=== PATIENT | female | born 1935 | race Caucasian/White ===

== ENCOUNTER → 2016-07-02 | Outpatient (CLI) | payer MEDICARE ==
--- NOTE | 2016-07-02 15:03 | BD ---
EXAMINATION TYPE: MG DEXA axial skeleton. DATE OF EXAM: 07/02/2016 12:44 PM COMPARISON: NONE CLINICAL HISTORY: Osteoporosis, M 81.0 Height: 59 Weight: 186.0 FRAX RISK QUESTIONS: Alcohol (3 or more units per day): no Family History (Parent hip fracture): no Glucocorticoids (More than 3mos): no (Ex: prednisone, prednisolone, methylprednisolone, dexamethasone, and hydrocortisone). History of Fracture in Adulthood: yes Secondary Osteoporosis: 1. Type 1 Diabetes: no 2. Hyperthyroidism: no 3. Menopause before 45: no 4. Malnutrition: no 5. Chronic liver disease: no Rheumatoid Arthritis: no Current Tobacco Use: no RISK FACTORS HISTORY OF: Hip Fracture (Right/Left): no Spine Fracture: no History of Wrist Fracture: right wrist When: 2012 Surgery to Spine/Hip(right/left)/Wrist (right/left): no Family History of Osteoporosis: yes Active: yes Diet low in dairy products/other sources of calcium: no Postmenopausal woman: age 48 Lost more than 2 inches in height since high school: yes Frequent falls: no Poor Health: no Adrenal Insufficiency: no MEDICATIONS: Additional History: EXAM MEASUREMENTS: Bone mineral densitometry was performed using the [employer] System. Bone mineral density as measured about the Lumbar spine is: ----- L1-L4(G/cm2): 1.408 T Score Values are as follows: ----- L2: 1.1 ----- L3: 2.5 ----- L4: 3.2 ----- L1-L4: 1.9 Bone mineral density has: increased 38.4 % since study of: 06.13.2008 Bone mineral density about the R hip (g/cm2): 0.620 Bone mineral density about the L hip (g/cm2): 0.660 T Score values are as follows: -----R Neck: -3.0 -----L Neck: -2.7 -----R Total: -1.5 -----L Total: -1.1 Bone mineral density has: % since study of: 06.13.2008 IMPRESSION: Osteoporosis NOTE: T-SCORE=SD OF THE YOUNG ADULT MEAN.
--- NOTE | 2016-07-03 15:52 | MM ---
Reason for exam: screening (asymptomatic). Last mammogram was performed 2 years and 7 months ago. History: Patient is postmenopausal and is nulliparous. Family history of breast cancer in cousin at age 59 and breast cancer in grandmother at age 58. Benign ultrasound-guided core biopsy of the left breast, October 06, 2001. Benign ultrasound-guided core biopsy of the right breast, September 06, 2000. Took estrogen for 4 years. Took progesterone for 4 years. Physical Findings: A clinical breast exam by your physician is recommended on an annual basis and results should be correlated with mammographic findings. MG 3D Screening Mammo W/Cad Bilateral CC and MLO view(s) were taken. Prior study comparison: December 13, 2013, bilateral MG screening mammo w CAD. December 12, 2012, bilateral digital screening mammo w/CAD. The breast tissue is heterogeneously dense. This may lower the sensitivity of mammography. Finding: There are typically benign calcifications in both breasts. Increase in number of calcifications since December 13, 2013 and December 12, 2012. ASSESSMENT: Probably benign, BI-RAD 3 RECOMMENDATION: Follow-up diagnostic mammogram of both breasts in 6 months.
== END | disposition home or self-care (01) ==
LOC: RADBDWWP 12:39
PROVIDERS: ATTEND Family Medicine
DX: Z12.31 Encounter for screening mammogram for malignant neoplasm of breast (principal); M81.0 Age-related osteoporosis without current pathological fracture
CPT/HCPCS: 77080; 77063; G0202

== ENCOUNTER → 2017-01-07 | Outpatient (CLI) | payer MEDICARE ==
--- NOTE | 2017-01-07 14:38 | MM ---
Reason for exam: follow-up at short interval from prior study. Last mammogram was performed 6 months ago. History: Patient is postmenopausal and is nulliparous. Family history of breast cancer in cousin at age 59 and breast cancer in grandmother at age 58. Benign ultrasound-guided core biopsy of the left breast, October 06, 2001. Benign ultrasound-guided core biopsy of the right breast, September 06, 2000. Took estrogen for 4 years. Took progesterone for 4 years. Physical Findings: Nurse did not find any significant physical abnormalities on exam. MG 3D Diag Mammo W/Cad PEDRO Bilateral CC and MLO view(s) were taken. Prior study comparison: July 02, 2016, bilateral MG 3d screening mammo w/cad. December 13, 2013, bilateral MG screening mammo w CAD. The breast tissue is heterogeneously dense. This may lower the sensitivity of mammography. Finding: There are typically benign calcifications in both breasts similar to priors. No suspicious abnormality. No significant changes in finding since July 02, 2016 and December 13, 2013. These results were verbally communicated with the patient and result sheet given to the patient on 01/07/17. ASSESSMENT: Benign, BI-RAD 2 RECOMMENDATION: Routine screening mammogram of both breasts in 1 year.
== END | disposition home or self-care (01) ==
LOC: RADMAMWWP 13:32
PROVIDERS: ATTEND Family Medicine
DX: R92.8 Other abnormal and inconclusive findings on diagnostic imaging of breast (principal)
CPT/HCPCS: G0204; G0279

== ENCOUNTER → 2019-01-09 | Outpatient (CLI) | payer MEDICARE ==
--- NOTE | 2019-01-10 04:24 | BD ---
EXAMINATION TYPE: Axial Bone Density DATE OF EXAM: 01/09/2019 COMPARISON: 07/02/2016 CLINICAL HISTORY: 83-year-old female postmenopausal screening Height: 57.5 IN Weight: 191 LBS FRAX RISK QUESTIONS: Secondary Osteoporosis: 3. Menopause before 45: AGE 42 RISK FACTORS HISTORY OF: History of Wrist Fracture: YES RT AGE 81 Family History of Osteoporosis: YES MOTHER/SISTER Active: YES Postmenopausal woman: AGE 42 Lost more than 2 inches in height since high school: YES 5" MEDICATIONS: : Osteoporosis Medications: NOT NOW Which medication: Fosamax How Lon YEARS Additional Medications: CALCIUM, VIT D, BLOOD PRESSURE MEDS,CHOLESTEROL MEDS EXAM MEASUREMENTS: Bone mineral densitometry was performed using the [employer] System. Bone mineral density as measured about the Lumbar spine is: ----- L1-L4(G/cm2): 1.338 T Score Values are as follows: ----- L2: 0.7 ----- L3: 0.9 ----- L4: 2.1 ----- L1-L4: 1.3 Bone mineral density has: Decreased -7.6% since study of: 07/02/2016 Bone mineral density about the R hip (g/cm2): 0.594 Bone mineral density about the L hip (g/cm2): 0.625 T Score values are as follows: -----R Neck: -3.2 -----L Neck: -3.0 -----R Total: -1.7 -----L Total: -1.2 Bone mineral density has: Decreased -2.0% since study of: 07/02/2016 IMPRESSION: Osteoporosis (T Score less than -2.5). There is increased fracture risk and therapy is usually indicated based on age. Re-Screen 1-2 years. NOTE: T-SCORE=SD OF THE YOUNG ADULT MEAN.
== END | disposition home or self-care (01) ==
LOC: RADBDWWP 15:10
PROVIDERS: ATTEND Family Medicine
DX: M81.0 Age-related osteoporosis without current pathological fracture (principal)
CPT/HCPCS: 77080

== ENCOUNTER 2021-02-07 12:32 | Inpatient (IN) | payer MEDICARE ==
--- NOTE | 2021-02-07 12:43 | ED ---
SOB HPI - General Stated Complaint: SOB - History of Present Illness Initial Comments: 85-year-old female past history of hypertension, aortic valve replacement events the emergency department with shortness of breath. States that her symptoms started last night and got worse in through today. She had pressure in her chest and was extremely short of breath. She denies previous history of breathing issues before. Denies history of congestive heart failure. Does take Lasix and has not missed any doses. Does not have any lower extremity swelling. No history of COPD denies any fevers or chills. Denies any sick contacts with similar symptoms. She is covid vaccined with moderna x2 earlier this year and is scheduled for her booster on the . She denies any nausea, vomiting or diarrhea. No abdominal. EMS were called to the house by her niece. It is on the patient had an oxygen saturation of 80%. She presents to us on 10 L are no other alleviating, precipitating or modifying factors - Related Data Home Medications Medication Instructions Recorded Confirmed Metoprolol Succinate (ER) [Toprol 25 mg PO DAILY 02/07/21 02/07/21 Xl] Omeprazole 20 mg PO DAILY 02/07/21 02/07/21 PARoxetine HCL [Paxil] 40 mg PO DAILY 02/07/21 02/07/21 Simvastatin [Zocor] 40 mg PO DAILY 02/07/21 02/07/21 amLODIPine [Norvasc] 10 mg PO DAILY 02/07/21 02/07/21 hydroCHLOROthiazide [Hydrodiuril] 12.5 mg PO DAILY 02/07/21 02/07/21 Allergies Allergy/AdvReac Type Severity Reaction Status Date / Time No Known Allergies Allergy Verified 02/07/21 13:52 Review of Systems ROS Statement: Those systems with pertinent positive or pertinent negative responses have been documented in the HPI. ROS Other: All systems not noted in ROS Statement are negative. Course Vital Signs 02/07/21 02/07/21 02/07/21 12:33 12:46 12:49 Temperature 97.4 F L Pulse Rate 73 70 Respiratory 18 18 16 Rate Blood Pressure 149/102 O2 Sat by Pulse 97 93 L Oximetry 02/07/21 02/07/21 15:29 16:24 Temperature Pulse Rate 68 70 Respiratory 18 18 Rate Blood Pressure 160/92 O2 Sat by Pulse 94 L 95 Oximetry Medical Decision Making - Medical Decision Making On arrival patient is placed into room 21. A thorough history and physical exam was performed. IV access is established and laboratory studies are conducted. Patient has a mildly elevated troponin at 0.049. BNP is 2750. Covid not detected. Chest x-ray demonstrates suspected CHF exacerbation. Patient was given 60 mg of Lasix followed by 40 mg every 8 hours. She'll be admitted to Dr. Calderon. Cardiology placed on consult. She remained in stable condition awaiting a bed on the floor - Lab Data Result diagrams: 02/07/21 12:52 02/07/21 12:52 Lab Results 02/07/21 02/07/21 02/07/21 Range/Units 12:52 12:52 12:52 WBC 13.6 H (3.8-10.6) k/uL RBC 4.16 (3.80-5.40) m/uL Hgb 12.2 (11.4-16.0) gm/dL Hct 36.4 (34.0-46.0) % MCV 87.6 (80.0-100.0) fL MCH 29.4 (25.0-35.0) pg MCHC 33.5 (31.0-37.0) g/dL RDW 14.3 (11.5-15.5) % Plt Count 230 (150-450) k/uL MPV 8.4 Neutrophils % 90 % Lymphocytes % 6 % Monocytes % 3 % Eosinophils % 0 % Basophils % 0 % Neutrophils # 12.3 H (1.3-7.7) k/uL Lymphocytes # 0.8 L (1.0-4.8) k/uL Monocytes # 0.4 (0-1.0) k/uL Eosinophils # 0.0 (0-0.7) k/uL Basophils # 0.0 (0-0.2) k/uL PT 10.4 (9.0-12.0) sec INR 1.0 (<1.2) APTT 25.5 (22.0-30.0) sec D-Dimer 0.76 H (<0.60) mg/L FEU Sodium 135 L (137-145) mmol/L Potassium 3.9 (3.5-5.1) mmol/L Chloride 98 (98-107) mmol/L Carbon Dioxide 27 (22-30) mmol/L Anion Gap 10 mmol/L BUN 20 H (7-17) mg/dL Creatinine 0.70 (0.52-1.04) mg/dL Est GFR (CKD-EPI)AfAm >90 (>60 ml/min/1.73 sqM) Est GFR (CKD-EPI)NonAf 79 (>60 ml/min/1.73 sqM) Glucose 160 H (74-99) mg/dL Plasma Lactic Acid Faizan (0.7-2.0) mmol/L Calcium 9.9 (8.4-10.2) mg/dL Total Bilirubin 1.0 (0.2-1.3) mg/dL AST 23 (14-36) U/L ALT 15 (4-34) U/L Alkaline Phosphatase 124 (38-126) U/L Troponin I (0.000-0.034) ng/mL NT-Pro-B Natriuret Pep pg/mL Total Protein 7.0 (6.3-8.2) g/dL Albumin 3.8 (3.5-5.0) g/dL Coronavirus (PCR) (Not Detectd) 02/07/21 02/07/21 02/07/21 Range/Units 12:52 12:52 12:52 WBC (3.8-10.6) k/uL RBC (3.80-5.40) m/uL Hgb (11.4-16.0) gm/dL Hct (34.0-46.0) % MCV (80.0-100.0) fL MCH (25.0-35.0) pg MCHC (31.0-37.0) g/dL RDW (11.5-15.5) % Plt Count (150-450) k/uL MPV Neutrophils % % Lymphocytes % % Monocytes % % Eosinophils % % Basophils % % Neutrophils # (1.3-7.7) k/uL Lymphocytes # (1.0-4.8) k/uL Monocytes # (0-1.0) k/uL Eosinophils # (0-0.7) k/uL Basophils # (0-0.2) k/uL PT (9.0-12.0) sec INR (<1.2) APTT (22.0-30.0) sec D-Dimer (<0.60) mg/L FEU Sodium (137-145) mmol/L Potassium (3.5-5.1) mmol/L Chloride (98-107) mmol/L Carbon Dioxide (22-30) mmol/L Anion Gap mmol/L BUN (7-17) mg/dL Creatinine (0.52-1.04) mg/dL Est GFR (CKD-EPI)AfAm (>60 ml/min/1.73 sqM) Est GFR (CKD-EPI)NonAf (>60 ml/min/1.73 sqM) Glucose (74-99) mg/dL Plasma Lactic Acid Faizan 1.4 (0.7-2.0) mmol/L Calcium (8.4-10.2) mg/dL Total Bilirubin (0.2-1.3) mg/dL AST (14-36) U/L ALT (4-34) U/L Alkaline Phosphatase (38-126) U/L Troponin I 0.049 H* (0.000-0.034) ng/mL NT-Pro-B Natriuret Pep 2750 pg/mL Total Protein (6.3-8.2) g/dL Albumin (3.5-5.0) g/dL Coronavirus (PCR) (Not Detectd) 02/07/21 Range/Units 12:52 WBC (3.8-10.6) k/uL RBC (3.80-5.40) m/uL Hgb (11.4-16.0) gm/dL Hct (34.0-46.0) % MCV (80.0-100.0) fL MCH (25.0-35.0) pg MCHC (31.0-37.0) g/dL RDW (11.5-15.5) % Plt Count (150-450) k/uL MPV Neutrophils % % Lymphocytes % % Monocytes % % Eosinophils % % Basophils % % Neutrophils # (1.3-7.7) k/uL Lymphocytes # (1.0-4.8) k/uL Monocytes # (0-1.0) k/uL Eosinophils # (0-0.7) k/uL Basophils # (0-0.2) k/uL PT (9.0-12.0) sec INR (<1.2) APTT (22.0-30.0) sec D-Dimer (<0.60) mg/L FEU Sodium (137-145) mmol/L Potassium (3.5-5.1) mmol/L Chloride (98-107) mmol/L Carbon Dioxide (22-30) mmol/L Anion Gap mmol/L BUN (7-17) mg/dL Creatinine (0.52-1.04) mg/dL Est GFR (CKD-EPI)AfAm (>60 ml/min/1.73 sqM) Est GFR (CKD-EPI)NonAf (>60 ml/min/1.73 sqM) Glucose (74-99) mg/dL Plasma Lactic Acid Faizan (0.7-2.0) mmol/L Calcium (8.4-10.2) mg/dL Total Bilirubin (0.2-1.3) mg/dL AST (14-36) U/L ALT (4-34) U/L Alkaline Phosphatase (38-126) U/L Troponin I (0.000-0.034) ng/mL NT-Pro-B Natriuret Pep pg/mL Total Protein (6.3-8.2) g/dL Albumin (3.5-5.0) g/dL Coronavirus (PCR) Not Detected (Not Detectd) - EKG Data EKG Comments: EKG demonstrates normal sinus rhythm with a ventricular rate of 73. VA interval of 158. QRS 80. QTC of 447. No acute ST segment elevations or depressions. Disposition Clinical Impression: Congestive heart failure, Hypoxia, NSTEMI (non-ST elevated myocardial infarction) Disposition: ADMITTED IP TO THIS HOSP Condition: Stable Is patient prescribed a controlled substance at d/c from ED?: No Decision to Admit Reason: Admit from EC Decision Date: 02/07/21 Decision Time: 15:59
[2021-02-07 13:20] LABS: Basophils % (A) 0 %; Eosinophils % (A) 0 %; HCT 36.4 % (34.0-46.0); HGB 12.2 gm/dL (11.4-16.0); Lymphocytes # (A) 0.8 k/uL (1.0-4.8); Lymphocytes % (A) 6 %; MCH 29.4 pg (25.0-35.0); MCHC 33.5 g/dL (31.0-37.0); MCV 87.6 fL (80.0-100.0); Mean Platelet Volume 8.4; Monocytes # (A) 0.4 k/uL (0-1.0); Monocytes % (A) 3 %; Neutrophils # (A) 12.3 k/uL (1.3-7.7); Neutrophils % (A) 90 %; Platelet Count 230 k/uL (150-450); RBC 4.16 m/uL (3.80-5.40); RDW 14.3 % (11.5-15.5); WBC 13.6 k/uL (3.8-10.6)
[2021-02-07 13:42] LABS: ALT 15 U/L (4-34); AST 23 U/L (14-36); African American GFR (CKD) >90 (>60 ml/min/1.73 sqM); Albumin 3.8 g/dL (3.5-5.0); Alkaline Phosphatase 124 U/L (38-126); Anion Gap 10 mmol/L; Blood Urea Nitrogen 20 mg/dL (7-17); Calcium 9.9 mg/dL (8.4-10.2); Carbon Dioxide 27 mmol/L (22-30); Chloride 98 mmol/L (98-107); Glucose 160 mg/dL (74-99); Non-African American GFR(CKD) 79 (>60 ml/min/1.73 sqM); Potassium 3.9 mmol/L (3.5-5.1); Sodium 135 mmol/L (137-145)
--- NOTE | 2021-02-07 13:47 | XR ---
EXAMINATION TYPE: XR chest 2V DATE OF EXAM: 02/07/2021 COMPARISON: Chest x-ray August 11, 2010. HISTORY: Difficulty in breathing. TECHNIQUE: Frontal and lateral views of the chest are obtained. FINDINGS: Overlying sternal wires redemonstrated. Persistent cardiomegaly with new small right greate r than left pleural effusions. Background chronic fragment changes with increased opacities bilateral ly. The osseous structures are demineralized. IMPRESSION: Suspect CHF exacerbation as there is cardiomegaly with small bilateral pleural effusions. Bilateral increased opacities favor edema, underlying infiltrates not excluded. Correlate clinically .
[2021-02-07 13:49] LABS: Partial Thromboplastin Time 25.5 sec (22.0-30.0); Prothrombin Time 10.4 sec (9.0-12.0)
[2021-02-07] MEDS ORDERED: FUROSEMIDE 10 MG/ML 10 ML VIAL IV STA (15:58)
[2021-02-07] MEDS ORDERED: NALOXONE 0.4 MG/ML 1 ML VIAL IV PRN (16:04)
[2021-02-07] MEDS: FUROSEMIDE 10 MG/ML 4 ML VIAL IV SCH (23:30)
[2021-02-07] MEDS: ATORVASTATIN 20 MG TAB PO SCH (23:30)
[2021-02-08] MEDS: PANTOPRAZOLE 40 MG TABLET PO SCH (06:07)
[2021-02-08 07:16] LABS: Basophils # (A) 0.1 k/uL (0-0.2); Basophils % (A) 0 %; Eosinophils # (A) 0.1 k/uL (0-0.7); Eosinophils % (A) 1 %; Lymphocytes % (A) 9 %; MCH 29.8 pg (25.0-35.0); MCHC 33.5 g/dL (31.0-37.0); Monocytes # (A) 0.7 k/uL (0-1.0); Monocytes % (A) 6 %; Neutrophils # (A) 9.2 k/uL (1.3-7.7); Neutrophils % (A) 83 %; Platelet Count 234 k/uL (150-450); RBC 4.38 m/uL (3.80-5.40); RDW 14.4 % (11.5-15.5); WBC 11.2 k/uL (3.8-10.6)
[2021-02-08 07:45] LABS: Calcium 9.7 mg/dL (8.4-10.2); Potassium 3.5 mmol/L (3.5-5.1)
[2021-02-08] MEDS ORDERED: amLODIPine 10 MG TAB PO SCH (09:00)
--- NOTE | 2021-02-08 09:17 | CONS ---
CONSULTATION Mrs Arteaga is an 85-year-old female who underwent aortic valve replacement over [address] Granados. According to her, she had no coronary artery bypass grafting at that time. She presents with symptoms of progressive dyspnea, not feeling well. She was having some pressure in the chest and came into the emergency room and was diagnosed with CHF. She has a history of peripheral edema in the past on and off. She is limited in her physical activity. She has no clear PND or orthopnea. No palpitations. No syncope. She has not been followed by Cardiology in over 3 years. Her coronary risk factors are remarkable for hypertension and hyperlipidemia. Her medications at home include HydroDIURIL, amlodipine 10 mg daily, simvastatin mg daily, paroxetine, omeprazole and metoprolol succinate 25 mg daily. REVIEW OF SYSTEMS: RESPIRATORY SYSTEM: She had dyspnea on exertion, the cough. No recent wheezing. GI SYSTEM: No nausea. No vomiting. No GI bleeding. SYSTEM: No dysuria or hematuria. NERVOUS SYSTEM: No stroke or seizure. PHYSICAL EXAMINATION: She is an 85-year-old female, alert, oriented, in no apparent distress, hard of hearing. On presentation she was hypertensive. Her blood pressure now is 120/50 with a heart rate in the 70s. HEAD: Normocephalic. EYES: Sclerae anicteric. NECK: With transmitted murmur on the right side. LUNGS: Crackles at the bases. HEART: Regular rate and rhythm. S1, S2. With systolic murmur 3/6, mid peaking. No diastolic murmur. No rub. ABDOMEN: Soft, nontender, obese. Positive bowel sounds. No organomegaly. EXTREMITIES: No edema. LAB DATA: Lab data revealed BUN and creatinine of 19 and 0.82, potassium 3.5, hemoglobin 13.8, white blood cell count of 11.2. Her troponin 0.049, 0.037, 0.040 and 0.034. Her NT proBNP is 2750. Coronavirus PCR negative. Her EKG revealed a sinus mechanism, rate of 73, normal axis and intervals and nonspecific ST-T wave changes. Her chest x-ray shows evidence of CHF. IMPRESSION: 1. Progressive dyspnea with evidence of congestive heart failure. Her systolic function is unknown. 2. Status post aortic valve replacement over 10 years ago by physical examination suggestive of sclerosis and possible aortic stenosis in the bioprosthetic valve. 3. History of hypertension. 4. Hyperlipidemia. RECOMMENDATIONS: From the cardiac standpoint, I will obtain echocardiogram with Doppler. Patient has been initiated on IV diuretics. I will stop the amlodipine and add an ANGIE inhibitor to her regimen. Depending on the results of testing, further recommendations will be made. Thank you for this consult. Will follow with you. AGUSTIN / KIANN: [id number] /
[2021-02-08] MEDS: FUROSEMIDE 10 MG/ML 4 ML VIAL IV SCH ×3 (09:23→19:52)
[2021-02-08] MEDS: PARoxetine 20 MG TAB PO SCH (09:23)
[2021-02-08] MEDS: ATORVASTATIN 20 MG TAB PO SCH (09:23)
[2021-02-08] MEDS: POTASSIUM CHLORIDE ER 20 MEQ TAB.ER PO SCH (09:23)
[2021-02-08] MEDS: METOPROLOL SUCCINATE (ER) 25 MG TAB.ER.24H PO SCH (09:23)
[2021-02-08] MEDS: lisinopriL 5 MG TAB PO SCH ×2 (09:23→19:52)
--- NOTE | 2021-02-08 13:23 | P.HPIM ---
History of Present Illness H&P Date: 02/08/21 Nitza Arteaga, is an 85-year-old female who presented to [facility] emergency room with a chief complaint of worsening shortness of breath, and chest pressure She was evaluated in the emergency room vital examination on presentation revealed a temperature of 97.4 pulse 70 respirations 16 blood pressure 149/102 pulse ox 93% on 6 L nasal cannula Laboratory data revealed a white blood count of 13.6 hemoglobin 12.2 platelet count 2:30 d-dimer was 0.76 sodium 135 potassium 3.9 chloride 98 CO2 27 BUN 20 creatinine 0.7 troponin level on presentation was 0.049 Testing in the emergency room revealed chest x-ray done in emergency room revealed evidence of congestive heart failure exacerbation with cardiomegaly and small bilateral pleural effusions. EKG revealed normal sinus rhythm with nonspecific ST and T-wave abnormality. Patient was admitted to medical floor for further evaluation and treatment, cardiology consultation was requested Past medical history is significant for history of hypertension, hyperlipidemia, gastroesophageal reflux disease, depression with anxiety disorder, she also has a known history of aortic valve replacement done more than 10 years ago, she den ies any previous history of congestive heart failure or coronary artery disease, she used to see a ink grinder but has not seen him in more than 3 years, there is no echocardiogram available in her hospital chart Past Medical History Past Medical History: Hypertension Additional Past Medical History / Comment(s): Pt states that 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 petite, AORTIC VALVE REPLACEMENT 10 YEARS AGO History of Any Multi-Drug Resistant Organisms: None Reported Past Surgical History: Cardiac Valve Replacement Past Anesthesia/Blood Transfusion Reactions: No Reported Reaction Smoking Status: Never smoker Past Alcohol Use History: None Reported Past Drug Use History: None Reported - Past Family History Mother Family Medical History: Hypertension Medications and Allergies Home Medications Medication Instructions Recorded Confirmed Type Metoprolol Succinate (ER) [Toprol 25 mg PO DAILY 02/07/21 02/07/21 History Xl] Omeprazole 20 mg PO DAILY 02/07/21 02/07/21 History PARoxetine HCL [Paxil] 40 mg PO DAILY 02/07/21 02/07/21 History Simvastatin [Zocor] 40 mg PO DAILY 02/07/21 02/07/21 History amLODIPine [Norvasc] 10 mg PO DAILY 02/07/21 02/07/21 History hydroCHLOROthiazide [Hydrodiuril] 12.5 mg PO DAILY 02/07/21 02/07/21 History Allergies Allergy/AdvReac Type Severity Reaction Status Date / Time No Known Allergies Allergy Verified 02/07/21 13:52 Physical Exam Vitals: Vital Signs Temp Pulse Pulse Resp BP BP BP 02/08/21 12:16 97.6 F 65 16 170/77 02/08/21 08:00 97.5 F L 65 16 118/66 144/70 02/08/21 04:00 99.6 F 74 17 120/49 02/08/21 01:05 67 17 02/07/21 23:58 97.8 F 67 18 141/70 02/07/21 22:45 153/71 02/07/21 22:27 99.5 F 69 18 190/80 02/07/21 16:24 70 18 02/07/21 15:29 68 18 160/92 Pulse Ox 02/08/21 12:16 02/08/21 08:00 94 L 02/08/21 04:00 93 L 02/08/21 01:05 02/07/21 23:58 98 02/07/21 22:45 02/07/21 22:27 93 L 02/07/21 16:24 95 02/07/21 15:29 94 L Intake and Output 02/07/21 02/08/21 02/08/21 22:59 06:59 14:59 Intake Total 128 Output Total 1000 1100 Balance -1000 -1100 128 Intake: IV 10 Invasive Line 1 10 Oral 118 Output: Urine 1000 1100 Other: Voiding Method External Catheter # Bowel Movements 0 Weight 83.915 kg In general patient is alert and oriented x 3 in no distress HEENT head normocephalic and atraumatic Neck is supple no JVD no goiter no lymphadenopathy no carotid bruit Chest examination reveals a scattered crackles in both bases no wheezing Cardiac exam reveals regular heart sounds S1 and S2 no gallops no murmurs Abdomen is soft nontender no organomegaly with normal bowel sounds Extremity exam reveals no edema no cyanosis or clubbing Neurological examination reveals no gross focal deficits Results CBC & Chem 7: 02/08/21 05:38 02/08/21 05:38 Labs: Abnormal Lab Results - Last 24 Hours (Table) 02/07/21 02/07/21 02/07/21 Range/Units 12:52 12:52 12:52 WBC 13.6 H (3.8-10.6) k/uL Neutrophils # 12.3 H (1.3-7.7) k/uL Lymphocytes # 0.8 L (1.0-4.8) k/uL D-Dimer 0.76 H (<0.60) mg/L FEU Sodium 135 L (137-145) mmol/L Chloride (98-107) mmol/L Carbon Dioxide (22-30) mmol/L BUN 20 H (7-17) mg/dL Glucose 160 H (74-99) mg/dL Troponin I (0.000-0.034) ng/mL 02/07/21 02/07/21 02/07/21 Range/Units 12:52 16:23 19:36 WBC (3.8-10.6) k/uL Neutrophils # (1.3-7.7) k/uL Lymphocytes # (1.0-4.8) k/uL D-Dimer (<0.60) mg/L FEU Sodium (137-145) mmol/L Chloride (98-107) mmol/L Carbon Dioxide (22-30) mmol/L BUN (7-17) mg/dL Glucose (74-99) mg/dL Troponin I 0.049 H* 0.037 H* 0.040 H* (0.000-0.034) ng/mL 02/08/21 02/08/21 Range/Units 05:38 05:38 WBC 11.2 H (3.8-10.6) k/uL Neutrophils # 9.2 H (1.3-7.7) k/uL Lymphocytes # (1.0-4.8) k/uL D-Dimer (<0.60) mg/L FEU Sodium 136 L (137-145) mmol/L Chloride 95 L (98-107) mmol/L Carbon Dioxide 34 H (22-30) mmol/L BUN 19 H (7-17) mg/dL Glucose 136 H (74-99) mg/dL Troponin I (0.000-0.034) ng/mL Thrombosis Risk Factor Assmnt - Choose All That Apply Any of the Below Risk Factors Present?: Yes Each Factor Represents 1 point: Heart failure (<1month), Obesity (BMI >25) Each Risk Factor Represents 3 Points: Age 75 years or older Thrombosis Risk Factor Assessment Total Risk Factor Score: 5 Thrombosis Risk Factor Assessment Level: High Risk Assessment and Plan Plan: 1. Worsening shortness of breath, likely related to acute exacerbation of congestive heart failure, will check echo cardiogram 2. Underlying history of hypertension 3. Underlying history of hyperlipidemia 4. Previous history of aortic valve replacement more than 10 years ago 5. Slightly elevated d-dimer at this time will repeat d-dimer again if it is more elevated we will proceed with chest CT angiogram, at this time patient is maintained on Lovenox 40 mg subcu for DVT prophylaxis At this time patient is admitted to telemetry floor She was started on IV Lasix Echocardiogram was ordered and cardiology consultation was requested
[2021-02-08] MEDS: ENOXAPARIN 40 MG/0.4 ML SYRINGE SQ SCH (14:29)
--- NOTE | 2021-02-08 14:48 | ECHOF ---
Referral Reason:avr MEASUREMENTS -------- HEIGHT: 157.5 cm WEIGHT: 74.8 kg BP: MV E Sukhdeep: 0.56 m/s MV DecT: 207 ms MV A Sukhdeep: 0.53 m/s MV E/A Ratio: 1.05 AV maxP.09 mmHg AV meanP.74 mmHg FINDINGS -------- Sinus rhythm. This was a technically difficult study with suboptimal views. This was a techncally difficult study with suboptimal views, , Lumason utilized for enhancement of images. The left ventricular size is normal. There is mild concentric left ventricular hypertrophy. Overa ll left ventricular systolic function is normal with, an EF between 55 - 60 %. The RV was not well visualized. The left atrium was not well visualized. The right atrium was not well visualized. 5.0mg OF Lumason UTLIZED: 2 OR MORE WALL SEGMENTS NOT VISUALIZED. The aortic valve was not well visualized. There is severe aortic stenosis present. Peak/mean grad ient across the Aortic Valve is 83.09mmHg / 47.74mmHg. The mitral valve was not well visualized. The tricuspid valve was not well visualized. The pulmonic valve was not well visualized. There is no pericardial effusion. CONCLUSIONS -------- 1. This was a techncally difficult study with suboptimal views, , Lumason utilized for enhancement of images. 2. There is mild concentric left ventricular hypertrophy. 3. Overall left ventricular systolic function is normal with, an EF between 55 - 60 %. 4. The RV was not well visualized. 5. The left atrium was not well visualized. 6. 5.0mg OF Lumason UTLIZED: 2 OR MORE WALL SEGMENTS NOT VISUALIZED. 7. The aortic valve was not well visualized. 8. There is severe aortic stenosis present. 9. Peak/mean gradient across the Aortic Valve is 83.09mmHg / 47.74mmHg. SURVEY RODMAN: Carissa Rojas RDCS
[2021-02-09] MEDS: PANTOPRAZOLE 40 MG TABLET PO SCH (06:26)
[2021-02-09 08:15] LABS: Basophils % (A) 1 %; Eosinophils # (A) 0.2 k/uL (0-0.7); Eosinophils % (A) 3 %; HCT 35.6 % (34.0-46.0); HGB 11.7 gm/dL (11.4-16.0); Lymphocytes # (A) 1.2 k/uL (1.0-4.8); Lymphocytes % (A) 16 %; MCH 29.2 pg (25.0-35.0); MCHC 32.8 g/dL (31.0-37.0); MCV 88.9 fL (80.0-100.0); Mean Platelet Volume 8.9; Monocytes # (A) 0.8 k/uL (0-1.0); Monocytes % (A) 11 %; Neutrophils % (A) 67 %; Platelet Count 212 k/uL (150-450); RDW 14.4 % (11.5-15.5); WBC 7.4 k/uL (3.8-10.6)
[2021-02-09] MEDS: POTASSIUM CHLORIDE ER 20 MEQ TAB.ER PO SCH (08:21)
[2021-02-09] MEDS: lisinopriL 5 MG TAB PO SCH ×2 (08:21→20:58)
[2021-02-09] MEDS: PARoxetine 20 MG TAB PO SCH (08:21)
[2021-02-09] MEDS: ATORVASTATIN 20 MG TAB PO SCH (08:21)
[2021-02-09] MEDS: METOPROLOL SUCCINATE (ER) 25 MG TAB.ER.24H PO SCH (08:21)
[2021-02-09] MEDS: FUROSEMIDE 10 MG/ML 4 ML VIAL IV SCH (08:22)
[2021-02-09] MEDS: ENOXAPARIN 40 MG/0.4 ML SYRINGE SQ SCH (08:22)
[2021-02-09 08:29] LABS: Albumin 3.1 g/dL (3.5-5.0); Calcium 9.1 mg/dL (8.4-10.2); Potassium 3.5 mmol/L (3.5-5.1); Total Bilirubin 1.2 mg/dL (0.2-1.3)
--- NOTE | 2021-02-09 10:53 | P.PN ---
Subjective Progress Note Date: 02/09/21 Nitza Arteaga, is an 85-year-old female who presented to [facility] emergency room with a chief complaint of worsening shortness of breath, and chest pressure She was evaluated in the emergency room vital examination on presentation revealed a temperature of 97.4 pulse 70 respirations 16 blood pressure 149/102 pulse ox 93% on 6 L nasal cannula Laboratory data revealed a white blood count of 13.6 hemoglobin 12.2 platelet count 2:30 d-dimer was 0.76 sodium 135 potassium 3.9 chloride 98 CO2 27 BUN 20 creatinine 0.7 troponin level on presentation was 0.049 Testing in the emergency room revealed chest x-ray done in emergency room revealed evidence of congestive heart failure exacerbation with cardiomegaly and small bilateral pleural effusions. EKG revealed normal sinus rhythm with n onspecific ST and T-wave abnormality. 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 Discussed with nursing staff. According to family patient has been having frequent episodes of intermittent confusion at home patient's baseline is reported as cognitively impaired. Will check UA to rule out infection no other signs of neurological deficits. Repeat d-dimer 0.73. Will order CTA to rule out PE. 2-D echo completed showing an EF of 55-60%. Patient remains on IV Lasix. Cardiology services following. Patient does report improvement with shortness of breath. Patient denies chest pain. Patient denies nausea vomiting or diarrhea. Patient denies any urinary burning or frequency Objective - Vital Signs Vital signs: Vital Signs Temp 97.7 F 02/09/21 08:05 Pulse 63 02/09/21 08:05 Resp 18 02/09/21 08:05 BP 132/58 02/09/21 08:05 Pulse Ox 96 02/09/21 08:05 Intake & Output 12/18/21 12/19/21 12/19/21 18:59 06:59 18:59 Intake Total 496 280 Output Total 1000 500 Balance -504 -500 280 Weight 81.919 kg Intake: IV 20 20 Invasive Line 1 20 20 Oral 476 260 Output: Urine 1000 500 Other: Voiding Method External Catheter External Catheter External Catheter # Bowel Movements 1 - Exam In general patient is alert and oriented x 3 in no distress HEENT head normocephalic and atraumatic Neck is supple no JVD no goiter no lymphadenopathy no carotid bruit Chest examination reveals a scattered crackles in both bases no wheezing Cardiac exam reveals regular heart sounds S1 and S2 no gallops no murmurs Abdomen is soft nontender no organomegaly with normal bowel sounds Extremity exam reveals no edema no cyanosis or clubbing Neurological examination reveals alert with intermittent episodes of confusion - Labs CBC & Chem 7: 02/09/21 06:56 02/09/21 06:56 Labs: Abnormal Lab Results - Last 24 Hours (Table) 02/08/21 02/09/21 Range/Units 13:52 06:56 D-Dimer 0.73 H (<0.60) mg/L FEU Sodium 136 L (137-145) mmol/L Chloride 96 L (98-107) mmol/L Carbon Dioxide 32 H (22-30) mmol/L BUN 24 H (7-17) mg/dL Glucose 115 H (74-99) mg/dL Total Protein 6.0 L (6.3-8.2) g/dL Albumin 3.1 L (3.5-5.0) g/dL Assessment and Plan Plan: 1. Worsening shortness of breath, likely related to acute exacerbation of congestive heart failure,. 2-D echocardiogram completed showing an EF of 55-60% 2. Underlying history of hypertension 3. Underlying history of hyperlipidemia 4. Previous history of aortic valve replacement more than 10 years ago 5. Slightly elevated d-dimer at this time will repeat d-dimer again if it is more elevated we will proceed with chest CT angiogram, at this time patient is maintained on Lovenox 40 mg subcu for DVT prophylaxis. Repeat d-dimer 0.73 will order CTA to rule out DVT 6. Intermittent episodes of confusion. According to family this is not new. Patient has been having this issue at home will order UA to rule out infection. DVT prophylaxis Lovenox. GI prophylaxis Protonix Patient maintained on IV Lasix CT angiogram ordered to rule out PE due to elevated d-dimer UA ordered to rule out infection Cardiology services following Social work services consulted for discharge planning patient will likely requi re rehab Repeat labs ordered for a.m.
--- NOTE | 2021-02-09 12:21 | PN ---
PROGRESS NOTE Mrs. Arteaga is an 85-year-old female status post aortic valve replacement with progressive of aortic stenosis who presented with symptoms of congestive heart failure. She is feeling much better at this time. Her breathing is better. She denies any chest pain. No dizziness. No palpitations. In the office, I discussed with her the progression of her aortic valve stenosis and at that time did not want to have anything done. She had an echocardiogram performed yesterday that revealed a preserved systolic function with severe aortic bioprosthetic stenosis. She continues to be at this time on: Atorvastatin 20 mg daily, Lasix 40 mg twice a day, lisinopril 5 mg twice a day, metoprolol succinate 25 mg daily. PHYSICAL EXAMINATION: Blood pressure 132/50 with a heart rate in the 60s. Lungs: Clear. Heart regular rate and rhythm, S1, S2. No S3, with systolic ejection murmur, mid to late peaking. No diastolic murmur. Abdomen: Soft and nontender. Extremities: No edema. IMPRESSION: 1. 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 2. History of hypertension. 3. Hyperlipidemia. RECOMMENDATIONS: I discussed with the patient again the natural history of severe aortic stenosis. She is not quite sure what she wants to do. She would like to talk further with her family. In the meantime, we will continue present therapy. I will switch her to oral diuretics, increase her level activity. If she remains stable, she may be able to be discharged home tomorrow. If she is in agreement to proceed with further workup, she may be admitted for valve in valve intervention. MMODL / IJN: [id number] /
--- NOTE | 2021-02-09 14:01 | CT ---
EXAMINATION TYPE: CT chest angio for PE CT DLP: 484.9 mGycm, Automated exposure control for dose reduction was used. DATE OF EXAM: 02/09/2021 1:40 PM COMPARISON: . Chest radiograph from same day. CLINICAL INDICATION:Female, 85 years old with history of elevated d-dimer; PHH, Elevated d-dimer TECHNIQUE/CONTRAST: CTA scan of the thorax is performed with IV Contrast, patient injected with 80 mL of Isovue 370, pulm onary embolism protocol. MIP images are created and reviewed. FINDINGS: Pulmonary Artery: There is no evidence for a central filling defect within the pulmonary vasculature to suggest acute pulmonary embolism. Limited evaluation of the segmental and subsegmental branches se condary to bolus timing. The pulmonary artery is of normal size. Lungs/Pleura: No evidence of focal consolidation or pneumothorax. Intralobular septal thickening is n oted. There is bilateral trace/spinal pleural effusions, left greater than right. Airway: Patent and grossly unremarkable. Heart: There is enlarged for size. Three-vessel coronary artery atherosclerosis is present. Vasculature: Mild atherosclerotic calcifications are present throughout the aorta and its branches. Mediastinum: No gross evidence of adenopathy. Musculoskeletal: No acute osseous abnormalities sternotomy wires are present. Multilevel degenerative disc disease changes throughout the spine. Soft Tissues: Unremarkable. Lower neck: No significant findings. Upper Abdomen: No significant findings. IMPRESSION: 1. No evidence of central pulmonary embolism. Limited evaluation of the segmental and subsegmental br anches. 2. Cardiomegaly with pulmonary vascular congestion concerning for exacerbation of congestive heart fa ilure. Correlate with serum BNP.
[2021-02-09 19:18] LABS: Appearance,Urine Clear (Clear); Bilirubin,Urine Negative (Negative); Blood,Urine Negative (Negative); Color,Urine Yellow; Glucose,Urine (UA) Negative (Negative); Ketones,Urine Negative (Negative); Leukocyte Esterase,Urine Negative (Negative); Nitrite,Urine Negative (Negative); Protein,Urine Negative (Negative); Specific Gravity,Urine >1.050 (1.001-1.035)
[2021-02-09] MEDS: FUROSEMIDE 20 MG TAB PO SCH (20:58)
[2021-02-10 06:04] LABS: Basophils # (A) 0.1 k/uL (0-0.2); Basophils % (A) 1 %; Eosinophils # (A) 0.3 k/uL (0-0.7); Eosinophils % (A) 3 %; HCT 38.4 % (34.0-46.0); HGB 12.1 gm/dL (11.4-16.0); Lymphocytes # (A) 1.2 k/uL (1.0-4.8); Lymphocytes % (A) 14 %; MCH 29.1 pg (25.0-35.0); MCHC 31.7 g/dL (31.0-37.0); Mean Platelet Volume 8.6; Monocytes # (A) 0.7 k/uL (0-1.0); Monocytes % (A) 8 %; Neutrophils # (A) 5.9 k/uL (1.3-7.7); Neutrophils % (A) 71 %; Platelet Count 249 k/uL (150-450); RBC 4.17 m/uL (3.80-5.40); RDW 14.9 % (11.5-15.5); WBC 8.3 k/uL (3.8-10.6)
[2021-02-10 06:21] LABS: Albumin 3.3 g/dL (3.5-5.0); Calcium 9.6 mg/dL (8.4-10.2); Potassium 4.4 mmol/L (3.5-5.1); Total Bilirubin 0.8 mg/dL (0.2-1.3); Total Protein 6.4 g/dL (6.3-8.2)
[2021-02-10] MEDS: PANTOPRAZOLE 40 MG TABLET PO SCH (08:40)
[2021-02-10] MEDS: PARoxetine 20 MG TAB PO SCH (08:40)
[2021-02-10] MEDS: METOPROLOL SUCCINATE (ER) 25 MG TAB.ER.24H PO SCH (08:40)
[2021-02-10] MEDS: FUROSEMIDE 20 MG TAB PO SCH ×2 (08:40→19:51)
[2021-02-10] MEDS: lisinopriL 5 MG TAB PO SCH ×2 (08:40→19:52)
[2021-02-10] MEDS: POTASSIUM CHLORIDE ER 20 MEQ TAB.ER PO SCH (08:41)
[2021-02-10] MEDS: ATORVASTATIN 20 MG TAB PO SCH (08:41)
[2021-02-10] MEDS: ENOXAPARIN 40 MG/0.4 ML SYRINGE SQ SCH (08:41)
--- NOTE | 2021-02-10 11:19 | PN ---
PROGRESS NOTE FOLLOW-UP NOTE: This is an 85-year-old lady who is admitted to hospital with congestive heart failure secondary to severe stenosis of a prosthetic aortic valve. She was unsure if she wants to have anything done about the aortic stenosis. She has been treated with intravenous diuretics with significant improvement in her symptoms. She denies any chest pain or difficulty in breathing and does not have any leg edema. On exam, patient is comfortable at rest. Afebrile. Heart rate is 69 beats per minute. Blood pressure is 140/76, respiratory rate is 18. Oxygen saturation is 94% on 2 L. There is no jugular venous distention. Chest exam reveals good air entry bilaterally. Heart exam reveals first and second heart sounds with an ejection systolic murmur in the aortic area. Abdomen is soft. Examination of extremities revealed mild edema. Peripheral pulses are felt. ASSESSMENT: 1. Congestive heart failure secondary to severe bioprosthetic aortic stenosis. 2. Hypertension. 3. Dyslipidemia. PLAN: Patient is still thinking about whether to have workup and treatment for prosthetic valve stenosis. She will need a [id number] TAVR. Will set up appointment with Cardiology on discharge. MMODL / IJN: [id number] /
--- NOTE | 2021-02-10 11:24 | CDI ---
Documentation Clarification Form Date: 02/10/2021 From: Reyna Mena RN, CCDS Admit Date: 02/07/2021 04:07:00 PM Patient Name: Nitza Arteaga Visit Number: [id number] Discharge Date: ATTENTION: The Clinical Documentation Specialists (CDI) and [facility] Coding Staff appreciate your assistance in clarifying documentation. Please respond to the clarification below the line at the bottom and electronically sign. The CDI & [facility] Coding staff will review the response and follow-up if needed. Please note: Queries are made part of the Legal Health Record. If you have any questions, please contact the author of this message via ITS. Dr. Tania Montero Your patient has the documented diagnosis of unspecified CHF 02/08/21. Additional information regarding the type, acuity of CHF is requested. History/Risk Factors: Hypertension, Hyperlipidemia, severe bioprosthetic aortic stenosis Clinical Indicators: 85-year-old female present with symptoms of progressive dyspnea. She was having some pressure in the chest. She was diagnosed with CHF, She has no clear PND or orthopnea. 02/07 VS/Pulse OX: 149/102 70 16 93 % 6/L NC 02/07BNP:2750, Troponin I 0.049, 0.040, 0.034 Echocardiogram Results: Overall left ventricular systolic function is normal with, an EF between 55-60 % There is severe aortic stenosis present. 02/07 Chest X Ray: Suspect CHF exacerbation as there is cardiomegaly with small bilateral pleural effusions. Treatment: Telemetry monitoring Lasix 60 MG IV Once 02/07, then 40 MG IV q 12 HRS, 02/08-02/09) Lasix 20 MG PO BID Toprol Xl 25 MG PO Daily 02/08-02/10 In your professional opinion, can you please clarify the type and of CHF exacerbation if known? [XXX ] Acute Diastolic Heart Failure (preserved EF) [ ] Acute on Chronic Diastolic Heart Failure (preserved EF) [ ] Other, please specify [ ] Unable to determine (Template Last Revised: March 2020) MTDD
--- NOTE | 2021-02-10 11:43 | CDI ---
Documentation Clarification Form Date: 02/10/2021 11:25:08 AM From: Reyna Mena RN, CCDS Phone: [phone] Admit Date: 02/07/2021 04:07:00 PM Patient Name: Nitza Arteaga Visit Number: [id number] Discharge Date: ATTENTION: The Clinical Documentation Specialists (CDI) and [facility] Coding Staff appreciate your assistance in clarifying documentation. Please respond to the clarification below the line at the bottom and electronically sign. The CDI & [facility] Coding staff will review the response and follow-up if needed. Please note: Queries are made part of the Legal Health Record. If you have any questions, please contact the author of this message via ITS. Dr. Negar Calderon Your patient has complaints of extremely short of breath with oxygen saturation of 80 % per EMS arrival to home. She was 93 % on 6/L NC on arrival to emergency department. Based on this information and the findings below, is there an additional diagnosis that is clinically appropriate for this patient? History/Risk Factors: Hypertension, Hyperlipidemia, severe bioprosthetic aortic stenosis Clinical Indicators: 85-year-old female present with symptoms of progressive dyspnea. She was having some pressure in the chest. She was diagnosed with CHF, She has no clear PND or orthopnea. 02/07 VS/Pulse OX: 149/102 70 16 93 % 6/L NC 02/07 (15:29) 160/92 68 18 94 % 6/L NC 02/10 (08:00) 107/53 65 14 98.3 98 % 2/L NC 02/07BNP:2750, Troponin I 0.049, 0.040, 0.034 Echocardiogram Results: Overall left ventricular systolic function is normal with, an EF between 55-60 % There is severe aortic stenosis present. 02/07 Chest X Ray: Suspect CHF exacerbation as there is cardiomegaly with small bilateral pleural effusions. Treatment: Telemetry monitoring Monitor O2 saturation (titrate) Lasix 60 MG IV Once 02/07, then 40 MG IV q 12 HRS, 02/08-02/09) Lasix 20 MG PO BID Toprol Xl 25 MG PO Daily 02/08-02/10 Is there an additional diagnosis that is clinically appropriate for this patient? [ x ] Acute Hypoxic Respiratory Failure (pO2 <60 mm Hg or SpO2 <91% on room air) [ ] Acute on Chronic Respiratory Failure [ ] Chronic Respiratory Failure [ ] Acute Respiratory Distress [ ] Other Diagnosis, please specify [ ] Unable to determine (Template Last Revised: April 2020) MTDD
--- NOTE | 2021-02-10 12:03 | CDI ---
Documentation Clarification Form Date: 02/10/2021 11:43:36 AM From: Reyna Mena RN, CCDS Admit Date: 02/07/2021 04:07:00 PM Patient Name: Nitza Atreaga Visit Number: [id number] Discharge Date: ATTENTION: The Clinical Documentation Specialists (CDI) and [facility] Coding Staff appreciate your assistance in clarifying documentation. Please respond to the clarification below the line at the bottom and electronically sign. The CDI & [facility] Coding staff will review the response and follow-up if needed. Please note: Queries are made part of the Legal Health Record. If you have any questions, please contact the author of this message via ITS. Dr. Tania Montero NSTEMI (non-ST elevated myocardial infarction) is documented in the emergency department clinical impression but is not noted in subsequent documentation or cardiology consultation and progress note. Clarification is requested to clarify if this diagnosis. History/Risk Factors: Hypertension, Hyperlipidemia, severe bioprosthetic aortic stenosis Clinical Indicators: 85-year-old female present with symptoms of progressive dyspnea. She was having some pressure in the chest. Emergency room clinical impression: Congestive heart failure, Hypoxia, NSTEMI 02/07 VS/Pulse OX: 149/102 70 16 93 % 6/L NC 02/07BNP:2750, Troponin I 0.049, 0.040, 0.034 02/07 EKG: demonstrate normal sinus rhythm with a ventricular rate of 73. [place] interval of 158. QRS 80. QTC of 447. No acute ST segment elevations or depression Echocardiogram Results: Overall left ventricular systolic function is normal with, an EF between 55-60 % there is severe aortic stenosis present. 02/07 Chest X Ray: Suspect CHF exacerbation as there is cardiomegaly with small bilateral pleural effusions. Treatment: Telemetry monitoring Monitor Oxygen Saturations (titrate) Lasix 60 MG IV Once 02/07, then 40 MG IV q 12 HRS, 02/08-02/09) Lasix 20 MG PO BID Toprol XL 25 MG PO Daily 02/08-02/10 Please clarify if the non-ST elevation myocardial infarction is: [ ] Ruled in, confirmed, remains under treatment [ ] Ruled out, [XXX ] Myocardial injury without ischemia due to congestive heart failure [ ] Other condition, please specify [ ] Unable to determine (Template Last Revised: April 2020) MTDD
--- NOTE | 2021-02-10 17:52 | P.PN ---
Subjective Progress Note Date: 02/10/21 Nitza Arteaga, is an 85-year-old female who presented to [facility] emergency room with a chief complaint of worsening shortness of breath, and chest pressure She was evaluated in the emergency room vital examination on presentation revealed a temperature of 97.4 pulse 70 respirations 16 blood pressure 149/102 pulse ox 93% on 6 L nasal cannula Laboratory data revealed a white blood count of 13.6 hemoglobin 12.2 platelet count 2:30 d-dimer was 0.76 sodium 135 potassium 3.9 chloride 98 CO2 27 BUN 20 creatinine 0.7 troponin level on presentation was 0.049 Testing in the emergency room revealed chest x-ray done in emergency room revealed evidence of congestive heart failure exacerbation with cardiomegaly and small bilateral pleural effusions. EKG revealed normal sinus rhythm with n onspecific ST and T-wave abnormality. 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 Discussed with nursing staff. According to family patient has been having frequent episodes of intermittent confusion at home patient's baseline is reported as cognitively impaired. Will check UA to rule out infection no other signs of neurological deficits. Repeat d-dimer 0.73. Will order CTA to rule out PE. 2-D echo completed showing an EF of 55-60%. Patient remains on IV Lasix. Cardiology services following. Patient does report improvement with shortness of breath. Patient denies chest pain. Patient denies nausea vomiting or diarrhea. Patient denies any urinary burning or frequency On 02/10/2021 patient was seen and examined on the telemetry floor she is alert and oriented but still having episodes of intermittent confusion. There is no fever or chills no headache or dizziness no chest pain, her shortness of breath has improved significantly she was switched to oral Lasix, patient is still not sure if she wants to proceed with any valvular procedure, at this time will consult physical therapy and occupational therapy possible discharge to home in the next 1-2 days Objective - Vital Signs Vital signs: Vital Signs Temp 98.0 F 02/10/21 04:00 Pulse 69 02/10/21 04:00 Resp 18 02/10/21 04:00 BP 145/76 02/10/21 04:00 Pulse Ox 94 L 02/10/21 07:20 Intake & Output 02/09/21 02/10/21 02/10/21 18:59 06:59 18:59 Intake Total 1420 10 Output Total 600 Balance 1420 -590 Weight 81.919 kg 81 kg Intake: IV 60 10 Invasive Line 1 40 Invasive Line 2 20 10 Oral 1360 Output: Urine 600 Other: Voiding Method External Catheter Diaper # Voids 1 - Exam In general patient is alert and oriented x 3 in no distress HEENT head normocephalic and atraumatic Neck is supple no JVD no goiter no lymphadenopathy no carotid bruit Chest examination reveals a scattered crackles in both bases no wheezing Cardiac exam reveals regular heart sounds S1 and S2 no gallops no murmurs Abdomen is soft nontender no organomegaly with normal bowel sounds Extremity exam reveals no edema no cyanosis or clubbing Neurological examination reveals alert with intermittent episodes of confusion - Labs CBC & Chem 7: 02/10/21 05:17 02/10/21 05:17 Labs: Abnormal Lab Results - Last 24 Hours (Table) 02/09/21 02/10/21 Range/Units Unknown 05:17 Sodium 134 L (137-145) mmol/L Chloride 94 L (98-107) mmol/L Carbon Dioxide 32 H (22-30) mmol/L BUN 27 H (7-17) mg/dL Creatinine 1.08 H (0.52-1.04) mg/dL Glucose 159 H (74-99) mg/dL Albumin 3.3 L (3.5-5.0) g/dL Ur Specific [place] >1.050 H (1.001-1.035) Assessment and Plan Plan: 1. Worsening shortness of breath, likely related to acute exacerbation of congestive heart failure,. 2-D echocardiogram completed showing an EF of 55-60% 2. Underlying history of hypertension 3. Underlying history of hyperlipidemia 4. Previous history of aortic valve replacement more than 10 years ago 5. Slightly elevated d-dimer at this time will repeat d-dimer again if it is more elevated we will proceed with chest CT angiogram, at this time patient is maintained on Lovenox 40 mg subcu for DVT prophylaxis. Repeat d-dimer 0.73 will order CTA to rule out DVT 6. Intermittent episodes of confusion. According to family this is not new. Patient has been having this issue at home will order UA to rule out infection. DVT prophylaxis Lovenox. GI prophylaxis Protonix Patient maintained on IV Lasix CT angiogram ordered to rule out PE due to elevated d-dimer UA ordered to rule out infection Cardiology services following Social work services consulted for discharge planning patient will likely require rehab Repeat labs ordered for a.m.
[2021-02-11] MEDS: PANTOPRAZOLE 40 MG TABLET PO SCH (06:27)
[2021-02-11 06:31] LABS: Basophils % (A) 1 %; Eosinophils # (A) 0.3 k/uL (0-0.7); Eosinophils % (A) 4 %; HCT 36.2 % (34.0-46.0); HGB 11.8 gm/dL (11.4-16.0); Lymphocytes # (A) 1.1 k/uL (1.0-4.8); Lymphocytes % (A) 15 %; MCH 29.4 pg (25.0-35.0); MCHC 32.6 g/dL (31.0-37.0); MCV 90.2 fL (80.0-100.0); Mean Platelet Volume 8.7; Monocytes # (A) 0.7 k/uL (0-1.0); Monocytes % (A) 9 %; Neutrophils # (A) 5.2 k/uL (1.3-7.7); Neutrophils % (A) 69 %; Platelet Count 244 k/uL (150-450); RBC 4.01 m/uL (3.80-5.40); RDW 14.4 % (11.5-15.5); WBC 7.5 k/uL (3.8-10.6)
[2021-02-11 06:55] LABS: Albumin 3.1 g/dL (3.5-5.0); Calcium 9.3 mg/dL (8.4-10.2); Potassium 4.6 mmol/L (3.5-5.1); Total Bilirubin 0.6 mg/dL (0.2-1.3); Total Protein 6.1 g/dL (6.3-8.2)
[2021-02-11] MEDS: lisinopriL 5 MG TAB PO SCH (08:50)
[2021-02-11] MEDS: FUROSEMIDE 20 MG TAB PO SCH (08:50)
[2021-02-11] MEDS: PARoxetine 20 MG TAB PO SCH (08:50)
[2021-02-11] MEDS: METOPROLOL SUCCINATE (ER) 25 MG TAB.ER.24H PO SCH (08:50)
[2021-02-11] MEDS: ENOXAPARIN 40 MG/0.4 ML SYRINGE SQ SCH (08:50)
[2021-02-11] MEDS: ATORVASTATIN 20 MG TAB PO SCH (08:50)
[2021-02-11] MEDS: POTASSIUM CHLORIDE ER 20 MEQ TAB.ER PO SCH (08:51)
[2021-02-11 09:30] VITALS: TEMP 98.3
--- NOTE | 2021-02-11 14:04 | P.DS ---
Providers Date of admission: 02/07/21 16:07 Expected date of discharge: 02/11/21 Attending physician: Negar Calderon Consults: 02/07/21 16:05 Consult Physician Urgent Consulting Provider: [facility] Consult Reason/Comments: acute hypoxic resp failure, aechf Do you want consulting provider notified?: Yes Primary care physician: Kiara Valerio [facility] Course: Diagnosis on discharge: 1. Worsening shortness of breath, likely related to acute exacerbation of congestive heart failure,. 2-D echocardiogram completed showing an EF of 55-60% 2. Underlying history of hypertension 3. Underlying history of hyperlipidemia 4. Previous history of aortic valve replacement more than 10 years ago. With evidence of severe aortic stenosis at this time, patient will follow-up with cardiology to decide whether she wants to proceed with further intervention on the aortic valve 5. Slightly elevated d-dimer at this time will repeat d-dimer again if it is more elevated we will proceed with chest CT angiogram, at this time patient is maintained on Lovenox 40 mg subcu for DVT prophylaxis. Repeat d-dimer 0.73 will order CTA to rule out DVT 6. Intermittent episodes of confusion. According to family this is not new. Patient has been having this issue at home will order UA to rule out infection. Hospital course: Nitza Arteaga, is an 85-year-old female who presented to [facility] emergency room with a chief complaint of worsening shortness of breath, and chest pressure She was evaluated in the emergency room vital examination on presentation revealed a temperature of 97.4 pulse 70 respirations 16 blood pressure 149/102 pulse ox 93% on 6 L nasal cannula Laboratory data revealed a white blood count of 13.6 hemoglobin 12.2 platelet count 2:30 d-dimer was 0.76 sodium 135 potassium 3.9 chloride 98 CO2 27 BUN 20 creatinine 0.7 troponin level on presentation was 0.049 Testing in the emergency room revealed chest x-ray done in emergency room revealed evidence of congestive heart failure exacerbation with cardiomegaly and small bilateral pleural effusions. EKG revealed normal sinus rhythm with nonspecific ST and T-wave abnormality. 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 Discussed with nursing staff. According to family patient has been having frequent episodes of intermittent confusion at home patient's baseline is reported as cognitively impaired. Will check UA to rule out infection no other signs of neurological deficits. Repeat d-dimer 0.73. Will order CTA to rule out PE. 2-D echo completed showing an EF of 55-60%. Patient remains on IV Lasix. Cardiology services following. Patient does report improvement with shortness of breath. Patient denies chest pain. Patient denies nausea vomiting or diarrhea. Patient denies any urinary burning or frequency On 02/10/2021 patient was seen and examined on the telemetry floor she is alert and oriented but still having episodes of intermittent confusion. There is no fever or chills no headache or dizziness no chest pain, her shortness of breath has improved significantly she was switched to oral Lasix, patient is still not sure if she wants to proceed with any valvular procedure, at this time will consult physical therapy and occupational therapy possible discharge to home in the next 1-2 days On 02/11/2021atient was seen and examined on the medical floor, he is alert and oriented x 3 in no distress, he denies any complaints there is no fever or chills no headache or dizziness no chest pain no shortness of breath no palpitation no cough no nausea or vomiting no abdominal pain no diarrhea no blood in the stools no burning with urination no frequency or urgency and no hematuria, there is no weakness or numbness in any of the extremities no change in vision speech or gait., No change in condition since yesterday plan is [facility]. During this admission amlodipine was discontinued lisinopril 5 mg twice daily was added and Lasix 20 mg twice daily and potassium 20 mEq once daily were added. Patient Condition at Discharge: Stable Plan - Discharge Summary New Discharge Prescriptions: New Potassium Chloride ER [K-Dur 20] 20 meq PO DAILY tablet Furosemide [Lasix] 20 mg PO BID tab lisinopriL [Zestril] 5 mg PO BID tab Continue Omeprazole 20 mg PO DAILY Metoprolol Succinate (ER) [Toprol XL] 25 mg PO DAILY Simvastatin [Zocor] 40 mg PO DAILY PARoxetine HCL [Paxil] 40 mg PO DAILY Discontinued hydroCHLOROthiazide [Hydrodiuril] 12.5 mg PO DAILY amLODIPine [Norvasc] 10 mg PO DAILY Discharge Medication List Metoprolol Succinate (ER) [Toprol XL] 25 mg PO DAILY 02/07/21 [History] Omeprazole 20 mg PO DAILY 02/07/21 [History] PARoxetine HCL [Paxil] 40 mg PO DAILY 02/07/21 [History] Simvastatin [Zocor] 40 mg PO DAILY 02/07/21 [History] Furosemide [Lasix] 20 mg PO BID tab 02/11/21 [Rx] Potassium Chloride ER [K-Dur 20] 20 meq PO DAILY tablet 02/11/21 [Rx] lisinopriL [Zestril] 5 mg PO BID tab 02/11/21 [Rx] Follow up Appointment(s)/Referral(s): Tania Montero MD [STAFF PHYSICIAN] - 1 Week Kiara Valerio MD [Primary Care Provider] - 1-2 days Activity/Diet/Wound Care/Special Instructions: Patient will require home oxygen at discharge secondary to CHF
[2021-02-11 16:03] VITALS: BP 126/70; PULSE 65; RESP 16
== END 2021-02-11 17:17 | DRG 291 ==
LOC: EC 12:32 → 3SCARD 16:07
PROVIDERS: ADMIT Internal Medicine; ATTEND Internal Medicine
DX: I11.0 Hypertensive heart disease with heart failure (principal); I50.31 Acute diastolic (congestive) heart failure; J96.01 Acute respiratory failure with hypoxia; Z20.822 Contact with and (suspected) exposure to COVID-19; I5A Non-ischemic myocardial injury (non-traumatic); Z95.2 Presence of prosthetic heart valve; I35.0 Nonrheumatic aortic (valve) stenosis; F32.A Depression, unspecified; F41.9 Anxiety disorder, unspecified; K21.9 Gastro-esophageal reflux disease without esophagitis; E78.5 Hyperlipidemia, unspecified; Z79.899 Other long term (current) drug therapy; Z82.49 Family history of ischemic heart disease and other diseases of the circulatory system
CPT/HCPCS: 36415; 71046; 71275; 80048; 80053; 81003; 83605; 83880; 84484; 85025; 85379; 85610; 85730; 87635; 93005; 93306; 94760; 99285

== ENCOUNTER 2021-02-25 15:16 | Inpatient (IN) | payer MEDICARE ==
--- NOTE | 2021-02-25 15:58 | ED ---
General Adult HPI - General Chief complaint: Altered Mental Status Stated complaint: Altered mental status Time Seen by Provider: 02/25/21 15:37 Source: patient, EMS, RN notes reviewed Mode of arrival: EMS Limitations: altered mental status - History of Present Illness Initial comments: Patient is a pleasant 86-year-old female presenting to the emergency department with concerns for change in mental status. Patient is at rehab and was being discharged today when change in mental status was noticed. Unclear onset. Patient makes inappropriate statements and laughs inappropriately. Patient makes nonsensical statements. This is reported is new. Patient states she feels her vision is normal as she states she inherited her mom's eye disease. - Related Data Home Medications Medication Instructions Recorded Confirmed Metoprolol Succinate (ER) [Toprol 25 mg PO DAILY@0900 02/07/21 02/25/21 XL] Omeprazole 20 mg PO DAILY@0600 02/07/21 02/25/21 PARoxetine HCL [Paxil] 40 mg PO DAILY@0900 02/07/21 02/25/21 Simvastatin [Zocor] 40 mg PO HS@2100 02/07/21 02/25/21 Ammonium Lactate Lotion 1 applic TOPICAL Q12H 02/25/21 02/25/21 [Lac-Hydrin 12% Lotion] Bismuth Subsalicylate 524 mg PO Q4H PRN 02/25/21 02/25/21 [Pepto-Bismol] Furosemide [Lasix] 20 mg PO BID@0600,1400 02/25/21 02/25/21 Potassium Chloride ER [K-Dur 20] 20 meq PO DAILY@0900 02/25/21 02/25/21 lisinopriL [Zestril] 5 mg PO BID@0900,2100 02/25/21 02/25/21 Allergies Allergy/AdvReac Type Severity Reaction Status Date / Time No Known Allergies Allergy Verified 02/25/21 16:55 Review of Systems ROS Statement: Those systems with pertinent positive or pertinent negative responses have been documented in the HPI. ROS Other: All systems not noted in ROS Statement are negative. Constitutional: Denies: fever Eyes: Reports: as per HPI. Denies: eye pain ENT: Denies: ear pain Respiratory: Denies: cough Cardiovascular: Denies: palpitations Endocrine: Denies: fatigue Gastrointestinal: Denies: abdominal pain Genitourinary: Denies: dysuria Musculoskeletal: Denies: back pain Skin: Denies: rash Neurological: Reports: as per HPI, confusion. Denies: headache, weakness Past Medical History Past Medical History: Heart Failure, GERD/Reflux, Hyperlipidemia, Hypertension Additional Past Medical History / Comment(s): , AORTIC VALVE REPLACEMENT 10 YEARS AGO History of Any Multi-Drug Resistant Organisms: None Reported Past Surgical History: Cardiac Valve Replacement Past Anesthesia/Blood Transfusion Reactions: No Reported Reaction Past Psychological History: No Psychological Hx Reported Smoking Status: Never smoker Past Alcohol Use History: None Reported Past Drug Use History: None Reported - Past Family History Mother Family Medical History: Hypertension General Exam Limitations: altered mental status General appearance: alert, in no apparent distress Eye exam: Present: other (Disconjugate gaze. Unable to move right eye left of midline.). Absent: EOMI ENT exam: Present: normal oropharynx Neck exam: Present: normal inspection Respiratory exam: Present: normal lung sounds bilaterally Cardiovascular Exam: Present: regular rate, normal rhythm GI/Abdominal exam: Present: soft. Absent: tenderness Back exam: Present: normal inspection Neurological exam: Present: alert. Absent: motor sensory deficit Expanded Neurological exam: Present: protecting the airway Patient oriented to: Present: person. Absent: place, time Sensory exam: Upper Extremity Light Touch: Normal, Lower Extremity Light Touch: Normal Motor strength exam: RUE: 5, LUE: 5, RLE: 5, LLE: 5 Eye Response: (4) open spontaneously Motor Response: (6) obeys commands Verbal Response: (4) confused conversation Psychiatric exam: Present: other (Inappropriately laughing) Skin exam: Present: normal color Course Vital Signs 02/25/21 15:28 Temperature 97.3 F L Pulse Rate 79 Respiratory 20 Rate Blood Pressure 135/90 O2 Sat by Pulse 93 L Oximetry EKG Findings - EKG Comments: EKG Findings:: Normal sinus rhythm 76. PA 150. QRS 74. QT 392. QTC 441. Nor mal axis. Normal QRS. No acute ST change. Medical Decision Making - Medical Decision Making Patient reevaluated and resting comfortably in bed. Family is now present. Family states mental status change is chronic and only minimally worse from baseline. Family is not concerned regarding change of mental status. They are concerned the patient has not been eating much for the past several days and has had persistent vomiting. Case was discussed with Dr. Calderon, who will admit covering Dr. meredith. Abdominal x-rays will be ordered. Fluids will be ordered. - Lab Data Result diagrams: 02/25/21 16:06 02/25/21 16:06 Lab Results 02/25/21 02/25/21 02/25/21 Range/Units 16:06 16:06 16:06 WBC 23.8 H (3.8-10.6) k/uL RBC 3.91 (3.80-5.40) m/uL Hgb 11.3 L (11.4-16.0) gm/dL Hct 35.2 (34.0-46.0) % MCV 90.2 (80.0-100.0) fL MCH 29.0 (25.0-35.0) pg MCHC 32.1 (31.0-37.0) g/dL RDW 14.3 (11.5-15.5) % Plt Count 339 (150-450) k/uL MPV 8.9 Neutrophils % 91 % Lymphocytes % 4 % Monocytes % 4 % Eosinophils % 0 % Basophils % 0 % Neutrophils # 21.8 H (1.3-7.7) k/uL Lymphocytes # 0.9 L (1.0-4.8) k/uL Monocytes # 0.9 (0-1.0) k/uL Eosinophils # 0.0 (0-0.7) k/uL Basophils # 0.0 (0-0.2) k/uL PT (9.0-12.0) sec INR (<1.2) APTT (22.0-30.0) sec Sodium 134 L (137-145) mmol/L Potassium 4.8 (3.5-5.1) mmol/L Chloride 97 L (98-107) mmol/L Carbon Dioxide 25 (22-30) mmol/L Anion Gap 12 mmol/L BUN 66 H (7-17) mg/dL Creatinine 1.24 H (0.52-1.04) mg/dL Est GFR (CKD-EPI)AfAm 45 (>60 ml/min/1.73 sqM) Est GFR (CKD-EPI)NonAf 39 (>60 ml/min/1.73 sqM) Glucose 138 H (74-99) mg/dL Calcium 9.2 (8.4-10.2) mg/dL Total Bilirubin 1.1 (0.2-1.3) mg/dL AST 79 H (14-36) U/L ALT 77 H (4-34) U/L Alkaline Phosphatase 223 H (38-126) U/L Troponin I <0.012 (0.000-0.034) ng/mL Total Protein 5.9 L (6.3-8.2) g/dL Albumin 2.9 L (3.5-5.0) g/dL Urine Color Urine Appearance (Clear) Urine pH (5.0-8.0) Ur Specific [place] (1.001-1.035) Urine Protein (Negative) Urine Glucose (UA) (Negative) Urine Ketones (Negative) Urine Blood (Negative) Urine Nitrite (Negative) Urine Bilirubin (Negative) Urine Urobilinogen (<2.0) mg/dL Ur Leukocyte Esterase (Negative) Urine RBC (0-5) /hpf Urine WBC (0-5) /hpf Ur Squamous Epith Cells (0-4) /hpf Amorphous Sediment (None) /hpf Hyaline Casts (0-2) /lpf Urine Mucus (None) /hpf Urine Opiates Screen (NotDetected) Ur Oxycodone Screen (NotDetected) Urine Methadone Screen (NotDetected) Ur Propoxyphene Screen (NotDetected) Ur Barbiturates Screen (NotDetected) U Tricyclic Antidepress (NotDetected) Ur Phencyclidine Scrn (NotDetected) Ur Amphetamines Screen (NotDetected) U Methamphetamines Scrn (NotDetected) U Benzodiazepines Scrn (NotDetected) Urine Cocaine Screen (NotDetected) U Marijuana (THC) Screen (NotDetected) 02/25/21 02/25/21 Range/Units 17:10 17:11 WBC (3.8-10.6) k/uL RBC (3.80-5.40) m/uL Hgb (11.4-16.0) gm/dL Hct (34.0-46.0) % MCV (80.0-100.0) fL MCH (25.0-35.0) pg MCHC (31.0-37.0) g/dL RDW (11.5-15.5) % Plt Count (150-450) k/uL MPV Neutrophils % % Lymphocytes % % Monocytes % % Eosinophils % % Basophils % % Neutrophils # (1.3-7.7) k/uL Lymphocytes # (1.0-4.8) k/uL Monocytes # (0-1.0) k/uL Eosinophils # (0-0.7) k/uL Basophils # (0-0.2) k/uL PT 10.6 (9.0-12.0) sec INR 1.0 (<1.2) APTT 18.6 L (22.0-30.0) sec Sodium (137-145) mmol/L Potassium (3.5-5.1) mmol/L Chloride (98-107) mmol/L Carbon Dioxide (22-30) mmol/L Anion Gap mmol/L BUN (7-17) mg/dL Creatinine (0.52-1.04) mg/dL Est GFR (CKD-EPI)AfAm (>60 ml/min/1.73 sqM) Est GFR (CKD-EPI)NonAf (>60 ml/min/1.73 sqM) Glucose (74-99) mg/dL Calcium (8.4-10.2) mg/dL Total Bilirubin (0.2-1.3) mg/dL AST (14-36) U/L ALT (4-34) U/L Alkaline Phosphatase (38-126) U/L Troponin I (0.000-0.034) ng/mL Total Protein (6.3-8.2) g/dL Albumin (3.5-5.0) g/dL Urine Color Yellow Urine Appearance Cloudy H (Clear) Urine pH 5.0 (5.0-8.0) Ur Specific [place] 1.016 (1.001-1.035) Urine Protein Negative (Negative) Urine Glucose (UA) Negative (Negative) Urine Ketones Negative (Negative) Urine Blood Trace H (Negative) Urine Nitrite Negative (Negative) Urine Bilirubin Negative (Negative) Urine Urobilinogen <2.0 (<2.0) mg/dL Ur Leukocyte Esterase Negative (Negative) Urine RBC 3 (0-5) /hpf Urine WBC 5 (0-5) /hpf Ur Squamous Epith Cells 1 (0-4) /hpf Amorphous Sediment Rare H (None) /hpf Hyaline Casts 54 H (0-2) /lpf Urine Mucus Occasional H (None) /hpf Urine Opiates Screen Not Detected (NotDetected) Ur Oxycodone Screen Not Detected (NotDetected) Urine Methadone Screen Not Detected (NotDetected) Ur Propoxyphene Screen Not Detected (NotDetected) Ur Barbiturates Screen Not Detected (NotDetected) U Tricyclic Antidepress Not Detected (NotDetected) Ur Phencyclidine Scrn Not Detected (NotDetected) Ur Amphetamines Screen Not Detected (NotDetected) U Methamphetamines Scrn Not Detected (NotDetected) U Benzodiazepines Scrn Not Detected (NotDetected) Urine Cocaine Screen Not Detected (NotDetected) U Marijuana (THC) Screen Not Detected (NotDetected) - Radiology Data Radiology results: report reviewed (CT of the brain shows atrophy. No acute abnormality), image reviewed (Chest x-ray shows possible edema or fibrosis. Cardiomegaly. No significant change from recent study.) Disposition Clinical Impression: ARF (acute renal failure) Disposition: ADMITTED IP TO THIS HOSP Is patient prescribed a controlled substance at d/c from ED?: No Referrals: Kiara Valerio MD [Primary Care Provider] - 1-2 days Decision Time: 18:14
[2021-02-25 16:20] LABS: Basophils % (A) 0 %; Eosinophils % (A) 0 %; HCT 35.2 % (34.0-46.0); HGB 11.3 gm/dL (11.4-16.0); Lymphocytes # (A) 0.9 k/uL (1.0-4.8); Lymphocytes % (A) 4 %; MCHC 32.1 g/dL (31.0-37.0); MCV 90.2 fL (80.0-100.0); Mean Platelet Volume 8.9; Monocytes # (A) 0.9 k/uL (0-1.0); Monocytes % (A) 4 %; Neutrophils # (A) 21.8 k/uL (1.3-7.7); Neutrophils % (A) 91 %; Platelet Count 339 k/uL (150-450); RBC 3.91 m/uL (3.80-5.40); RDW 14.3 % (11.5-15.5); WBC 23.8 k/uL (3.8-10.6)
[2021-02-25 16:29] LABS: Albumin 2.9 g/dL (3.5-5.0); Calcium 9.2 mg/dL (8.4-10.2); Potassium 4.8 mmol/L (3.5-5.1); Total Bilirubin 1.1 mg/dL (0.2-1.3); Total Protein 5.9 g/dL (6.3-8.2)
--- NOTE | 2021-02-25 16:34 | XR ---
EXAMINATION TYPE: XR chest 2V DATE OF EXAM: 02/25/2021 COMPARISON: Chest x-ray February 07, 2021. CTA chest February 09, 2021 HISTORY: Altered mental status and weakness. TECHNIQUE: Frontal and lateral views of the chest are obtained. FINDINGS: Overlying sternal wires redemonstrated. Persistent parenchymal increased markings bilateral ly. Persistent cardiomegaly. No new focal airspace opacity, pleural effusion, or pneumothorax seen. O sseous structures are intact. IMPRESSION: Cardiomegaly and parenchymal changes could reflect edema or fibrosis. Correlate clinical ly. No significant change from recent x-ray.
--- NOTE | 2021-02-25 16:52 | CT ---
EXAMINATION TYPE: CT brain wo con DATE OF EXAM: 02/25/2021 COMPARISON: None HISTORY: Altered mental status. CT DLP: 1099.4 mGycm Automated exposure control for dose reduction was used. There is cerebral cortical atrophy. There is no mass effect or midline shift. There is no sign of int racranial hemorrhage. Calvarium is intact. IMPRESSION: Cerebral atrophy. No acute intracranial abnormality.
[2021-02-25 17:24] LABS: Amorphous Sediment,Urine Rare /hpf; Appearance,Urine Cloudy (Clear); Bilirubin,Urine Negative (Negative); Blood,Urine Trace (Negative); Color,Urine Yellow; Glucose,Urine (UA) Negative (Negative); Hyaline Casts,Urine 54 /lpf (0-2); Ketones,Urine Negative (Negative); Leukocyte Esterase,Urine Negative (Negative); Mucus,Urine Occasional /hpf; Nitrite,Urine Negative (Negative); Protein,Urine Negative (Negative); RBC,Urine 3 /hpf (0-5); Specific Gravity,Urine 1.016 (1.001-1.035); Squamous Epithelial Cell,Urine 1 /hpf (0-4); Urobilinogen,Urine <2.0 mg/dL (<2.0); WBC,Urine 5 /hpf (0-5)
[2021-02-25 17:30] LABS: Amphetamine Screen,Urine Not Detected (NotDetected); Barbiturate Screen,Urine Not Detected (NotDetected); Benzodiazepines Screen,Urine Not Detected (NotDetected); Cocaine Screen,Urine Not Detected (NotDetected); Methadone Screen, Urine Not Detected (NotDetected); Opiate Screen,Urine Not Detected (NotDetected); Oxycodone Screen, Urine Not Detected (NotDetected); Phencyclidine Screen,Urine Not Detected (NotDetected); Tricyclic Antidepressant,Urine Not Detected (NotDetected); Urn Cannabinoid Scrn Not Detected (NotDetected)
[2021-02-25 17:33] LABS: Prothrombin Time 10.6 sec (9.0-12.0)
[2021-02-25 17:47] LABS: Partial Thromboplastin Time 18.6 sec (22.0-30.0)
[2021-02-25] MEDS ORDERED: NALOXONE 0.4 MG/ML 1 ML VIAL IV PRN (18:15)
[2021-02-25 18:39] LABS: Amylase 41 U/L (30-110); Lipase 56 U/L (23-300)
--- NOTE | 2021-02-25 18:50 | XR ---
EXAMINATION TYPE: XR abdomen 1V DATE OF EXAM: 02/25/2021 COMPARISON: NONE HISTORY: Vomiting TECHNIQUE: 2 views supine FINDINGS: There are multiple dilated small bowel loops with gas and fluid. There is no evidence for f ree air. There is also some gaseous distention of the transverse colon. There is mild blunting of the right costophrenic angle. There is gas in the ascending colon. IMPRESSION: Gas filled and mildly dilated small bowel could relate to ileus or partial mechanical obs truction. Small right pleural effusion.
[2021-02-25] MEDS: SODIUM CHLORIDE 0.9% 1,000 ML IV SCH (19:55)
[2021-02-25] MEDS: PANTOPRAZOLE 40 MG/10 ML VIAL IV SCH (19:55)
[2021-02-26] MEDS: SODIUM CHLORIDE 0.9% 1,000 ML IV SCH ×3 (03:24→20:50)
[2021-02-26 08:28] LABS: Basophils % (A) 0 %; Eosinophils # (A) 0.3 k/uL (0-0.7); Eosinophils % (A) 2 %; HGB 11.3 gm/dL (11.4-16.0); Lymphocytes # (A) 1.3 k/uL (1.0-4.8); Lymphocytes % (A) 8 %; MCH 29.4 pg (25.0-35.0); MCHC 32.1 g/dL (31.0-37.0); MCV 91.4 fL (80.0-100.0); Monocytes # (A) 0.8 k/uL (0-1.0); Monocytes % (A) 5 %; Neutrophils # (A) 12.7 k/uL (1.3-7.7); Neutrophils % (A) 83 %; Platelet Count 307 k/uL (150-450); RBC 3.83 m/uL (3.80-5.40); RDW 14.2 % (11.5-15.5); WBC 15.2 k/uL (3.8-10.6)
[2021-02-26] MEDS: PANTOPRAZOLE 40 MG/10 ML VIAL IV SCH (08:43)
[2021-02-26 08:48] LABS: Albumin 2.7 g/dL (3.5-5.0); Calcium 9.2 mg/dL (8.4-10.2); Potassium 4.4 mmol/L (3.5-5.1); Total Bilirubin 1.3 mg/dL (0.2-1.3); Total Protein 5.8 g/dL (6.3-8.2)
[2021-02-26] MEDS: METOPROLOL SUCCINATE (ER) 25 MG TAB.ER.24H PO SCH (10:39)
[2021-02-26] MEDS: PARoxetine 20 MG TAB PO SCH (10:39)
[2021-02-26] MEDS: lisinopriL 5 MG TAB PO SCH ×2 (10:40→20:49)
--- NOTE | 2021-02-26 12:10 | P.GSCN ---
<Ladonna Prince - Last Filed: 02/26/21 12:01> History of Present Illness Consult date: 02/26/21 History of present illness: CHIEF COMPLAINT: Altered mental status Reason for consult: Bowel obstruction and vomiting HISTORY OF PRESENT ILLNESS: This is a 86-year-old female brought into the emerge ncy department due to altered mental status changes. It was also noted that patient has had a decrease in appetite and also was reported pain in the right upper quadrant. She has been having vomiting. Patient had abdominal x-ray completed showing gas-filled and mildly dilated small bowel could be related to ileus or partial mechanical obstruction. Small right pleural effusion. Patient also was noted to have elevated LFTs and gallbladder ultrasound is currently pending. Patient is lying in bed comfortably. His pleasantly confused but able to answer some questions. Afebrile. She reports having flatus. She thinks she had a bowel movement possibly yesterday. Also noted leukocytosis on admission and she is currently on antibiotics. Patient denies any prior abdominal surgeries. PAST MEDICAL HISTORY: See list. PAST SURGICAL HISTORY: See list. MEDICATIONS: See list. ALLERGIES: See list. SOCIAL HISTORY: No illicit drug use. REVIEW OF SYSTEMS: CONSTITUTIONAL: Denies fever or chills. HEENT: Denies blurred vision, vision changes, or eye pain. Denies hemoptysis CARDIOVASCULAR: Denies chest pain or pressure. RESPIRATORY: No shortness of breath. GASTROINTESTINAL: See HPI for pertinent findings HEMATOLOGIC: Denies bleeding disorders. GENITOURINARY: Denies any blood in urine or increased urinary frequency. SKIN: Denies pruitis. Denies rash. PHYSICAL EXAM: VITAL SIGNS: Reviewed GENERAL: Well-developed in no acute distress. HEENT: No sclera icterus. Extraocular movements grossly intact. Moist buccal mucosa. Head is atraumatic, normocephalic. No nasal drainage. ABDOMEN: Soft. Distended. Tenderness with palpation of right upper quadrant NEUROLOGIC: Awake, alert and orientated to name and place. Has evidence of confusion LABORATORY DATA: WBC 23.8 down to 15.2 hemoglobin 11.3 platelets 307 INR 1.0 Sodium was 137 potassium is 4.4 creatinine 1.13 Total bilirubin 1.3 AST 79 down to 51 ALT 77 down to 62 alk phos 223 down to 201 Lipase 56 Urine drug screen negative COVID-19 not detected IMAGING: abdominal x-ray completed showing gas-filled and mildly dilated small bowel could be related to ileus or partial mechanical obstruction. Gallbladder ultrasound pending Computed tomography scan brain cerebral atrophy. No acute intracranial abnormality Chest x-ray cardiomegaly and probable changes could reflect edema or fibrosis. Correlate clinically. No significant change from recent x-ray ASSESSMENT: 1. Right upper quadrant abdominal pain with vomiting 2. Elevated LFTs 3. Abdominal distention and a questionable ileus or partial mechanical ob struction noted on abdominal x-ray PLAN: -Follow up on gallbladder ultrasound results -Check computed tomography scan of abdomen and pelvis with oral contrast for further evaluation of of patient's abdominal distention -Repeat LFTs in a.m. -Continue clear liquid diet -Continue IV fluids -Continue antibiotics Thank you for this consultation Physician Seedling Puller note has been reviewed by physician. Signing provider agrees with the documented findings, assessment, and plan of care. Past Medical History Past Medical History: Heart Failure, GERD/Reflux, Hyperlipidemia, Hypertension Additional Past Medical History / Comment(s): , AORTIC VALVE REPLACEMENT 10 YEARS AGO History of Any Multi-Drug Resistant Organisms: None Reported Past Surgical History: Cardiac Valve Replacement Past Anesthesia/Blood Transfusion Reactions: No Reported Reaction Past Psychological History: No Psychological Hx Reported Smoking Status: Never smoker Past Alcohol Use History: None Reported Past Drug Use History: None Reported - Past Family History Mother Family Medical History: Hypertension Medications and Allergies Home Medications Medication Instructions Recorded Confirmed Type Metoprolol Succinate (ER) [Toprol 25 mg PO DAILY@0900 02/07/21 02/25/21 History XL] Omeprazole 20 mg PO DAILY@0600 02/07/21 02/25/21 History PARoxetine HCL [Paxil] 40 mg PO DAILY@0900 02/07/21 02/25/21 History Simvastatin [Zocor] 40 mg PO HS@2100 02/07/21 02/25/21 History Ammonium Lactate Lotion 1 applic TOPICAL Q12H 02/25/21 02/25/21 History [Lac-Hydrin 12% Lotion] Bismuth Subsalicylate 524 mg PO Q4H PRN 02/25/21 02/25/21 History [Pepto-Bismol] Furosemide [Lasix] 20 mg PO BID@0600,1400 02/25/21 02/25/21 History Potassium Chloride ER [K-Dur 20] 20 meq PO DAILY@0900 02/25/21 02/25/21 History lisinopriL [Zestril] 5 mg PO BID@0900,2100 02/25/21 02/25/21 History Allergies Allergy/AdvReac Type Severity Reaction Status Date / Time No Known Allergies Allergy Verified 02/25/21 16:55 Surgical - Exam Vital Signs Temp Pulse Resp BP Pulse Ox 97.3 F L 79 20 135/90 93 L 02/25/21 15:28 02/25/21 15:28 02/25/21 15:28 02/25/21 15:28 02/25/21 15:28 Results - Labs 02/26/21 07:59 02/26/21 07:59 Abnormal Lab Results - Last 24 Hours (Table) 02/25/21 02/25/21 02/25/21 Range/Units 16:06 16:06 17:10 WBC 23.8 H (3.8-10.6) k/uL Hgb 11.3 L (11.4-16.0) gm/dL Neutrophils # 21.8 H (1.3-7.7) k/uL Lymphocytes # 0.9 L (1.0-4.8) k/uL APTT 18.6 L (22.0-30.0) sec Sodium 134 L (137-145) mmol/L Chloride 97 L (98-107) mmol/L BUN 66 H (7-17) mg/dL Creatinine 1.24 H (0.52-1.04) mg/dL Glucose 138 H (74-99) mg/dL AST 79 H (14-36) U/L ALT 77 H (4-34) U/L Alkaline Phosphatase 223 H (38-126) U/L Total Protein 5.9 L (6.3-8.2) g/dL Albumin 2.9 L (3.5-5.0) g/dL Urine Appearance (Clear) Urine Blood (Negative) Amorphous Sediment (None) /hpf Hyaline Casts (0-2) /lpf Urine Mucus (None) /hpf 02/25/21 02/26/21 02/26/21 Range/Units 17:11 07:59 07:59 WBC 15.2 H (3.8-10.6) k/uL Hgb 11.3 L (11.4-16.0) gm/dL Neutrophils # 12.7 H (1.3-7.7) k/uL Lymphocytes # (1.0-4.8) k/uL APTT (22.0-30.0) sec Sodium (137-145) mmol/L Chloride (98-107) mmol/L BUN 60 H (7-17) mg/dL Creatinine 1.13 H (0.52-1.04) mg/dL Glucose 114 H (74-99) mg/dL AST 51 H (14-36) U/L ALT 62 H (4-34) U/L Alkaline Phosphatase 201 H (38-126) U/L Total Protein 5.8 L (6.3-8.2) g/dL Albumin 2.7 L (3.5-5.0) g/dL Urine Appearance Cloudy H (Clear) Urine Blood Trace H (Negative) Amorphous Sediment Rare H (None) /hpf Hyaline Casts 54 H (0-2) /lpf Urine Mucus Occasional H (None) /hpf Diabetes panel 02/25/21 02/26/21 Range/Units 16:06 07:59 Sodium 134 L 137 (137-145) mmol/L Potassium 4.8 4.4 (3.5-5.1) mmol/L Chloride 97 L 104 (98-107) mmol/L Carbon Dioxide 25 23 (22-30) mmol/L BUN 66 H 60 H (7-17) mg/dL Creatinine 1.24 H 1.13 H (0.52-1.04) mg/dL Glucose 138 H 114 H (74-99) mg/dL Calcium 9.2 9.2 (8.4-10.2) mg/dL AST 79 H 51 H (14-36) U/L ALT 77 H 62 H (4-34) U/L Alkaline Phosphatase 223 H 201 H (38-126) U/L Total Protein 5.9 L 5.8 L (6.3-8.2) g/dL Albumin 2.9 L 2.7 L (3.5-5.0) g/dL Calcium panel 02/25/21 02/26/21 Range/Units 16:06 07:59 Calcium 9.2 9.2 (8.4-10.2) mg/dL Albumin 2.9 L 2.7 L (3.5-5.0) g/dL Pituitary panel 02/25/21 02/26/21 Range/Units 16:06 07:59 Sodium 134 L 137 (137-145) mmol/L Potassium 4.8 4.4 (3.5-5.1) mmol/L Chloride 97 L 104 (98-107) mmol/L Carbon Dioxide 25 23 (22-30) mmol/L BUN 66 H 60 H (7-17) mg/dL Creatinine 1.24 H 1.13 H (0.52-1.04) mg/dL Glucose 138 H 114 H (74-99) mg/dL Calcium 9.2 9.2 (8.4-10.2) mg/dL Adrenal panel 02/25/21 02/26/21 Range/Units 16:06 07:59 Sodium 134 L 137 (137-145) mmol/L Potassium 4.8 4.4 (3.5-5.1) mmol/L Chloride 97 L 104 (98-107) mmol/L Carbon Dioxide 25 23 (22-30) mmol/L BUN 66 H 60 H (7-17) mg/dL Creatinine 1.24 H 1.13 H (0.52-1.04) mg/dL Glucose 138 H 114 H (74-99) mg/dL Calcium 9.2 9.2 (8.4-10.2) mg/dL Total Bilirubin 1.1 1.3 (0.2-1.3) mg/dL AST 79 H 51 H (14-36) U/L ALT 77 H 62 H (4-34) U/L Alkaline Phosphatase 223 H 201 H (38-126) U/L Total Protein 5.9 L 5.8 L (6.3-8.2) g/dL Albumin 2.9 L 2.7 L (3.5-5.0) g/dL <Juve Phan - Last Filed: 02/26/21 17:28> History of Present Illness History of present illness: I have personally seen and examined the patient, reviewed the [employer] /PAs history, exam and MDM and agree with the assessment and plan as written. Based on total visit time, I have performed more than 50% of the visit. As above. Patient's ultrasound, x-rays, and recent CAT scan reviewed. Suspect acute calculus cholecystitis. Continue broad-spectrum antibiotics. Patient's CAT scan suggests likely ileus as well which is likely related to her calculus cholecystitis. Repeat labs tomorrow. Underlying choledocholithiasis/cholangitis not excluded. Will tentatively plan laparoscopic cholecystectomy, possible open cholecystectomy in the next 24-40 hours. Risks of bleeding, infection, bile leak, bile duct injury, retained common bile duct stone, trocar injury, conversion to an open procedure, hernia, anesthesia related complications were reviewed. The patient understands and wishes to proceed. Surgical - Exam Vital Signs Temp Pulse Resp BP Pulse Ox 97.3 F L 79 20 135/90 93 L 02/25/21 15:28 02/25/21 15:28 02/25/21 15:28 02/25/21 15:28 02/25/21 15:28 Results - Labs 02/26/21 07:59 02/26/21 07:59 Abnormal Lab Results - Last 24 Hours (Table) 02/25/21 02/26/21 02/26/21 Range/Units 17:10 07:59 07:59 WBC 15.2 H (3.8-10.6) k/uL Hgb 11.3 L (11.4-16.0) gm/dL Neutrophils # 12.7 H (1.3-7.7) k/uL APTT 18.6 L (22.0-30.0) sec BUN 60 H (7-17) mg/dL Creatinine 1.13 H (0.52-1.04) mg/dL Glucose 114 H (74-99) mg/dL AST 51 H (14-36) U/L ALT 62 H (4-34) U/L Alkaline Phosphatase 201 H (38-126) U/L Total Protein 5.8 L (6.3-8.2) g/dL Albumin 2.7 L (3.5-5.0) g/dL Diabetes panel 02/26/21 Range/Units 07:59 Sodium 137 (137-145) mmol/L Potassium 4.4 (3.5-5.1) mmol/L Chloride 104 (98-107) mmol/L Carbon Dioxide 23 (22-30) mmol/L BUN 60 H (7-17) mg/dL Creatinine 1.13 H (0.52-1.04) mg/dL Glucose 114 H (74-99) mg/dL Calcium 9.2 (8.4-10.2) mg/dL AST 51 H (14-36) U/L ALT 62 H (4-34) U/L Alkaline Phosphatase 201 H (38-126) U/L Total Protein 5.8 L (6.3-8.2) g/dL Albumin 2.7 L (3.5-5.0) g/dL Calcium panel 02/26/21 Range/Units 07:59 Calcium 9.2 (8.4-10.2) mg/dL Albumin 2.7 L (3.5-5.0) g/dL Pituitary panel 02/26/21 Range/Units 07:59 Sodium 137 (137-145) mmol/L Potassium 4.4 (3.5-5.1) mmol/L Chloride 104 (98-107) mmol/L Carbon Dioxide 23 (22-30) mmol/L BUN 60 H (7-17) mg/dL Creatinine 1.13 H (0.52-1.04) mg/dL Glucose 114 H (74-99) mg/dL Calcium 9.2 (8.4-10.2) mg/dL Adrenal panel 02/26/21 Range/Units 07:59 Sodium 137 (137-145) mmol/L Potassium 4.4 (3.5-5.1) mmol/L Chloride 104 (98-107) mmol/L Carbon Dioxide 23 (22-30) mmol/L BUN 60 H (7-17) mg/dL Creatinine 1.13 H (0.52-1.04) mg/dL Glucose 114 H (74-99) mg/dL Calcium 9.2 (8.4-10.2) mg/dL Total Bilirubin 1.3 (0.2-1.3) mg/dL AST 51 H (14-36) U/L ALT 62 H (4-34) U/L Alkaline Phosphatase 201 H (38-126) U/L Total Protein 5.8 L (6.3-8.2) g/dL Albumin 2.7 L (3.5-5.0) g/dL
--- NOTE | 2021-02-26 12:14 | P.HPIM ---
History of Present Illness H&P Date: 02/26/21 Chief Complaint: Nausea vomiting This is an 86-year-old female patient of Dr. Valerio who presents to the ER with concerns of dehydration and vomiting. Patient has been residing at [facility] since recent hospitalization. Patient does have intermittent confusion and appears to be a poor historian. According to the ER record patient was initially transferred with concerns of altered mental status changes. According to ER record when family presented mental status changes were stated as chronic but really does express concern that patient had poor oral intake and persistent vomiting. Patient was recently admitted for CHF exacerbation. Additional medical history includes essential hypertension, hyperlipidemia and aortic valve replacement. Head CT was completed showing cerebral atrophy. No acute intracranial abnormality. Chest x-ray also completed showing cardiomegaly and parenchymal changes could reflect edema fibrosis correlate clinically significant change from recent x-ray. Abdominal x-ray completed showing gas- filled and mildly dilated small bowel could relate to ileus or partial mechanical obstruction small right pleural effusion. Patient also noted to have significant liver enzymes. He still appeared to be trending down amylase and lipase within normal limits. Creatinine slightly elevated at 1.24 and bun 66. Patient also having elevated at 23.8. This time will order ultrasound of gallbladder. Patient maintained on clear liquid diet. Surgical services also consulted for possible obstruction. Patient's abdomen distended but soft. Pat ient denies any nausea or vomiting at this time. Patient denies chest pain or shortness breath. Patient denies any urinary burning or frequency Review of Systems please refer to HPI otherwise unremarkable Past Medical History Past Medical History: Heart Failure, GERD/Reflux, Hyperlipidemia, Hypertension Additional Past Medical History / Comment(s): , AORTIC VALVE REPLACEMENT 10 YEARS AGO History of Any Multi-Drug Resistant Organisms: None Reported Past Surgical History: Cardiac Valve Replacement Past Anesthesia/Blood Transfusion Reactions: No Reported Reaction Past Psychological History: No Psychological Hx Reported Smoking Status: Never smoker Past Alcohol Use History: None Reported Past Drug Use History: None Reported - Past Family History Mother Family Medical History: Hypertension Medications and Allergies Home Medications Medication Instructions Recorded Confirmed Type RX: Metoprolol Succinate (ER) 25 mg PO DAILY@0900 02/07/21 02/25/21 History [Toprol XL] RX: Omeprazole 20 mg PO DAILY@0600 02/07/21 02/25/21 History RX: PARoxetine HCL [Paxil] 40 mg PO DAILY@0900 02/07/21 02/25/21 History RX: Simvastatin [Zocor] 40 mg PO HS@2100 02/07/21 02/25/21 History Ammonium Lactate Lotion 1 applic TOPICAL Q12H 02/25/21 02/25/21 History [Lac-Hydrin 12% Lotion] Bismuth Subsalicylate 524 mg PO Q4H PRN 02/25/21 02/25/21 History [Pepto-Bismol] RX: Furosemide [Lasix] 20 mg PO BID@0600,1400 02/25/21 02/25/21 History RX: Potassium Chloride ER [K-Dur 20 meq PO DAILY@0900 02/25/21 02/25/21 History 20] RX: lisinopriL [Zestril] 5 mg PO BID@0900,2100 02/25/21 02/25/21 History Allergies Allergy/AdvReac Type Severity Reaction Status Date / Time No Known Allergies Allergy Verified 02/25/21 16:55 Physical Exam Vitals: Vital Signs Temp Pulse Pulse Resp BP BP Pulse Ox 02/26/21 05:32 97.6 F 88 18 121/73 93 L 02/25/21 22:00 97.6 F 62 18 136/54 99 02/25/21 20:00 18 02/25/21 15:28 97.3 F L 79 20 135/90 93 L Intake and Output 02/25/21 02/26/21 02/26/21 22:59 06:59 14:59 Intake Total 250 Balance 250 Intake: Intake, IV Titration 250 Amount Sodium Chloride 0.9% 1, 250 000 ml @ 130 mls/hr IV . Q7H42M [facility] Rx#:[id number] Other: Voiding Method Diaper Weight 68.039 kg Head normocephalic Neck supple Lungs clear to auscultation bilaterally no wheezing or crackles Heart regular rate and rhythm S1-S2, no rub or gallop Abdomen is distended but soft. Hypoactive bowel sounds Extremities no edema Neuro alert and orientated to 3 Results CBC & Chem 7: 02/26/21 07:59 02/26/21 07:59 Labs: Abnormal Lab Results - Last 24 Hours (Table) 02/25/21 02/25/21 02/25/21 Range/Units 16:06 16:06 17:10 WBC 23.8 H (3.8-10.6) k/uL Hgb 11.3 L (11.4-16.0) gm/dL Neutrophils # 21.8 H (1.3-7.7) k/uL Lymphocytes # 0.9 L (1.0-4.8) k/uL APTT 18.6 L (22.0-30.0) sec Sodium 134 L (137-145) mmol/L Chloride 97 L (98-107) mmol/L BUN 66 H (7-17) mg/dL Creatinine 1.24 H (0.52-1.04) mg/dL Glucose 138 H (74-99) mg/dL AST 79 H (14-36) U/L ALT 77 H (4-34) U/L Alkaline Phosphatase 223 H (38-126) U/L Total Protein 5.9 L (6.3-8.2) g/dL Albumin 2.9 L (3.5-5.0) g/dL Urine Appearance (Clear) Urine Blood (Negative) Amorphous Sediment (None) /hpf Hyaline Casts (0-2) /lpf Urine Mucus (None) /hpf 02/25/21 02/26/21 02/26/21 Range/Units 17:11 07:59 07:59 WBC 15.2 H (3.8-10.6) k/uL Hgb 11.3 L (11.4-16.0) gm/dL Neutrophils # 12.7 H (1.3-7.7) k/uL Lymphocytes # (1.0-4.8) k/uL APTT (22.0-30.0) sec Sodium (137-145) mmol/L Chloride (98-107) mmol/L BUN 60 H (7-17) mg/dL Creatinine 1.13 H (0.52-1.04) mg/dL Glucose 114 H (74-99) mg/dL AST 51 H (14-36) U/L ALT 62 H (4-34) U/L Alkaline Phosphatase 201 H (38-126) U/L Total Protein 5.8 L (6.3-8.2) g/dL Albumin 2.7 L (3.5-5.0) g/dL Urine Appearance Cloudy H (Clear) Urine Blood Trace H (Negative) Amorphous Sediment Rare H (None) /hpf Hyaline Casts 54 H (0-2) /lpf Urine Mucus Occasional H (None) /hpf Thrombosis Risk Factor Assmnt - Choose All That Apply Each Factor Represents 1 point: Obesity (BMI >25) Each Risk Factor Represents 3 Points: Age 75 years or older Thrombosis Risk Factor Assessment Total Risk Factor Score: 4 Thrombosis Risk Factor Assessment Level: Moderate Risk Assessment and Plan Assessment: 1. Nausea and vomiting. 2. Possible bowel obstruction. Surgical services have been consulted 3. Elevated liver enzymes. Gallbladder ultrasound ordered. Patient maintained clear liquid diet 4. History of diastolic CHF. No exacerbation at this time 5. Essential hypertension 6. History of hyperlipidemia 7. History of aortic valve replacement with a 10 years ago. There is evidence of severe aortic stenosis at this time the patient will follow up with cardiology to decide whether she wants to proceed with further intervention DVT prophylaxis Lovenox. GI prophylaxis Protonix Patient maintained on IV Rocephin Ultrasound of gallbladder ordered Blood culture and repeat labs ordered Surgical service is consulted Time with Patient: Greater than 30 (Greater than 60% of the total time spent in counseling and coordination of care)
[2021-02-26] MEDS: IOPAMIDOL CONTRAST (ORAL USE) VIAL PO PRN ×2 (12:35→13:46)
--- NOTE | 2021-02-26 13:47 | US ---
EXAMINATION TYPE: US gallbladder DATE OF EXAM: 02/26/2021 COMPARISON: NONE CLINICAL HISTORY: 86-year-old female elevated liver enzymes. N/v. TECHNIQUE: Multiple sonographic images of the right upper quadrant are obtained. FINDINGS: EXAM MEASUREMENTS: Liver Length: 12.1 cm Gallbladder Wall: 0.6 cm CBD: 0.5 cm Right Kidney: 9.2 x 5.5 x 4.0 cm Presser Hand note: Patient altered mental status, immobile, limited exam Pancreas: Obscured by bowel gas Liver: Left lobe obscured by overlying bowel gas, limited views of right lobe show no gross abnormal ity Gallbladder: Distended, thickened, irregular wall, probable sludge and gallstones near the neck. Aristides e septation noted within the lumen Evidence for sonographic Alarcon's sign: No CBD: wnl Right Kidney: wnl IMPRESSION: 1. Distended and thickened gallbladder with sludge and small calculi. Given the negative sonographic Alarcon sign, consider chronic cholecystitis. Acute cholecystitis is possible if the patient received pain medication. If no surgical intervention and further imaging evaluation is desired, HIDA scan can be considered. 2. No no biliary ductal dilatation. 3. Overall limited exam due to altered mental status and patient immobility.
--- NOTE | 2021-02-26 14:39 | CT ---
EXAMINATION TYPE: CT abdomen pelvis wo con DATE OF EXAM: 02/26/2021 COMPARISON: None INDICATION: abdominal pain DLP: 996 mGycm, Automated exposure control for dose reduction was used. CONTRAST: 0 mL of Isovue 300. Study performed with Oral Contrast TECHNIQUE: Axial images were obtained from above the diaphragm to the pubic rami in the axial plane a t 5 mm thick sections. Reconstructed images are reviewed on the computer in the coronal plane. FINDINGS: Limited CT sections are obtained the lung bases. There is some dependent linear opacity likely on th e basis of atelectasis. Vascular calcification within the coronary vessels is evident. CT ABDOMEN:. CT ABDOMEN: Liver: Hepatic cyst may be within the medial right lobe liver Spleen: Normal Pancreas: Normal Adrenal glands: The adrenal glands are normal. Gallbladder: Distended. A couple of small gallstones may be at the gallbladder neck. Kidneys: No masses are evident. No hydronephrosis is present. No cysts are present. Vascular calci fications within the left kidney. No renal stones are identified. Aorta: Vascular calcification is within the aorta. Inferior vena cava: Normal. CT PELVIS: There are prominent small bowel loops within the abdomen. These are both air-filled and fluid-filled. No suspicious changes suggest obstruction are identified. Fluid is within the proximal ascending col on. Distal colon is decompressed. Correlate for ileus. No suspicious zone of transition is evident. F indings appear more suggestive for ileus or gastroenteritis. Appendix: Not identified. No dilated tubular structure inflammatory changes evident. Urinary bladder: Normal. Genitourinary structures: Uterus and adnexa appear normal. 3.1 cm Right ovarian cyst is not excluded. Osseous structures: No suspicious lytic or sclerotic lesions. Degenerative disc changes and spondylos is through the lumbar spine. A few vacuum disc phenomenon levels in the upper lumbar spine are noted. IMPRESSIONS: 1. Mild dependent lung base atelectasis. 2. Prominent air fluid filled small bowel loops without a zone of transition. Findings are suggestive for mild ileus or gastroenteritis. Follow-up can be performed. 3. Cholelithiasis with a distended gallbladder. Correlate with patient's symptoms.
[2021-02-27] MEDS: SODIUM CHLORIDE 0.9% 1,000 ML IV SCH ×3 (05:52→17:23)
[2021-02-27 07:15] LABS: Basophils % (A) 0 %; Eosinophils # (A) 0.3 k/uL (0-0.7); Eosinophils % (A) 3 %; HCT 34.6 % (34.0-46.0); HGB 10.5 gm/dL (11.4-16.0); Hypochromasia Slight; Lymphocytes % (A) 9 %; MCH 28.3 pg (25.0-35.0); MCHC 30.2 g/dL (31.0-37.0); MCV 93.8 fL (80.0-100.0); Mean Platelet Volume 8.9; Monocytes # (A) 0.6 k/uL (0-1.0); Monocytes % (A) 6 %; Neutrophils # (A) 8.6 k/uL (1.3-7.7); Neutrophils % (A) 81 %; Platelet Count 294 k/uL (150-450); RBC 3.69 m/uL (3.80-5.40); RDW 14.2 % (11.5-15.5); WBC 10.6 k/uL (3.8-10.6)
[2021-02-27 07:36] LABS: Albumin 2.4 g/dL (3.5-5.0); Calcium 8.9 mg/dL (8.4-10.2); Potassium 4.7 mmol/L (3.5-5.1); Total Bilirubin 0.6 mg/dL (0.2-1.3); Total Protein 5.1 g/dL (6.3-8.2)
[2021-02-27] MEDS: lisinopriL 5 MG TAB PO SCH ×2 (08:02→20:49)
[2021-02-27] MEDS: ENOXAPARIN 40 MG/0.4 ML SYRINGE SQ SCH (08:02)
[2021-02-27] MEDS: PARoxetine 20 MG TAB PO SCH (08:03)
[2021-02-27] MEDS: PANTOPRAZOLE 40 MG/10 ML VIAL IV SCH (08:07)
[2021-02-27] MEDS: METOPROLOL SUCCINATE (ER) 25 MG TAB.ER.24H PO SCH (08:08)
--- NOTE | 2021-02-27 12:59 | P.PN ---
Subjective Progress Note Date: 02/27/21 Nitza Arteaga, is an 86-year-old female patient of Dr. Valerio who presents to the ER with concerns of dehydration and vomiting. Patient has been residing at [facility] since recent hospitalization. Patient does have intermittent confusion and appears to be a poor historian. According to the ER record patient was initially transferred with concerns of altered mental status changes. According to ER record when family presented mental status changes were stated as chronic but really does express concern that patient had poor oral intake and persistent vomiting. Patient was recently admitted for CHF exacerbation. Additional medical history includes essential hypertension, hyperlipidemia and aortic valve replacement. Head CT was completed showing cerebral atrophy. No acute intracranial abnormality. Chest x-ray also completed showing cardiomegaly and parenchymal changes could reflect edema fibrosis correlate clinically significant change from recent x-ray. Abdominal x-ray completed showing gas- filled and mildly dilated small bowel could relate to ileus or partial mechanical obstruction small right pleural effusion. Patient also noted to have significant liver enzymes. He still appeared to be trending down amylase and lipase within normal limits. Creatinine slightly elevated at 1.24 and bun 66. Patient also having elevated at 23.8. This time will order ultrasound of gallbladder. Patient maintained on clear liquid diet. Surgical services also consulted for possible obstruction. Patient's abdomen distended but soft. Patient denies any nausea or vomiting at this time. Patient denies chest pain or shortness breath. Patient denies any urinary burning or frequency On 02/27/2021 patient was seen and examined on the medical floor she is alert, confused in no apparent distress, she denies any chest pain or shortness of breath, she has a known history of aortic stenosis, for which she had aortic valve replacement several years ago, she developed stenosis again in the aortic valve, which was severe on echocardiogram done last month, patient declined repeat surgery in the past . ejection fraction was normal at 55-60%, echocardiogram yesterday was normal , patient denies ever having any coronary artery disease or myocardial infarction. There is no medical contraindication for gallbladder surgery, however patient is at increased risk due to severe aortic stenosis. On review of systems there is no fever or chills no headache or dizziness no chest pain no shortness of breath no cough no nausea or vomiting no abdominal pain at this time and no urinary symptoms Objective - Vital Signs Vital signs: Vital Signs Temp 98.1 F 02/27/21 07:49 Pulse 71 02/27/21 07:49 Resp 18 02/27/21 07:49 BP 129/78 02/27/21 07:49 Pulse Ox 94 L 02/27/21 07:49 Intake & Output 02/26/21 02/27/21 02/27/21 18:59 06:59 18:59 Intake Total 1610 Balance 1610 Intake: Intake, IV Titration 1610 Amount Sodium Chloride 0.9% 1, 1560 000 ml @ 130 mls/hr IV . Q7H42M [facility] Rx#:[id number] cefTRIAXone 1 gm In 50 Sodium Chloride 0.9% 50 ml @ 100 mls/hr IVPB Q12HR [facility] Rx#:[id number] Other: Voiding Method Diaper Diaper Diaper Incontinent Incontinent Incontinent # Voids 2 # Bowel Movements 1 - Exam In general patient is alert and oriented ?-3 in no distress HEENT head normocephalic and atraumatic Neck is supple no JVD no goiter no lymphadenopathy no carotid bruit Chest examination is clear to auscultation no crackles no wheezing Cardiac exam reveals regular heart sounds S1 and S2 no gallops no murmurs Abdomen is soft slightly distended no organomegaly no palpable masses there is minimal tenderness in the right upper quadrant area normal bowel sounds Extremity exam reveals no edema no cyanosis or clubbing Neurological examination reveals no gross focal deficits - Labs CBC & Chem 7: 02/27/21 06:38 02/27/21 06:38 Labs: Abnormal Lab Results - Last 24 Hours (Table) 02/27/21 02/27/21 Range/Units 06:38 06:38 RBC 3.69 L (3.80-5.40) m/uL Hgb 10.5 L (11.4-16.0) gm/dL MCHC 30.2 L (31.0-37.0) g/dL Neutrophils # 8.6 H (1.3-7.7) k/uL Chloride 110 H (98-107) mmol/L BUN 37 H (7-17) mg/dL Glucose 112 H (74-99) mg/dL ALT 43 H (4-34) U/L Alkaline Phosphatase 167 H (38-126) U/L Total Protein 5.1 L (6.3-8.2) g/dL Albumin 2.4 L (3.5-5.0) g/dL Assessment and Plan Assessment: 1. Nausea and vomiting. Patient was evaluated by surgery 2. Possible bowel obstruction. Surgical services have been consulted 3. Elevated liver enzymes. Gallbladder ultrasound ordered. Plan is for cholecystectomy today 4. History of diastolic CHF. No exacerbation at this time 5. Essential hypertension 6. History of hyperlipidemia 7. History of aortic valve replacement with a 10 years ago. There is evidence of severe aortic stenosis at this time the patient will follow up with adrian espinosa to decide whether she wants to proceed with further intervention DVT prophylaxis Lovenox. GI prophylaxis Protonix Patient maintained on IV Rocephin Ultrasound of gallbladder ordered Blood culture and repeat labs ordered Surgical service is consulted
[2021-02-27] MEDS ORDERED: IV FLUID CONTINUATION 800 ML IV ONE (13:23)
[2021-02-27] MEDS: ONDANSETRON 4 MG/2 ML VIAL IVP PRN (13:47)
[2021-02-27] MEDS ORDERED: HEPARIN SODIUM,PORCINE/PF 5,000 UNIT/0.5 ML SYRINGE SQ ONE (13:55)
[2021-02-27] MEDS ORDERED: HEPARIN SODIUM,PORCINE 5,000 UNIT/ML 1 ML VIAL SQ ONE (13:58)
[2021-02-27] MEDS ORDERED: LIDOCAINE 1% INJ 10MG/ML (20 ML MDV) ONE (14:07)
[2021-02-27] MEDS ORDERED: HYDROmorphone (PF) 1 MG/ML ONE (14:07)
[2021-02-27] MEDS ORDERED: PROPOFOL 10 MG/ML 20 ML VIAL IV ONE (14:07)
[2021-02-27] MEDS ORDERED: ROCURONIUM 10 MG/ML (5 ML VIAL) IV ONE (14:07)
[2021-02-27] MEDS ORDERED: fentaNYL (PF) 50 MCG/ML 2 ML AMP ONE (14:07)
[2021-02-27] MEDS ORDERED: SUCCINYLCHOLINE CHLORIDE 100 MG/5 ML SYR IV ONE (14:07)
[2021-02-27] MEDS ORDERED: GLYCOPYRROLATE 0.2 MG/ML 2 ML VIAL ONE (14:07)
[2021-02-27] MEDS ORDERED: BUPIVACAIN-EPI 0.25%-1:200,000 30 ML VIAL IJ ONE (14:17)
[2021-02-27] MEDS ORDERED: LACTATED RINGERS 1,000 ML IV ONE (16:02)
[2021-02-27] MEDS ORDERED: traMADol 50 MG TAB PO PRN (16:18)
[2021-02-27] MEDS ORDERED: IBUPROFEN 600 MG TAB PO PRN (16:18)
[2021-02-27] MEDS ORDERED: HYDROmorphone 1 MG/ML 1 ML SYRINGE IVP PRN (16:18)
[2021-02-27] MEDS: HYDROmorphone 0.5 MG/0.5 ML SYRINGE IVP ONE ×3 (16:24→16:48)
--- NOTE | 2021-02-27 16:24 | P.OP ---
Date of Procedure: 02/27/21 Procedure(s) Performed: PREOPERATIVE DIAGNOSIS: Acute cholecystitis POSTOPERATIVE DIAGNOSIS: Acute gangrenous cholecystitis with perforation PROCEDURE: Diagnostic laparoscopy with conversion to open cholecystectomy SURGEON: Sylvestre EBL: Minimal see anesthesia record ANESTHESIA: Gen. COMPLICATIONS: None OPERATIVE PROCEDURE: The patient was brought and placed on the operating room table in the supine position. The patient was placed under general anesthesia at that time. The abdomen was prepped and draped in the usual sterile fashion. A small incision was made in the right upper quadrant. Optical trocar was used to enter the peritoneal cavity. Insufflation took place to 15 mmHg. Additional 5 mm trocar placed in the umbilicus. Camera was inserted through that location. A 12 mm trocar was advanced into the epigastric incision site. Additional 5 mm trocar placed laterally in the right upper quadrant. There were adhesions between the abdominal wall at the costal margin in the liver. Blunt dissection took place revealing a contained perforation of the gallbladder beneath the omentum. I was able to visualize the dome of the gallbladder which was completely necrotic. The area was evacuated of bilious purulent fluid. A few small stones were seen. Attempts at dissecting the gallbladder away from the adherent transverse colon mesentery were unsuccessful given the degree of inflammation and friability of the gallbladder. At that point I converted to an open approach. The pneumoperitoneum was evacuated. An incision was made between our lateral 5 mm trocar site and the 12 mm trocar site. The Bookwalter retractor was utilized. The gallbladder was bluntly dissected away from the adhesions circumferentially. The gallbladder was removed from the top down by removing the posterior wall the gallbladder from the liver using both electrocautery and blunt dissection. Once we reached the infundibulum careful dissection took place using blunt dissection and the right angle. Small vessels were ligated using clips. Once we reached the cystic duct region we could see what appeared to represent the junction with the common bile duct and common hepatic duct. It was somewhat thickened from the inflammatory changes present. I did not feel comfortable dissecting further along the cystic duct as I felt that we were likely very close to the junction. This cystic duct was then ligated using 2 separate 0 silk sutures. The specimen was passed off at this point. The area was thoroughly irrigated. No bleeding was seen. A drain was placed in the gallbladder fossa exiting from the lateral right upper quadrant region. The abdominal wall fascia was closed in 2 layers using running double- stranded #1 PDS sutures. A drain was placed anterior to the fascial closure exiting through our medial 5 mm trocar site. Both drains were sutured to the skin using a 3-0 silk stitch. The skin was then reapproximated using cristian. Sterile dressings applied. At the end of this procedure the sponge and needle counts were correct. DISPOSITION: Stable to the recovery room
[2021-02-27] MEDS: HYDROcodone/APAP 5-325MG 1 EACH TAB PO PRN (20:49)
[2021-02-28] MEDS: SODIUM CHLORIDE 0.9% 1,000 ML IV SCH ×4 (05:52→19:23)
[2021-02-28] MEDS: PANTOPRAZOLE 40 MG/10 ML VIAL IV SCH (09:06)
[2021-02-28] MEDS: PARoxetine 20 MG TAB PO SCH (09:07)
[2021-02-28] MEDS: lisinopriL 5 MG TAB PO SCH ×2 (09:07→20:36)
[2021-02-28] MEDS: METOPROLOL SUCCINATE (ER) 25 MG TAB.ER.24H PO SCH (09:07)
[2021-02-28] MEDS: ENOXAPARIN 40 MG/0.4 ML SYRINGE SQ SCH (09:07)
[2021-02-28 09:09] LABS: Basophils % (A) 0 %; Eosinophils % (A) 0 %; HCT 35.8 % (34.0-46.0); HGB 11.1 gm/dL (11.4-16.0); Hypochromasia Moderate; Lymphocytes # (A) 0.8 k/uL (1.0-4.8); Lymphocytes % (A) 6 %; MCH 29.2 pg (25.0-35.0); MCHC 30.9 g/dL (31.0-37.0); MCV 94.4 fL (80.0-100.0); Mean Platelet Volume 8.6; Monocytes # (A) 0.6 k/uL (0-1.0); Monocytes % (A) 4 %; Neutrophils # (A) 11.6 k/uL (1.3-7.7); Neutrophils % (A) 89 %; Platelet Count 274 k/uL (150-450); RDW 14.7 % (11.5-15.5); WBC 13.1 k/uL (3.8-10.6)
[2021-02-28 09:23] LABS: ALT 39 U/L (4-34); AST 47 U/L (14-36); African American GFR (CKD) 84 (>60 ml/min/1.73 sqM); Albumin 2.4 g/dL (3.5-5.0); Albumin/Globulin Ratio 0.9; Alkaline Phosphatase 138 U/L (38-126); Anion Gap 4 mmol/L; Blood Urea Nitrogen 22 mg/dL (7-17); Calcium 8.7 mg/dL (8.4-10.2); Carbon Dioxide 23 mmol/L (22-30); Chloride 113 mmol/L (98-107); Globulin 2.7 g/dL; Glucose 143 mg/dL (74-99); Non-African American GFR(CKD) 73 (>60 ml/min/1.73 sqM); Potassium 4.3 mmol/L (3.5-5.1); Sodium 140 mmol/L (137-145); Total Bilirubin 0.6 mg/dL (0.2-1.3); Total Protein 5.1 g/dL (6.3-8.2)
--- NOTE | 2021-02-28 09:56 | P.PN ---
Subjective Progress Note Date: 02/28/21 Nitza Arteaga, is an 86-year-old female patient of Dr. Valerio who presents to the ER with concerns of dehydration and vomiting. Patient has been residing at [facility] since recent hospitalization. Patient does have intermittent confusion and appears to be a poor historian. According to the ER record patient was initially transferred with concerns of altered mental status changes. According to ER record when family presented mental status changes were stated as chronic but really does express concern that patient had poor oral intake and persistent vomiting. Patient was recently admitted for CHF exacerbation. Additional medical history includes essential hypertension, hyperlipidemia and aortic valve replacement. Head CT was completed showing cerebral atrophy. No acute intracranial abnormality. Chest x-ray also completed showing cardiomegaly and parenchymal changes could reflect edema fibrosis correlate clinically significant change from recent x-ray. Abdominal x-ray completed showing gas- filled and mildly dilated small bowel could relate to ileus or partial mechanical obstruction small right pleural effusion. Patient also noted to have significant liver enzymes. He still appeared to be trending down amylase and lipase within normal limits. Creatinine slightly elevated at 1.24 and bun 66. Patient also having elevated at 23.8. This time will order ultrasound of gallbladder. Patient maintained on clear liquid diet. Surgical services also consulted for possible obstruction. Patient's abdomen distended but soft. Patient denies any nausea or vomiting at this time. Patient denies chest pain or shortness breath. Patient denies any urinary burning or frequency On 02/27/2021 patient was seen and examined on the medical floor she is alert, confused in no apparent distress, she denies any chest pain or shortness of breath, she has a known history of aortic stenosis, for which she had aortic valve replacement several years ago, she developed stenosis again in the aortic valve, which was severe on echocardiogram done last month, patient declined repeat surgery in the past . ejection fraction was normal at 55-60%, echocardiogram yesterday was normal , patient denies ever having any coronary artery disease or myocardial infarction. There is no medical contraindication for gallbladder surgery, however patient is at increased risk due to severe aortic stenosis. On review of systems there is no fever or chills no headache or dizziness no chest pain no shortness of breath no cough no nausea or vomiting no abdominal pain at this time and no urinary symptoms On 02/28/2021 patient is alert and oriented with intermittent episodes of confusion. Patient underwent open cholecystectomy yesterday with Dr. mckinnon. Patient currently has 2 KATERIN drains surgical site dressing is clean dry and intact. Patient remains on clear liquid diet. Patient remains on IV Rocephin. Patient denies chest pain or shortness of breath. Patient denies nausea vomiting or diarrhea. Patient denies any urinary burning or frequency Objective - Vital Signs Vital signs: Vital Signs Temp 98.5 F 02/28/21 04:47 Pulse 73 02/28/21 09:20 Resp 16 02/28/21 04:47 BP 156/69 02/28/21 09:20 Pulse Ox 100 02/28/21 09:20 Intake & Output 02/27/21 02/28/21 02/28/21 18:59 06:59 18:59 Intake Total 1000 1040 Output Total 50 70 Balance 950 970 Intake: IV 1000 Intake, IV Titration 1040 Amount Sodium Chloride 0.9% 1, 1040 000 ml @ 130 mls/hr IV . Q7H42M [facility] Rx#:[id number] Output: Drainage 70 Medial Abdomen 60 Right Abdomen 10 Estimated Blood Loss 50 Other: Voiding Method Incontinent Incontinent Toilet Diaper Incontinent # Voids 0 0 # Bowel Movements 1 - Exam In general patient is alert and oriented ?-3 in no distress HEENT head normocephalic and atraumatic Neck is supple no JVD no goiter no lymphadenopathy no carotid bruit Chest examination is clear to auscultation no crackles no wheezing Cardiac exam reveals regular heart sounds S1 and S2 no gallops no murmurs Abdomen is soft slightly distended no organomegaly no palpable masses there is minimal tenderness in the right upper quadrant area normal bowel sounds Extremity exam reveals no edema no cyanosis or clubbing Neurological examination reveals no gross focal deficits - Labs CBC & Chem 7: 02/28/21 08:55 02/28/21 08:55 Labs: Abnormal Lab Results - Last 24 Hours (Table) 02/28/21 02/28/21 Range/Units 08:55 08:55 WBC 13.1 H (3.8-10.6) k/uL Hgb 11.1 L (11.4-16.0) gm/dL MCHC 30.9 L (31.0-37.0) g/dL Neutrophils # 11.6 H (1.3-7.7) k/uL Lymphocytes # 0.8 L (1.0-4.8) k/uL Chloride 113 H (98-107) mmol/L BUN 22 H (7-17) mg/dL Glucose 143 H (74-99) mg/dL AST 47 H (14-36) U/L ALT 39 H (4-34) U/L Alkaline Phosphatase 138 H (38-126) U/L Total Protein 5.1 L (6.3-8.2) g/dL Albumin 2.4 L (3.5-5.0) g/dL Microbiology - Last 24 Hours (Table) 02/26/21 12:20 Blood Culture - Preliminary Blood No Growth after 24 hours Assessment and Plan Assessment: 1. Nausea and vomiting secondary to acute cholecystitis. Patient was evaluated by surgery 2. Possible bowel obstruction. Surgical services have been consulted 3. Acute cholecystitis. Status post diagnostic left hip with conversion to open cholecystectomy with Dr. mckinnon of 02/28/2020 4. History of diastolic CHF. No exacerbation at this time 5. Essential hypertension 6. History of hyperlipidemia 7. History of aortic valve replacement with a 10 years ago. There is evidence of severe aortic stenosis at this time the patient will follow up with cardiology to decide whether she wants to proceed with further intervention DVT prophylaxis Lovenox. GI prophylaxis Protonix Patient maintained on IV Rocephin Blood culture and repeat labs ordered Surgical service is consulted
--- NOTE | 2021-02-28 11:30 | P.PN ---
<RadhabeccaLadonna - Last Filed: 02/28/21 11:23> Subjective Progress Note Date: 02/28/21 CHIEF COMPLAINT: Abdominal pain HISTORY OF PRESENT ILLNESS: Patient status post diagnostic laparoscopy with conversion to open cholecystectomy for acute gangrenous cholecystitis with perforation. Patient does complain of some abdominal pain. She is scheduled for pain medication. She denies any nausea or vomiting. Denies any flatus. She does complain of feeling thirsty. Afebrile. WBC is up at 13.1 hemoglobin 11.1 platelet 274 sodium 140 potassium 4.3 BUN 22 creatinine 0.75 AST 47 ALT 39 alk phos 138 PHYSICAL EXAM: VITAL SIGNS: Reviewed. GENERAL: Well-developed in no acute distress. HEENT: No sclera icterus. Extraocular movements grossly intact. Moist buccal mucosa. Head is atraumatic, normocephalic. ABDOMEN: Softer. Distended. Incisional's dressing clean dry and intact. KATERIN drain with serosanguineous 70 mL output NEUROLOGIC: Pleasantly confused ASSESSMENT: 1. Acute gangrenous cholecystitis with perforation status post diagnostic laparoscopy with conversion to open cholecystectomy PLAN: -Continue antibiotics -Continue IV fluids -Continue pain medication as needed -Continue clear liquids -Encouraged patient to increase activity. PT OT following -Encourage incentive spirometer use -GI prophylaxis Protonix and DVT prophylaxis Lovenox Physician Administrative Representative note has been reviewed by physician. Signing provider agrees with the documented findings, assessment, and plan of care. Objective - Vital Signs Vital signs: Vital Signs Temp 98.5 F 02/28/21 04:47 Pulse 73 02/28/21 09:20 Resp 16 02/28/21 04:47 BP 156/69 02/28/21 09:20 Pulse Ox 100 02/28/21 09:20 Intake & Output 02/27/21 02/28/21 02/28/21 18:59 06:59 18:59 Intake Total 1000 1040 Output Total 50 70 Balance 950 970 Intake: IV 1000 Intake, IV Titration 1040 Amount Sodium Chloride 0.9% 1, 1040 000 ml @ 130 mls/hr IV . Q7H42M [facility] Rx#:[id number] Output: Drainage 70 Medial Abdomen 60 Right Abdomen 10 Estimated Blood Loss 50 Other: Voiding Method Incontinent Incontinent Toilet Diaper Incontinent # Voids 0 0 # Bowel Movements 1 - Labs CBC & Chem 7: 01/07/22 08:55 02/28/21 08:55 Labs: Abnormal Lab Results - Last 24 Hours (Table) 02/28/21 02/28/21 Range/Units 08:55 08:55 WBC 13.1 H (3.8-10.6) k/uL Hgb 11.1 L (11.4-16.0) gm/dL MCHC 30.9 L (31.0-37.0) g/dL Neutrophils # 11.6 H (1.3-7.7) k/uL Lymphocytes # 0.8 L (1.0-4.8) k/uL Chloride 113 H (98-107) mmol/L BUN 22 H (7-17) mg/dL Glucose 143 H (74-99) mg/dL AST 47 H (14-36) U/L ALT 39 H (4-34) U/L Alkaline Phosphatase 138 H (38-126) U/L Total Protein 5.1 L (6.3-8.2) g/dL Albumin 2.4 L (3.5-5.0) g/dL Microbiology - Last 24 Hours (Table) 02/26/21 12:20 Blood Culture - Preliminary Blood No Growth after 24 hours <Juve Phan - Last Filed: 02/28/21 12:39> Subjective I have personally seen and examined the patient, reviewed the PATCHING MACHINE OPERATOR /PAs history, exam and MDM and agree with the assessment and plan as written. Based on total visit time, I have performed more than 50% of the visit. As above. A brut doing well today. Minimal pain. Labs noted. KATERIN drain both serosanguineous. Continue advancing diet as tolerated. Increase activity level as well. Objective - Vital Signs Vital signs: Vital Signs Temp 98.5 F 02/28/21 04:47 Pulse 73 02/28/21 09:20 Resp 16 02/28/21 04:47 BP 156/69 02/28/21 09:20 Pulse Ox 100 02/28/21 09:20 Intake & Output 02/27/21 02/28/21 02/28/21 18:59 06:59 18:59 Intake Total 1000 1040 Output Total 50 70 Balance 950 970 Weight 68.039 kg Intake: IV 1000 Intake, IV Titration 1040 Amount Sodium Chloride 0.9% 1, 1040 000 ml @ 130 mls/hr IV . Q7H42M [facility] Rx#:[id number] Output: Drainage 70 Medial Abdomen 60 Right Abdomen 10 Estimated Blood Loss 50 Other: Voiding Method Incontinent Incontinent Toilet Diaper Incontinent # Voids 0 0 # Bowel Movements 1 - Labs CBC & Chem 7: 02/28/21 08:55 02/28/21 08:55 Labs: Abnormal Lab Results - Last 24 Hours (Table) 02/28/21 02/28/21 Range/Units 08:55 08:55 WBC 13.1 H (3.8-10.6) k/uL Hgb 11.1 L (11.4-16.0) gm/dL MCHC 30.9 L (31.0-37.0) g/dL Neutrophils # 11.6 H (1.3-7.7) k/uL Lymphocytes # 0.8 L (1.0-4.8) k/uL Chloride 113 H (98-107) mmol/L BUN 22 H (7-17) mg/dL Glucose 143 H (74-99) mg/dL AST 47 H (14-36) U/L ALT 39 H (4-34) U/L Alkaline Phosphatase 138 H (38-126) U/L Total Protein 5.1 L (6.3-8.2) g/dL Albumin 2.4 L (3.5-5.0) g/dL Microbiology - Last 24 Hours (Table) 02/26/21 12:20 Blood Culture - Preliminary Blood No Growth after 24 hours
[2021-02-28 11:49] VITALS: BMI 28.3
[2021-02-28] MEDS: HYDROcodone/APAP 5-325MG 1 EACH TAB PO PRN (20:36)
[2021-03-01] MEDS: SODIUM CHLORIDE 0.9% 1,000 ML IV SCH ×2 (03:30→16:39)
[2021-03-01 07:00] LABS: Basophils % (A) 0 %; Eosinophils # (A) 0.2 k/uL (0-0.7); Eosinophils % (A) 1 %; HGB 10.4 gm/dL (11.4-16.0); Hypochromasia Moderate; Lymphocytes # (A) 0.9 k/uL (1.0-4.8); Lymphocytes % (A) 8 %; MCH 28.7 pg (25.0-35.0); MCHC 30.5 g/dL (31.0-37.0); MCV 94.1 fL (80.0-100.0); Mean Platelet Volume 8.5; Monocytes # (A) 0.3 k/uL (0-1.0); Monocytes % (A) 3 %; Neutrophils # (A) 9.7 k/uL (1.3-7.7); Neutrophils % (A) 87 %; Platelet Count 254 k/uL (150-450); RBC 3.61 m/uL (3.80-5.40); RDW 14.9 % (11.5-15.5); WBC 11.2 k/uL (3.8-10.6)
[2021-03-01 07:34] LABS: ALT 31 U/L (4-34); AST 37 U/L (14-36); African American GFR (CKD) >90 (>60 ml/min/1.73 sqM); Albumin 2.3 g/dL (3.5-5.0); Albumin/Globulin Ratio 0.8; Alkaline Phosphatase 124 U/L (38-126); Anion Gap 4 mmol/L; Blood Urea Nitrogen 11 mg/dL (7-17); Calcium 8.6 mg/dL (8.4-10.2); Carbon Dioxide 21 mmol/L (22-30); Chloride 113 mmol/L (98-107); Globulin 2.8 g/dL; Glucose 110 mg/dL (74-99); Non-African American GFR(CKD) 79 (>60 ml/min/1.73 sqM); Potassium 3.9 mmol/L (3.5-5.1); Sodium 138 mmol/L (137-145); Total Bilirubin 0.6 mg/dL (0.2-1.3); Total Protein 5.1 g/dL (6.3-8.2)
[2021-03-01] MEDS: ENOXAPARIN 40 MG/0.4 ML SYRINGE SQ SCH (08:24)
[2021-03-01] MEDS: PANTOPRAZOLE 40 MG TABLET PO SCH (08:25)
[2021-03-01] MEDS: lisinopriL 5 MG TAB PO SCH ×2 (08:25→21:15)
[2021-03-01] MEDS: METOPROLOL SUCCINATE (ER) 25 MG TAB.ER.24H PO SCH (08:25)
[2021-03-01] MEDS: PARoxetine 20 MG TAB PO SCH (08:26)
--- NOTE | 2021-03-01 10:54 | P.PN ---
Subjective Progress Note Date: 03/01/21 Principal diagnosis: Cholecystitis Patient doing well today. He can having very little discomfort. White blood cell count 11.2. Her KATERIN drains are both serosanguineous in appearance. Tolerating clear liquids. Denies nausea or vomiting. Objective - Vital Signs Vital signs: Vital Signs Temp 98.4 F 03/01/21 04:30 Pulse 77 03/01/21 04:30 Resp 16 03/01/21 04:30 BP 172/60 03/01/21 05:16 Pulse Ox 96 03/01/21 04:30 Intake & Output 02/28/21 03/01/21 03/01/21 18:59 06:59 18:59 Intake Total 1560 1560 Output Total 63 Balance 1560 1560 -63 Weight 68.039 kg Intake: Intake, IV Titration 1560 1560 Amount Sodium Chloride 0.9% 1, 1560 1560 000 ml @ 130 mls/hr IV . Q7H42M [facility] Rx#:[id number] Output: Drainage 63 Medial Abdomen 45 Right Abdomen 18 Other: Voiding Method Toilet Toilet Toilet Diaper Diaper Diaper Incontinent Incontinent Incontinent # Voids 1 - Exam Abdomen: Soft, mild distention, dressing clean and dry, KATERIN drains in place, minimal tenderness - Labs CBC & Chem 7: 03/01/21 06:34 03/01/21 06:34 Labs: Abnormal Lab Results - Last 24 Hours (Table) 03/01/21 03/01/21 Range/Units 06:34 06:34 WBC 11.2 H (3.8-10.6) k/uL RBC 3.61 L (3.80-5.40) m/uL Hgb 10.4 L (11.4-16.0) gm/dL MCHC 30.5 L (31.0-37.0) g/dL Neutrophils # 9.7 H (1.3-7.7) k/uL Lymphocytes # 0.9 L (1.0-4.8) k/uL Chloride 113 H (98-107) mmol/L Carbon Dioxide 21 L (22-30) mmol/L Glucose 110 H (74-99) mg/dL AST 37 H (14-36) U/L Total Protein 5.1 L (6.3-8.2) g/dL Albumin 2.3 L (3.5-5.0) g/dL Microbiology - Last 24 Hours (Table) 02/26/21 12:20 Blood Culture - Preliminary Blood No Growth after 48 hours Assessment and Plan (1) Acute gangrenous cholecystitis Narrative/Plan: Patient doing well today. Begin advancing diet. Continue increasing activity. Keep drains in place for now. Current Visit: Yes Status: Acute Code(s): K81.0 - ACUTE CHOLECYSTITIS SNOMED Code(s): 19387992
--- NOTE | 2021-03-01 15:18 | P.PN ---
Subjective Progress Note Date: 03/01/21 Nitza Arteaga, is an 86-year-old female patient of Dr. Valerio who presents to the ER with concerns of dehydration and vomiting. Patient has been residing at [facility] since recent hospitalization. Patient does have intermittent confusion and appears to be a poor historian. According to the ER record patient was initially transferred with concerns of altered mental status changes. According to ER record when family presented mental status changes were stated as chronic but really does express concern that patient had poor oral intake and persistent vomiting. Patient was recently admitted for CHF exacerbation. Additional medical history includes essential hypertension, hyperlipidemia and aortic valve replacement. Head CT was completed showing cerebral atrophy. No acute intracranial abnormality. Chest x-ray also completed showing cardiomegaly and parenchymal changes could reflect edema fibrosis correlate clinically significant change from recent x-ray. Abdominal x-ray completed showing gas- filled and mildly dilated small bowel could relate to ileus or partial mechanical obstruction small right pleural effusion. Patient also noted to have significant liver enzymes. He still appeared to be trending down amylase and lipase within normal limits. Creatinine slightly elevated at 1.24 and bun 66. Patient also having elevated at 23.8. This time will order ultrasound of gallbladder. Patient maintained on clear liquid diet. Surgical services also consulted for possible obstruction. Patient's abdomen distended but soft. Patient denies any nausea or vomiting at this time. Patient denies chest pain or shortness breath. Patient denies any urinary burning or frequency On 02/27/2021 patient was seen and examined on the medical floor she is alert, confused in no apparent distress, she denies any chest pain or shortness of breath, she has a known history of aortic stenosis, for which she had aortic valve replacement several years ago, she developed stenosis again in the aortic valve, which was severe on echocardiogram done last month, patient declined repeat surgery in the past . ejection fraction was normal at 55-60%, echocardiogram yesterday was normal , patient denies ever having any coronary artery disease or myocardial infarction. There is no medical contraindication for gallbladder surgery, however patient is at increased risk due to severe aortic stenosis. On review of systems there is no fever or chills no headache or dizziness no chest pain no shortness of breath no cough no nausea or vomiting no abdominal pain at this time and no urinary symptoms On 02/28/2021 patient is alert and oriented with intermittent episodes of confusion. Patient underwent open cholecystectomy yesterday with Dr. Mckinnon. Patient currently has 2 KATERIN drains surgical site dressing is clean dry and intact. Patient remains on clear liquid diet. Patient remains on IV Rocephin. Patient denies chest pain or shortness of breath. Patient denies nausea vomiting or diarrhea. Patient denies any urinary burning or frequency On 03/01/2021 patient was seen and examined on the telemetry floor she is alert and oriented 3 in no apparent distress there is no fever or chills no headache or dizziness no chest pain no shortness of breath no cough no nausea or vomiting no abdominal pain no diarrhea and no urinary symptoms. She underwent open cholecystectomy yesterday by Dr. Phan surgery are following medication and labs were reviewed continue with current management will follow in a.m. Objective - Vital Signs Vital signs: Vital Signs Temp 98.4 F 03/01/21 04:30 Pulse 77 03/01/21 04:30 Resp 16 03/01/21 04:30 BP 172/60 03/01/21 05:16 Pulse Ox 96 03/01/21 04:30 Intake & Output 02/28/21 03/01/21 03/01/21 18:59 06:59 18:59 Intake Total 1560 1560 Balance 1560 1560 Weight 68.039 kg Intake: Intake, IV Titration 1560 1560 Amount Sodium Chloride 0.9% 1, 1560 1560 000 ml @ 130 mls/hr IV . Q7H42M [facility] Rx#:[id number] Other: Voiding Method Toilet Toilet Diaper Diaper Incontinent Incontinent # Voids 1 - Exam In general patient is alert and oriented ?-3 in no distress HEENT head normocephalic and atraumatic Neck is supple no JVD no goiter no lymphadenopathy no carotid bruit Chest examination is clear to auscultation no crackles no wheezing Cardiac exam reveals regular heart sounds S1 and S2 no gallops no murmurs Abdomen is soft slightly distended no organomegaly no palpable masses there is minimal tenderness in the right upper quadrant area normal bowel sounds Extremity exam reveals no edema no cyanosis or clubbing Neurological examination reveals no gross focal deficits - Labs CBC & Chem 7: 03/01/21 06:34 03/01/21 06:34 Labs: Abnormal Lab Results - Last 24 Hours (Table) 02/28/21 02/28/21 03/01/21 Range/Units 08:55 08:55 06:34 WBC 13.1 H 11.2 H (3.8-10.6) k/uL RBC 3.61 L (3.80-5.40) m/uL Hgb 11.1 L 10.4 L (11.4-16.0) gm/dL MCHC 30.9 L 30.5 L (31.0-37.0) g/dL Neutrophils # 11.6 H 9.7 H (1.3-7.7) k/uL Lymphocytes # 0.8 L 0.9 L (1.0-4.8) k/uL Chloride 113 H (98-107) mmol/L Carbon Dioxide (22-30) mmol/L BUN 22 H (7-17) mg/dL Glucose 143 H (74-99) mg/dL AST 47 H (14-36) U/L ALT 39 H (4-34) U/L Alkaline Phosphatase 138 H (38-126) U/L Total Protein 5.1 L (6.3-8.2) g/dL Albumin 2.4 L (3.5-5.0) g/dL 03/01/21 Range/Units 06:34 WBC (3.8-10.6) k/uL RBC (3.80-5.40) m/uL Hgb (11.4-16.0) gm/dL MCHC (31.0-37.0) g/dL Neutrophils # (1.3-7.7) k/uL Lymphocytes # (1.0-4.8) k/uL Chloride 113 H (98-107) mmol/L Carbon Dioxide 21 L (22-30) mmol/L BUN (7-17) mg/dL Glucose 110 H (74-99) mg/dL AST 37 H (14-36) U/L ALT (4-34) U/L Alkaline Phosphatase (38-126) U/L Total Protein 5.1 L (6.3-8.2) g/dL Albumin 2.3 L (3.5-5.0) g/dL Microbiology - Last 24 Hours (Table) 02/26/21 12:20 Blood Culture - Preliminary Blood No Growth after 48 hours Assessment and Plan Assessment: 1. Nausea and vomiting secondary to acute cholecystitis. Patient was evaluated by surgery 2. Possible bowel obstruction. Surgical services have been consulted 3. Acute cholecystitis. Status post diagnostic left hip with conversion to open cholecystectomy with Dr. mckinnon of 02/28/2020 4. History of diastolic CHF. No exacerbation at this time 5. Essential hypertension 6. History of hyperlipidemia 7. History of aortic valve replacement with a 10 years ago. There is evidence of severe aortic stenosis at this time the patient will follow up with cardiology to decide whether she wants to proceed with further intervention DVT prophylaxis Lovenox. GI prophylaxis Protonix Patient maintained on IV Rocephin Blood culture and repeat labs ordered Surgical service is consulted
[2021-03-01] MEDS: HYDROcodone/APAP 5-325MG 1 EACH TAB PO PRN (17:42)
[2021-03-02] MEDS: SODIUM CHLORIDE 0.9% 1,000 ML IV SCH ×4 (02:15→21:20)
[2021-03-02] MEDS: HYDROcodone/APAP 5-325MG 1 EACH TAB PO PRN ×3 (04:45→19:28)
[2021-03-02 07:49] LABS: Basophils % (A) 0 %; Eosinophils # (A) 0.2 k/uL (0-0.7); Eosinophils % (A) 2 %; HCT 32.8 % (34.0-46.0); HGB 10.3 gm/dL (11.4-16.0); Hypochromasia Slight; Lymphocytes # (A) 0.8 k/uL (1.0-4.8); Lymphocytes % (A) 8 %; MCH 29.3 pg (25.0-35.0); MCHC 31.5 g/dL (31.0-37.0); MCV 93.2 fL (80.0-100.0); Mean Platelet Volume 8.4; Monocytes # (A) 0.3 k/uL (0-1.0); Monocytes % (A) 3 %; Neutrophils # (A) 8.6 k/uL (1.3-7.7); Neutrophils % (A) 85 %; Platelet Count 238 k/uL (150-450); RBC 3.52 m/uL (3.80-5.40); RDW 14.5 % (11.5-15.5); WBC 10.1 k/uL (3.8-10.6)
[2021-03-02] MEDS: ENOXAPARIN 40 MG/0.4 ML SYRINGE SQ SCH (08:01)
[2021-03-02] MEDS: PANTOPRAZOLE 40 MG TABLET PO SCH (08:02)
[2021-03-02] MEDS: METOPROLOL SUCCINATE (ER) 25 MG TAB.ER.24H PO SCH (08:02)
[2021-03-02] MEDS: lisinopriL 5 MG TAB PO SCH ×2 (08:02→20:23)
[2021-03-02] MEDS: PARoxetine 20 MG TAB PO SCH (08:03)
--- NOTE | 2021-03-02 10:12 | P.PN ---
Subjective Progress Note Date: 03/02/21 Nitza Arteaga, is an 86-year-old female patient of Dr. Valerio who presents to the ER with concerns of dehydration and vomiting. Patient has been residing at [facility] since recent hospitalization. Patient does have intermittent confusion and appears to be a poor historian. According to the ER record patient was initially transferred with concerns of altered mental status changes. According to ER record when family presented mental status changes were stated as chronic but really does express concern that patient had poor oral intake and persistent vomiting. Patient was recently admitted for CHF exacerbation. Additional medical history includes essential hypertension, hyperlipidemia and aortic valve replacement. Head CT was completed showing cerebral atrophy. No acute intracranial abnormality. Chest x-ray also completed showing cardiomegaly and parenchymal changes could reflect edema fibrosis correlate clinically significant change from recent x-ray. Abdominal x-ray completed showing gas- filled and mildly dilated small bowel could relate to ileus or partial mechanical obstruction small right pleural effusion. Patient also noted to have significant liver enzymes. He still appeared to be trending down amylase and lipase within normal limits. Creatinine slightly elevated at 1.24 and bun 66. Patient also having elevated at 23.8. This time will order ultrasound of gallbladder. Patient maintained on clear liquid diet. Surgical services also consulted for possible obstruction. Patient's abdomen distended but soft. Patient denies any nausea or vomiting at this time. Patient denies chest pain or shortness breath. Patient denies any urinary burning or frequency On 02/27/2021 patient was seen and examined on the medical floor she is alert, confused in no apparent distress, she denies any chest pain or shortness of breath, she has a known history of aortic stenosis, for which she had aortic valve replacement several years ago, she developed stenosis again in the aortic valve, which was severe on echocardiogram done last month, patient declined repeat surgery in the past . ejection fraction was normal at 55-60%, echocardiogram yesterday was normal , patient denies ever having any coronary artery disease or myocardial infarction. There is no medical contraindication for gallbladder surgery, however patient is at increased risk due to severe aortic stenosis. On review of systems there is no fever or chills no headache or dizziness no chest pain no shortness of breath no cough no nausea or vomiting no abdominal pain at this time and no urinary symptoms On 02/28/2021 patient is alert and oriented with intermittent episodes of confusion. Patient underwent open cholecystectomy yesterday with Dr. Mckinnon. Patient currently has 2 KATERIN drains surgical site dressing is clean dry and intact. Patient remains on clear liquid diet. Patient remains on IV Rocephin. Patient denies chest pain or shortness of breath. Patient denies nausea vomiting or diarrhea. Patient denies any urinary burning or frequency On 03/01/2021 patient was seen and examined on the telemetry floor she is alert and oriented 3 in no apparent distress there is no fever or chills no headache or dizziness no chest pain no shortness of breath no cough no nausea or vomiting no abdominal pain no diarrhea and no urinary symptoms. She underwent open cholecystectomy yesterday by Dr. Phan surgery are following medication and labs were reviewed continue with current management will follow in a.m. On 03/02/2021 patient is alert and oriented 3. Diet to be advanced per surgical services. Patient's tolerating diet. At this time patient denies chest pain or shortness breath. Patient denies nausea vomiting or diarrhea. Patient denies any urinary burning or frequency Objective - Vital Signs Vital signs: Vital Signs Temp 98 F 03/02/21 05:00 Pulse 73 03/02/21 05:00 Resp 20 03/02/21 05:00 BP 168/90 03/02/21 05:00 Pulse Ox 92 L 03/02/21 05:00 Intake & Output 03/01/21 03/02/21 03/02/21 18:59 06:59 18:59 Intake Total 1660 Output Total 93 46 25 Balance -93 1614 -25 Intake: Intake, IV Titration 1560 Amount Sodium Chloride 0.9% 1, 1560 000 ml @ 130 mls/hr IV . Q7H42M [facility] Rx#:[id number] Oral 100 Output: Drainage 93 45 25 Medial Abdomen 65 25 20 Right Abdomen 28 20 5 Stool 1 Other: Voiding Method Toilet Toilet Diaper Diaper Incontinent # Voids 1 3 1 # Bowel Movements 1 - Exam In general patient is alert and oriented ?-3 in no distress HEENT head normocephalic and atraumatic Neck is supple no JVD no goiter no lymphadenopathy no carotid bruit Chest examination is clear to auscultation no crackles no wheezing Cardiac exam reveals regular heart sounds S1 and S2 no gallops no murmurs Abdomen is soft slightly distended no organomegaly no palpable masses there is minimal tenderness in the right upper quadrant area normal bowel sounds Extremity exam reveals no edema no cyanosis or clubbing Neurological examination reveals no gross focal deficits - Labs CBC & Chem 7: 03/02/21 07:13 03/01/21 06:34 Labs: Abnormal Lab Results - Last 24 Hours (Table) 03/02/21 Range/Units 07:13 RBC 3.52 L (3.80-5.40) m/uL Hgb 10.3 L (11.4-16.0) gm/dL Hct 32.8 L (34.0-46.0) % Neutrophils # 8.6 H (1.3-7.7) k/uL Lymphocytes # 0.8 L (1.0-4.8) k/uL Microbiology - Last 24 Hours (Table) 02/26/21 12:20 Blood Culture - Preliminary Blood No Growth after 72 hours Assessment and Plan Assessment: 1. Nausea and vomiting secondary to acute cholecystitis. Patient was evaluated by surgery 2. Possible bowel obstruction. Surgical services have been consulted 3. Acute cholecystitis. Status post open cholecystectomy with Dr. mckinnon of 02/28/2020 4. History of diastolic CHF. No exacerbation at this time 5. Essential hypertension 6. History of hyperlipidemia 7. History of aortic valve replacement with a 10 years ago. There is evidence of severe aortic stenosis at this time the patient will follow up with cardiology to decide whether she wants to proceed with further intervention DVT prophylaxis Lovenox. GI prophylaxis Protonix Patient maintained on IV Rocephin Surgical service is consulted
--- NOTE | 2021-03-02 10:34 | P.PN ---
Subjective Progress Note Date: 03/02/21 Principal diagnosis: Cholecystitis Patient doing well today. Denies pain. Drain output decreasing. Drains remained serosanguineous. White blood cell count now normal. Objective - Vital Signs Vital signs: Vital Signs Temp 98 F 03/02/21 05:00 Pulse 73 03/02/21 05:00 Resp 20 03/02/21 05:00 BP 168/90 03/02/21 05:00 Pulse Ox 92 L 03/02/21 05:00 Intake & Output 03/01/21 03/02/21 03/02/21 18:59 06:59 18:59 Intake Total 1660 Output Total 93 46 25 Balance -93 1614 -25 Intake: Intake, IV Titration 1560 Amount Sodium Chloride 0.9% 1, 1560 000 ml @ 130 mls/hr IV . Q7H42M [facility] Rx#:[id number] Oral 100 Output: Drainage 93 45 25 Medial Abdomen 65 25 20 Right Abdomen 28 20 5 Stool 1 Other: Voiding Method Toilet Toilet Diaper Diaper Incontinent # Voids 1 3 1 # Bowel Movements 1 - Exam Abdomen: Soft, nondistended, mild tenderness, dressing clean and dry - Labs CBC & Chem 7: 03/02/21 07:13 03/01/21 06:34 Labs: Abnormal Lab Results - Last 24 Hours (Table) 03/02/21 Range/Units 07:13 RBC 3.52 L (3.80-5.40) m/uL Hgb 10.3 L (11.4-16.0) gm/dL Hct 32.8 L (34.0-46.0) % Neutrophils # 8.6 H (1.3-7.7) k/uL Lymphocytes # 0.8 L (1.0-4.8) k/uL Microbiology - Last 24 Hours (Table) 02/26/21 12:20 Blood Culture - Preliminary Blood No Growth after 72 hours Assessment and Plan (1) Acute gangrenous cholecystitis Narrative/Plan: Patient doing well at this time. Advance diet to low-fat regular foods tomorrow. Likely remove drain tubes tomorrow. Probable discharge tomorrow the following day. Current Visit: Yes Status: Acute Code(s): K81.0 - ACUTE CHOLECYSTITIS SNOMED Code(s): 58254676
[2021-03-02 11:26] LABS: African American GFR (CKD) 90.6 (60.0-200.0); Albumin 2.5 g/dL (3.8-4.9); Albumin/Globulin Ratio 1.18 (1.60-3.17); BUN/Creat Ratio 8.77 Ratio (12.00-20.00); Blood Urea Nitrogen 6.2 mg/dL (9.0-27.0); Calcium 8.4 mg/dL (8.7-10.3); Carbon Dioxide 20.4 mmol/L (20.0-27.5); Globulin 2.2 g/dL (1.6-3.3); Non-African American GFR(CKD) 78.2 (60.0-200.0); Potassium 3.8 mmol/L (3.5-5.5); Total Bilirubin 0.3 mg/dL (0.30-1.20); Total Protein 4.7 g/dL (6.2-8.2)
[2021-03-03] MEDS: SODIUM CHLORIDE 0.9% 1,000 ML IV SCH ×3 (05:05→19:50)
[2021-03-03 07:24] LABS: Basophils % (A) 0 %; Eosinophils # (A) 0.2 k/uL (0-0.7); Eosinophils % (A) 1 %; HCT 37.2 % (34.0-46.0); HGB 11.5 gm/dL (11.4-16.0); Hypochromasia Slight; Lymphocytes % (A) 10 %; MCH 28.5 pg (25.0-35.0); MCHC 30.8 g/dL (31.0-37.0); MCV 92.4 fL (80.0-100.0); Mean Platelet Volume 8.1; Monocytes # (A) 0.3 k/uL (0-1.0); Monocytes % (A) 3 %; Neutrophils # (A) 8.9 k/uL (1.3-7.7); Neutrophils % (A) 85 %; Platelet Count 275 k/uL (150-450); RBC 4.02 m/uL (3.80-5.40); WBC 10.5 k/uL (3.8-10.6)
[2021-03-03] MEDS: ENOXAPARIN 40 MG/0.4 ML SYRINGE SQ SCH (08:45)
[2021-03-03] MEDS: PARoxetine 20 MG TAB PO SCH (08:45)
[2021-03-03] MEDS: PANTOPRAZOLE 40 MG TABLET PO SCH (08:45)
[2021-03-03] MEDS: lisinopriL 5 MG TAB PO SCH ×2 (08:45→19:49)
[2021-03-03] MEDS: METOPROLOL SUCCINATE (ER) 25 MG TAB.ER.24H PO SCH (08:45)
[2021-03-03 11:13] LABS: African American GFR (CKD) 95.7 (60.0-200.0); Albumin 2.6 g/dL (3.8-4.9); Albumin/Globulin Ratio 1.24 (1.60-3.17); Calcium 8.6 mg/dL (8.7-10.3); Globulin 2.1 g/dL (1.6-3.3); Non-African American GFR(CKD) 82.5 (60.0-200.0); Potassium 3.2 mmol/L (3.5-5.5); Total Bilirubin 0.2 mg/dL (0.30-1.20); Total Protein 4.7 g/dL (6.2-8.2)
[2021-03-03] MEDS: ACETAMINOPHEN TAB 325 MG TAB PO PRN (12:25)
--- NOTE | 2021-03-03 12:55 | P.PN ---
<Ladonna Prince - Last Filed: 03/03/21 12:50> Subjective Progress Note Date: 03/03/21 CHIEF COMPLAINT: Abdominal pain HISTORY OF PRESENT ILLNESS: Patient status post diagnostic laparoscopy with conversion to open cholecystectomy for acute gangrenous cholecystitis with perforation. Patient is sitting up at bedside chair. She did have an episode of vomiting yesterday. She is complaining of some bloating this afternoon. She has had a bowel movement and flatus. Denies any significant pain. Afebrile. WBC is 10.5 hemoglobin 11.5 platelets 275 sodium 139 potassium is 3.2 creatinine 0.6 PHYSICAL EXAM: VITAL SIGNS: Reviewed. GENERAL: Well-developed in no acute distress. HEENT: No sclera icterus. Extraocular movements grossly intact. Moist buccal mucosa. Head is atraumatic, normocephalic. ABDOMEN: Soft. Mildly distended. Incisional dressings clean dry and intact. KATERIN drain with serosanguineous output NEUROLOGIC: Pleasantly confused ASSESSMENT: 1. Acute gangrenous cholecystitis with perforation status post diagnostic laparoscopy with conversion to open cholecystectomy 2. Hypokalemia PLAN: -KATERIN drain inferior to the incision will be removed -Abdominal dressing changed -Continue antibiotics -Continue pain medication as needed -Continue low-fat diet -Potassium being replaced -Encouraged patient to increase activity -Encourage incentive spirometer use -Possible discharge tomorrow -GI prophylaxis Protonix and DVT prophylaxis Lovenox Physician Scale Installer note has been reviewed by physician. Signing provider agrees with the documented findings, assessment, and plan of care. Objective - Vital Signs Vital signs: Vital Signs Temp 98.1 F 03/03/21 04:27 Pulse 84 03/03/21 08:57 Resp 16 03/03/21 08:00 BP 184/73 03/03/21 08:57 Pulse Ox 94 L 03/03/21 08:57 Intake & Output 03/02/21 03/03/21 03/03/21 18:59 06:59 18:59 Intake Total 740 Output Total 25 106 1 Balance -25 634 -1 Intake: Intake, IV Titration 240 Amount Sodium Chloride 0.9% 1, 240 000 ml @ 130 mls/hr IV . Q7H42M [facility] Rx#:[id number] Oral 500 Output: Drainage 25 105 Medial Abdomen 20 100 Right Abdomen 5 5 Stool 1 1 Other: Voiding Method Toilet Toilet Toilet Diaper # Voids 1 2 # Bowel Movements 1 - Labs CBC & Chem 7: 03/03/21 06:59 03/03/21 06:59 Labs: Abnormal Lab Results - Last 24 Hours (Table) 03/03/21 03/03/21 Range/Units 06:59 06:59 MCHC 30.8 L (31.0-37.0) g/dL Neutrophils # 8.9 H (1.3-7.7) k/uL Potassium 3.2 L (3.5-5.5) mmol/L Carbon Dioxide 18.0 L (20.0-27.5) mmol/L BUN 6.0 L (9.0-27.0) mg/dL BUN/Creatinine Ratio 10.00 L (12.00-20.00) Ratio Glucose 129 H (70-110) mg/dL Calcium 8.6 L (8.7-10.3) mg/dL Total Bilirubin 0.20 L (0.30-1.20) mg/dL Total Protein 4.7 L (6.2-8.2) g/dL Albumin 2.6 L (3.8-4.9) g/dL Albumin/Globulin Ratio 1.24 L (1.60-3.17) g/dL Microbiology - Last 24 Hours (Table) 02/26/21 12:20 Blood Culture - Preliminary Blood No Growth after 96 hours <Juve Phan - Last Filed: 03/03/21 18:47> Subjective I have personally seen and examined the patient, reviewed the GEOPHYSICS SCIENTIST /PAs history, exam and MDM and agree with the assessment and plan as written. Based on total visit time, I have performed more than 50% of the visit. As above. Complains of abdominal bloatin. Continue diet. Remove subcutan drain. Objective - Vital Signs Vital signs: Vital Signs Temp 97.9 F 03/03/21 12:50 Pulse 64 03/03/21 12:50 Resp 17 03/03/21 12:50 BP 171/69 03/03/21 12:50 Pulse Ox 95 03/03/21 12:50 Intake & Output 03/02/21 03/03/21 03/03/21 18:59 06:59 18:59 Intake Total 740 Output Total 25 106 36 Balance -25 634 -36 Weight 68.039 kg Intake: Intake, IV Titration 240 Amount Sodium Chloride 0.9% 1, 240 000 ml @ 130 mls/hr IV . Q7H42M [facility] Rx#:[id number] Oral 500 Output: Drainage 25 105 20 Medial Abdomen 20 100 20 Right Abdomen 5 5 Stool 1 1 Emesis 15 Other: Voiding Method Toilet Toilet Toilet Diaper # Voids 1 2 # Bowel Movements 1 - Labs CBC & Chem 7: 03/03/21 06:59 03/03/21 06:59 Labs: Abnormal Lab Results - Last 24 Hours (Table) 03/03/21 03/03/21 03/03/21 Range/Units 06:59 06:59 06:59 MCHC 30.8 L (31.0-37.0) g/dL Neutrophils # 8.9 H (1.3-7.7) k/uL Potassium 3.2 L (3.5-5.5) mmol/L Carbon Dioxide 18.0 L (20.0-27.5) mmol/L BUN 6.0 L (9.0-27.0) mg/dL BUN/Creatinine Ratio 10.00 L (12.00-20.00) Ratio Glucose 129 H (70-110) mg/dL Calcium 8.6 L (8.7-10.3) mg/dL Magnesium 1.3 L (1.6-2.3) mg/dL Total Bilirubin 0.20 L (0.30-1.20) mg/dL Total Protein 4.7 L (6.2-8.2) g/dL Albumin 2.6 L (3.8-4.9) g/dL Albumin/Globulin Ratio 1.24 L (1.60-3.17) g/dL Microbiology - Last 24 Hours (Table) 02/26/21 12:20 Blood Culture - Preliminary Blood No Growth after 120 hours Assessment and Plan (1) Acute gangrenous cholecystitis Current Visit: Yes Status: Acute Code(s): K81.0 - ACUTE CHOLECYSTITIS SNOMED Code(s): 22047375
[2021-03-03] MEDS ORDERED: Potassium Replacement Protocol 1 EACH MISC MISCELLANE PRN (13:41)
[2021-03-03] MEDS: POTASSIUM CHLORIDE ER 20 MEQ TAB.ER PO SCH ×2 (13:53→15:50)
[2021-03-03] MEDS: POTASSIUM BICARBONATE/CIT AC 20 MEQ TABLET.EFF PO SCH ×2 (15:43→18:02)
--- NOTE | 2021-03-03 17:13 | P.PN ---
Subjective Progress Note Date: 03/03/21 Nitza Arteaga, is an 86-year-old female patient of Dr. Valerio who presents to the ER with concerns of dehydration and vomiting. Patient has been residing at [facility] since recent hospitalization. Patient does have intermittent confusion and appears to be a poor historian. According to the ER record patient was initially transferred with concerns of altered mental status changes. According to ER record when family presented mental status changes were stated as chronic but really does express concern that patient had poor oral intake and persistent vomiting. Patient was recently admitted for CHF exacerbation. Additional medical history includes essential hypertension, hyperlipidemia and aortic valve replacement. Head CT was completed showing cerebral atrophy. No acute intracranial abnormality. Chest x-ray also completed showing cardiomegaly and parenchymal changes could reflect edema fibrosis correlate clinically significant change from recent x-ray. Abdominal x-ray completed showing gas- filled and mildly dilated small bowel could relate to ileus or partial mechanical obstruction small right pleural effusion. Patient also noted to have significant liver enzymes. He still appeared to be trending down amylase and lipase within normal limits. Creatinine slightly elevated at 1.24 and bun 66. Patient also having elevated at 23.8. This time will order ultrasound of gallbladder. Patient maintained on clear liquid diet. Surgical services also consulted for possible obstruction. Patient's abdomen distended but soft. Patient denies any nausea or vomiting at this time. Patient denies chest pain or shortness breath. Patient denies any urinary burning or frequency On 02/27/2021 patient was seen and examined on the medical floor she is alert, confused in no apparent distress, she denies any chest pain or shortness of breath, she has a known history of aortic stenosis, for which she had aortic valve replacement several years ago, she developed stenosis again in the aortic valve, which was severe on echocardiogram done last month, patient declined repeat surgery in the past . ejection fraction was normal at 55-60%, echocardiogram yesterday was normal , patient denies ever having any coronary artery disease or myocardial infarction. There is no medical contraindication for gallbladder surgery, however patient is at increased risk due to severe aortic stenosis. On review of systems there is no fever or chills no headache or dizziness no chest pain no shortness of breath no cough no nausea or vomiting no abdominal pain at this time and no urinary symptoms On 02/28/2021 patient is alert and oriented with intermittent episodes of confusion. Patient underwent open cholecystectomy yesterday with Dr. Mckinnon. Patient currently has 2 KATERIN drains surgical site dressing is clean dry and intact. Patient remains on clear liquid diet. Patient remains on IV Rocephin. Patient denies chest pain or shortness of breath. Patient denies nausea vomiting or diarrhea. Patient denies any urinary burning or frequency On 03/01/2021 patient was seen and examined on the telemetry floor she is alert and oriented 3 in no apparent distress there is no fever or chills no headache or dizziness no chest pain no shortness of breath no cough no nausea or vomiting no abdominal pain no diarrhea and no urinary symptoms. She underwent open cholecystectomy yesterday by Dr. Phna surgery are following medication and labs were reviewed continue with current management will follow in a.m. On 03/02/2021 patient is alert and oriented 3. Diet to be advanced per surgical services. Patient's tolerating diet. At this time patient denies chest pain or shortness breath. Patient denies nausea vomiting or diarrhea. Patient denies any urinary burning or frequency. On 03/03/2021 patient was seen and examined on the medical floor she is alert and oriented 3 in no apparent distress there is no fever or chills no headache or dizziness no chest pain no shortness of breath no cough no nausea or vomiting no abdominal pain no diarrhea and no urinary symptoms. Patient is improving gradually. Diet is being advanced slowly by surgery, plan for drain removal tomorrow, possible discharge tomorrow or the day after will continue to follow closely. Objective - Vital Signs Vital signs: Vital Signs Temp 98.1 F 03/03/21 04:27 Pulse 84 03/03/21 08:57 Resp 16 03/03/21 08:00 BP 184/73 03/03/21 08:57 Pulse Ox 94 L 03/03/21 08:57 Intake & Output 03/02/21 03/03/21 03/03/21 18:59 06:59 18:59 Intake Total 740 Output Total 25 106 1 Balance -25 634 -1 Intake: Intake, IV Titration 240 Amount Sodium Chloride 0.9% 1, 240 000 ml @ 130 mls/hr IV . Q7H42M [facility] Rx#:[id number] Oral 500 Output: Drainage 25 105 Medial Abdomen 20 100 Right Abdomen 5 5 Stool 1 1 Other: Voiding Method Toilet Toilet Toilet Diaper # Voids 1 2 # Bowel Movements 1 - Exam In general patient is alert and oriented ?-3 in no distress HEENT head normocephalic and atraumatic Neck is supple no JVD no goiter no lymphadenopathy no carotid bruit Chest examination is clear to auscultation no crackles no wheezing Cardiac exam reveals regular heart sounds S1 and S2 no gallops no murmurs Abdomen is soft slightly distended no organomegaly no palpable masses there is minimal tenderness in the right upper quadrant area normal bowel sounds Extremity exam reveals no edema no cyanosis or clubbing Neurological examination reveals no gross focal deficits - Labs CBC & Chem 7: 03/03/21 06:59 03/02/21 07:13 Labs: Abnormal Lab Results - Last 24 Hours (Table) 03/02/21 03/03/21 Range/Units 07:13 06:59 MCHC 30.8 L (31.0-37.0) g/dL Neutrophils # 8.9 H (1.3-7.7) k/uL BUN 6.2 L (9.0-27.0) mg/dL BUN/Creatinine Ratio 8.77 L (12.00-20.00) Ratio Glucose 118 H (70-110) mg/dL Calcium 8.4 L (8.7-10.3) mg/dL Total Protein 4.7 L (6.2-8.2) g/dL Albumin 2.5 L (3.8-4.9) g/dL Albumin/Globulin Ratio 1.18 L (1.60-3.17) g/dL Microbiology - Last 24 Hours (Table) 02/26/21 12:20 Blood Culture - Preliminary Blood No Growth after 96 hours Assessment and Plan Assessment: 1. Nausea and vomiting secondary to acute cholecystitis. Patient was evaluated by surgery 2. Possible bowel obstruction. Surgical services have been consulted 3. Acute cholecystitis. Status post open cholecystectomy with Dr. mckinnon of 02/28/2020 4. History of diastolic CHF. No exacerbation at this time 5. Essential hypertension 6. History of hyperlipidemia 7. History of aortic valve replacement with a 10 years ago. There is evidence of severe aortic stenosis at this time the patient will follow up with cardiology to decide whether she wants to proceed with further intervention DVT prophylaxis Lovenox. GI prophylaxis Protonix Patient maintained on IV Rocephin Surgical service is consulted
[2021-03-03] MEDS: ONDANSETRON 4 MG/2 ML VIAL IVP PRN (18:12)
[2021-03-04] MEDS: ACETAMINOPHEN TAB 325 MG TAB PO PRN (03:47)
[2021-03-04] MEDS: SODIUM CHLORIDE 0.9% 1,000 ML IV SCH ×3 (03:47→17:53)
[2021-03-04] MEDS ORDERED: ONDANSETRON 4 MG/2 ML VIAL IVP PRN (07:39)
[2021-03-04] MEDS: METOPROLOL SUCCINATE (ER) 25 MG TAB.ER.24H PO SCH (09:16)
[2021-03-04] MEDS: PANTOPRAZOLE 40 MG TABLET PO SCH (09:16)
[2021-03-04] MEDS: lisinopriL 5 MG TAB PO SCH ×2 (09:16→21:58)
[2021-03-04] MEDS: METOCLOPRAMIDE 5 MG/ML 2 ML VIAL IVP SCH ×3 (09:17→21:58)
[2021-03-04] MEDS: ENOXAPARIN 40 MG/0.4 ML SYRINGE SQ SCH (09:17)
[2021-03-04 09:32] LABS: Basophils % (A) 0 %; Eosinophils # (A) 0.2 k/uL (0-0.7); Eosinophils % (A) 1 %; HCT 31.8 % (34.0-46.0); HGB 10.3 gm/dL (11.4-16.0); Hypochromasia Slight; Lymphocytes % (A) 5 %; MCH 29.9 pg (25.0-35.0); MCHC 32.3 g/dL (31.0-37.0); MCV 92.6 fL (80.0-100.0); Mean Platelet Volume 8.1; Monocytes # (A) 0.6 k/uL (0-1.0); Monocytes % (A) 3 %; Neutrophils # (A) 17.3 k/uL (1.3-7.7); Neutrophils % (A) 90 %; Platelet Count 246 k/uL (150-450); RBC 3.44 m/uL (3.80-5.40); RDW 14.8 % (11.5-15.5); WBC 19.3 k/uL (3.8-10.6)
[2021-03-04 09:42] LABS: African American GFR (CKD) >90 (>60 ml/min/1.73 sqM); Anion Gap 3 mmol/L; Blood Urea Nitrogen 6 mg/dL (7-17); Calcium 8.7 mg/dL (8.4-10.2); Carbon Dioxide 25 mmol/L (22-30); Chloride 110 mmol/L (98-107); Glucose 119 mg/dL (74-99); Non-African American GFR(CKD) 79 (>60 ml/min/1.73 sqM); Potassium 3.6 mmol/L (3.5-5.1); Sodium 138 mmol/L (137-145)
[2021-03-04] MEDS: MAGNESIUM SULFATE-D5W PMX 1 GM in DEXTROSE/WATER 1 100ML.BAG IVPB SCH ×2 (11:08→14:20)
--- NOTE | 2021-03-04 11:56 | XR ---
EXAMINATION TYPE: XR abdomen 2V DATE OF EXAM: 03/04/2021 COMPARISON: 02/25/[address] 02/26/2021 HISTORY: 86-year-old female with vomiting and abdominal distention FINDINGS: Supine imaging limited for assessment of free air. A surgical drain is present in the upper abdomen. Surgical clips are present. Suspect underlying free air in the left side of the abdomen given visualization of the outside wall o f some of the upper descending colon. Gassy bowel loops throughout. Some residual or contrast materia l within the rectum. IMPRESSION: 1. Surgical drain in the upper abdomen. Diffusely gaseous bowel loops, probable generalized ileus. 2. Unable to exclude free intraperitoneal air the left side of the abdomen this could be residual adam e air after patient's surgery or could represent hollow viscus perforation. Clinically correlate as t o time since surgery. Consider an upright AP or right decubitus view.
[2021-03-04] MEDS ORDERED: IOPAMIDOL CONTRAST (ORAL USE) VIAL PO PRN (13:26)
--- NOTE | 2021-03-04 13:31 | P.PN ---
<RadhaLadonna hduson - Last Filed: 03/04/21 13:15> Subjective Progress Note Date: 03/04/21 CHIEF COMPLAINT: Abdominal pain HISTORY OF PRESENT ILLNESS: Patient status post diagnostic laparoscopy with conversion to open cholecystectomy for acute gangrenous cholecystitis with perforation. POD#5. Patient had 2 episodes of vomiting yesterday after eating. She did have a bowel movement. She reports she is not feeling well today. Has no appetite. Patient reports minimal abdominal pain. Has been using Tylenol. Her diet was downgraded to clear liquids. Afebrile. WBC is up to 19.3 Hgb 10.3 platelets 246 sodium 138 potassium improved from 3.2-3.6 creatinine 0.70 magnesium 1.3 Abdominal x-ray surgical drain in the upper abdomen. Diffusely gaseous bowel loops, probable generalized ileus. Unable to exclude free intraperitoneal air the left side of the abdomen this could be residual free air after patient's surgery or could represent hollow viscus perforation. PHYSICAL EXAM: VITAL SIGNS: Reviewed. GENERAL: Well-developed in no acute distress. HEENT: No sclera icterus. Extraocular movements grossly intact. Moist buccal mucosa. Head is atraumatic, normocephalic. ABDOMEN: Soft. Mildly distended. Incisional dressings clean dry and intact. KATERIN drain with 60ml serosanguineous output NEUROLOGIC: Pleasantly confused ASSESSMENT: 1. Acute gangrenous cholecystitis with perforation status post diagnostic laparoscopy with conversion to open cholecystectomy 2. Postoperative Ileus 3. Leukocytosis 4. Hypokalemia improved 5. Hypomagnesemia PLAN: -Free intraperitoneal air noted on abdominal x-ray. Computed tomography scan of abdomen and pelvis with contrast ordered for further evaluation. -Further recommendations forthcoming per surgeon -Replace magnesium -Add Reglan to help with ileus -Hold paxil due to interaction with Reglan -Continue antibiotics -Continue pain medication as needed -Encouraged patient to increase activity -Encourage incentive spirometer use -GI prophylaxis Protonix and DVT prophylaxis Lovenox Physician Barrel Rifler Broach note has been reviewed by physician. Signing provider agrees with the documented findings, assessment, and plan of care. Objective - Vital Signs Vital signs: Vital Signs Temp 98.2 F 03/04/21 11:25 Pulse 79 03/04/21 11:25 Resp 16 03/04/21 11:25 BP 153/72 03/04/21 11:25 Pulse Ox 96 03/04/21 11:25 Intake & Output 03/03/21 03/04/21 03/04/21 18:59 06:59 18:59 Intake Total 420 Output Total 36 60 Balance -36 420 -60 Weight 68.039 kg Intake: Intake, IV Titration 240 Amount Sodium Chloride 0.9% 1, 240 000 ml @ 130 mls/hr IV . Q7H42M [facility] Rx#:[id number] Oral 180 Output: Drainage 20 60 Medial Abdomen 20 Right Abdomen 60 Stool 1 Emesis 15 Other: Voiding Method Toilet Toilet Diaper Diaper # Voids 2 # Bowel Movements 1 - Labs CBC & Chem 7: 03/04/21 09:06 03/04/21 09:06 Labs: Abnormal Lab Results - Last 24 Hours (Table) 03/03/21 03/04/21 03/04/21 Range/Units 06:59 09:06 09:06 WBC 19.3 H (3.8-10.6) k/uL RBC 3.44 L (3.80-5.40) m/uL Hgb 10.3 L (11.4-16.0) gm/dL Hct 31.8 L (34.0-46.0) % Neutrophils # 17.3 H (1.3-7.7) k/uL Chloride 110 H (98-107) mmol/L BUN 6 L (7-17) mg/dL Glucose 119 H (74-99) mg/dL Magnesium 1.3 L (1.6-2.3) mg/dL Microbiology - Last 24 Hours (Table) 02/26/21 12:20 Blood Culture - Preliminary Blood No Growth after 120 hours <Juve Phan - Last Filed: 03/04/21 17:15> Subjective Patient had episodes of nausea and vomiting. White blood cell count noted to be increased today. KATERIN drain remained serosanguineous. Abdominal x-rays shows ileus. Questionable foci of pneumoperitoneum left side of abdomen. CAT scan abdomen and pelvis ordered. Patient looks good clinically with mild distention and minimal abdominal tenderness. Continue liquid diet for now. Objective - Vital Signs Vital signs: Vital Signs Temp 98.2 F 03/04/21 11:25 Pulse 79 03/04/21 11:25 Resp 16 03/04/21 11:25 BP 153/72 03/04/21 11:25 Pulse Ox 96 03/04/21 11:25 Intake & Output 03/03/21 03/04/21 03/04/21 18:59 06:59 18:59 Intake Total 420 Output Total 36 60 Balance -36 420 -60 Weight 68.039 kg Intake: Intake, IV Titration 240 Amount Sodium Chloride 0.9% 1, 240 000 ml @ 130 mls/hr IV . Q7H42M [facility] Rx#:[id number] Oral 180 Output: Drainage 20 60 Medial Abdomen 20 Right Abdomen 60 Stool 1 Emesis 15 Other: Voiding Method Toilet Toilet Diaper Diaper # Voids 2 # Bowel Movements 1 - Labs CBC & Chem 7: 03/04/21 09:06 03/04/21 09:06 Labs: Abnormal Lab Results - Last 24 Hours (Table) 03/04/21 03/04/21 Range/Units 09:06 09:06 WBC 19.3 H (3.8-10.6) k/uL RBC 3.44 L (3.80-5.40) m/uL Hgb 10.3 L (11.4-16.0) gm/dL Hct 31.8 L (34.0-46.0) % Neutrophils # 17.3 H (1.3-7.7) k/uL Chloride 110 H (98-107) mmol/L BUN 6 L (7-17) mg/dL Glucose 119 H (74-99) mg/dL Microbiology - Last 24 Hours (Table) 02/26/21 12:20 Blood Culture - Final Blood No Growth after 144 hours Assessment and Plan (1) Acute gangrenous cholecystitis Current Visit: Yes Status: Acute Code(s): K81.0 - ACUTE CHOLE[place] [facility] [place] Code(s): 24566579
--- NOTE | 2021-03-04 18:13 | CT ---
EXAMINATION TYPE: CT abdomen pelvis w con DATE OF EXAM: 03/04/2021 HISTORY: Abdominal distention. CT DLP: 1704.3mGycm Automated Exposure Control for Dose Reduction was Utilized. CONTRAST: CT scan of the abdomen and pelvis is performed with IV Contrast, patient injected with 100ml mL of Is ovue 300. COMPARISON: CT of the abdomen and pelvis dated 02/26/2021 and abdominal x-ray dated 03/04/2021 FINDINGS: LUNG BASES: Small bilateral left greater than right pleural effusion. Patchy left lower lobe opacitie s and left lower lobe atelectasis. INCLUDED CARDIAC STRUCTURES: No cardiomegaly or pericardial effusion seen. LIVER: Multiple low attenuating lesions in the left and right hepatic lobes the largest in the medial aspect of the right hepatic lobe measuring up to 1.4 cm, likely on the basis of cyst. Liver contour is smooth. GALLBLADDER : Surgically removed in the interval. There is fluid seen in the gallbladder fossa with s urgical clips. A surgical drain terminates between the left hepatic lobe and the greater curvature of the stomach. BILIARY TREE: No abnormal biliary tree dilation. PANCREAS: No significant abnormality is seen. SPLEEN: No significant abnormality is seen. ADRENALS: No significant abnormality is seen. KIDNEYS AND URETERS: Low attenuating lesion in the right kidney lower pole measuring 1.3 x 1.2 x 1.0 cm. No renal collecting system dilatation. Mild perinephric stranding noted. URINARY BLADDER: Partially distended urinary bladder. Unremarkable as seen. ESOPHAGUS: The distended distal esophagus. Small gastroesophageal hiatal hernia. STOMACH: No significant abnormality is seen. SMALL BOWEL: Mild distention of distal small bowel with fluid content. LARGE BOWEL: Diverticulosis seen. The appendix is not definitely identified. No secondary findings to suggest acute appendicitis in the right lower quadrant. HERNIAS: No significant abnormality is seen. UTERUS/ADNEXA: Nonenlarged uterus. Right adnexal/ovarian cyst or cysts noted. PERITONEUM/MESENTRY: Few tiny foci of free air are seen in the right upper abdomen. Enteric stranding is seen in the right upper abdomen measuring 4.1 cm. LYMPH NODES: No enlarged retroperitoneal or pelvic lymph nodes are appreciated. MAJOR VASCULAR STRUCTURES: There are sclerotic calcifications are seen in the aorta and its branches. No aortic aneurysm seen. OSSEOUS STRUCTURES: Mild generalized osteopenia. Moderate severe degenerative changes are seen in the lower thoracic and lumbar spine. No acute fracture or dislocation seen. Degenerative changes seen at both sacroiliac joints as well. No intra-abdominal loculated/drainable abscess is seen at this time. Soft tissue stranding and surgic al cristian along their and right side abdomen. Previously seen drainage bag lays over the anterior ab domen. Dependent edema the posterior soft tissue. Calcifications are seen in the left breast tissue. IMPRESSION: 1. Status post cholecystectomy, surgical drain which is in the left hepatic lobe and stomach. Few sca ttered foci of free air in the abdomen is likely postsurgical. 2. Stranding in the right upper quadrant with a focal 4.1 cm small amount of fluid or phlegmon, no dr beny abscess seen at this time. 3. Mild fluid-filled distention of the distal small bowel suggestive of ileus. No intestinal obstruct ion at this time. 4. Right kidney lower pole low attenuating lesion measuring 1.3 cm of undetermined etiology.
--- NOTE | 2021-03-04 19:31 | P.PN ---
Subjective Progress Note Date: 03/04/21 Nitza Arteaga, is an 86-year-old female patient of Dr. Valerio who presents to the ER with concerns of dehydration and vomiting. Patient has been residing at [facility] since recent hospitalization. Patient does have intermittent confusion and appears to be a poor historian. According to the ER record patient was initially transferred with concerns of altered mental status changes. According to ER record when family presented mental status changes were stated as chronic but really does express concern that patient had poor oral intake and persistent vomiting. Patient was recently admitted for CHF exacerbation. Additional medical history includes essential hypertension, hyperlipidemia and aortic valve replacement. Head CT was completed showing cerebral atrophy. No acute intracranial abnormality. Chest x-ray also completed showing cardiomegaly and parenchymal changes could reflect edema fibrosis correlate clinically significant change from recent x-ray. Abdominal x-ray completed showing gas- filled and mildly dilated small bowel could relate to ileus or partial mechanical obstruction small right pleural effusion. Patient also noted to have significant liver enzymes. He still appeared to be trending down amylase and lipase within normal limits. Creatinine slightly elevated at 1.24 and bun 66. Patient also having elevated at 23.8. This time will order ultrasound of gallbladder. Patient maintained on clear liquid diet. Surgical services also consulted for possible obstruction. Patient's abdomen distended but soft. Patient denies any nausea or vomiting at this time. Patient denies chest pain or shortness breath. Patient denies any urinary burning or frequency On 02/27/2021 patient was seen and examined on the medical floor she is alert, confused in no apparent distress, she denies any chest pain or shortness of breath, she has a known history of aortic stenosis, for which she had aortic valve replacement several years ago, she developed stenosis again in the aortic valve, which was severe on echocardiogram done last month, patient declined repeat surgery in the past . ejection fraction was normal at 55-60%, echocardiogram yesterday was normal , patient denies ever having any coronary artery disease or myocardial infarction. There is no medical contraindication for gallbladder surgery, however patient is at increased risk due to severe aortic stenosis. On review of systems there is no fever or chills no headache or dizziness no chest pain no shortness of breath no cough no nausea or vomiting no abdominal pain at this time and no urinary symptoms On 02/28/2021 patient is alert and oriented with intermittent episodes of confusion. Patient underwent open cholecystectomy yesterday with Dr. Mckinnon. Patient currently has 2 KATERIN drains surgical site dressing is clean dry and intact. Patient remains on clear liquid diet. Patient remains on IV Rocephin. Patient denies chest pain or shortness of breath. Patient denies nausea vomiting or diarrhea. Patient denies any urinary burning or frequency On 03/01/2021 patient was seen and examined on the telemetry floor she is alert and oriented 3 in no apparent distress there is no fever or chills no headache or dizziness no chest pain no shortness of breath no cough no nausea or vomiting no abdominal pain no diarrhea and no urinary symptoms. She underwent open cholecystectomy yesterday by Dr. Phan surgery are following medication and labs were reviewed continue with current management will follow in a.m. On 03/02/2021 patient is alert and oriented 3. Diet to be advanced per surgical services. Patient's tolerating diet. At this time patient denies chest pain or shortness breath. Patient denies nausea vomiting or diarrhea. Patient denies any urinary burning or frequency. On 03/03/2021 patient was seen and examined on the medical floor she is alert and oriented 3 in no apparent distress there is no fever or chills no headache or dizziness no chest pain no shortness of breath no cough no nausea or vomiting no abdominal pain no diarrhea and no urinary symptoms. Patient is improving gradually. Diet is being advanced slowly by surgery, plan for drain removal tomorrow, possible discharge tomorrow or the day after will continue to follow closely. On 03/04/2021 patient seen and examined on the medical floor, she is alert and oriented in no apparent distress pain over the last 24 hours, WBC increased from 10.5 to 19.3 right upper abdomen computed tomography scan of the abdomen and pelvis was ordered by his surgery of right upper quadrant fluid collection that my represent a phlegmon and evidence of small bowel ileus, at this point patient is not ready yet for discharge, continue with IV antibiotics, ID consult requested Objective - Vital Signs Vital signs: Vital Signs Temp 98.2 F 03/04/21 11:25 Pulse 79 03/04/21 11:25 Resp 16 03/04/21 11:25 BP 153/72 03/04/21 11:25 Pulse Ox 96 03/04/21 11:25 Intake & Output 03/04/21 03/04/21 03/05/21 06:59 18:59 06:59 Intake Total 420 1760 Output Total 60 Balance 420 1700 Intake: Intake, IV Titration 240 1760 Amount Magnesium Sulfate-D5w Pmx 200 1 gm In Dextrose/Water 1 100ml.bag @ 100 mls/hr IVPB Q1H [facility] Rx#: [id number] Sodium Chloride 0.9% 1, 240 1560 000 ml @ 130 mls/hr IV . Q7H42M [facility] Rx#:[id number] Oral 180 Output: Drainage 60 Right Abdomen 60 Other: Voiding Method Toilet Diaper # Voids 2 - Exam In general patient is alert and oriented ?-3 in no distress HEENT head normocephalic and atraumatic Neck is supple no JVD no goiter no lymphadenopathy no carotid bruit Chest examination is clear to auscultation no crackles no wheezing Cardiac exam reveals regular heart sounds S1 and S2 no gallops no murmurs Abdomen is soft slightly distended no organomegaly no palpable masses there is minimal tenderness in the right upper quadrant area normal bowel sounds Extremity exam reveals no edema no cyanosis or clubbing Neurological examination reveals no gross focal deficits - Labs CBC & Chem 7: 03/04/21 09:06 03/04/21 09:06 Labs: Abnormal Lab Results - Last 24 Hours (Table) 03/04/21 03/04/21 Range/Units 09:06 09:06 WBC 19.3 H (3.8-10.6) k/uL RBC 3.44 L (3.80-5.40) m/uL Hgb 10.3 L (11.4-16.0) gm/dL Hct 31.8 L (34.0-46.0) % Neutrophils # 17.3 H (1.3-7.7) k/uL Chloride 110 H (98-107) mmol/L BUN 6 L (7-17) mg/dL Glucose 119 H (74-99) mg/dL Microbiology - Last 24 Hours (Table) 02/26/21 12:20 Blood Culture - Final Blood No Growth after 144 hours Assessment and Plan Assessment: 1. Nausea and vomiting secondary to acute cholecystitis. Patient was evaluated by surgery 2. Possible bowel obstruction. Surgical services have been consulted 3. Acute cholecystitis. Status post open cholecystectomy with Dr. mckinnon of 02/28/2020 4. History of diastolic CHF. No exacerbation at this time 5. Essential hypertension 6. History of hyperlipidemia 7. History of aortic valve replacement with a 10 years ago. There is evidence of severe aortic stenosis at this time the patient will follow up with cardiology to decide whether she wants to proceed with further intervention DVT prophylaxis Lovenox. GI prophylaxis Protonix Patient maintained on IV Rocephin Surgical service is consulted
[2021-03-05] MEDS: METOCLOPRAMIDE 5 MG/ML 2 ML VIAL IVP SCH ×4 (02:55→21:10)
[2021-03-05] MEDS: SODIUM CHLORIDE 0.9% 1,000 ML IV SCH ×3 (05:56→22:50)
[2021-03-05 07:03] LABS: Basophils % (A) 0 %; Eosinophils # (A) 0.3 k/uL (0-0.7); Eosinophils % (A) 3 %; HCT 32.3 % (34.0-46.0); HGB 10.5 gm/dL (11.4-16.0); Hypochromasia Slight; Lymphocytes % (A) 8 %; MCH 29.8 pg (25.0-35.0); MCHC 32.6 g/dL (31.0-37.0); MCV 91.3 fL (80.0-100.0); Mean Platelet Volume 8.4; Monocytes # (A) 0.5 k/uL (0-1.0); Monocytes % (A) 4 %; Neutrophils # (A) 10.2 k/uL (1.3-7.7); Neutrophils % (A) 84 %; Platelet Count 227 k/uL (150-450); RBC 3.54 m/uL (3.80-5.40); RDW 15.1 % (11.5-15.5); WBC 12.1 k/uL (3.8-10.6)
[2021-03-05] MEDS: METOPROLOL SUCCINATE (ER) 25 MG TAB.ER.24H PO SCH (09:40)
[2021-03-05] MEDS: lisinopriL 5 MG TAB PO SCH ×2 (09:40→21:09)
[2021-03-05] MEDS: PANTOPRAZOLE 40 MG TABLET PO SCH (09:40)
[2021-03-05] MEDS: ENOXAPARIN 40 MG/0.4 ML SYRINGE SQ SCH (09:40)
--- NOTE | 2021-03-05 10:30 | P.PN ---
Subjective Progress Note Date: 03/05/21 Nitza Arteaga, is an 86-year-old female patient of Dr. Valerio who presents to the ER with concerns of dehydration and vomiting. Patient has been residing at [facility] since recent hospitalization. Patient does have intermittent confusion and appears to be a poor historian. According to the ER record patient was initially transferred with concerns of altered mental status changes. According to ER record when family presented mental status changes were stated as chronic but really does express concern that patient had poor oral intake and persistent vomiting. Patient was recently admitted for CHF exacerbation. Additional medical history includes essential hypertension, hyperlipidemia and aortic valve replacement. Head CT was completed showing cerebral atrophy. No acute intracranial abnormality. Chest x-ray also completed showing cardiomegaly and parenchymal changes could reflect edema fibrosis correlate clinically significant change from recent x-ray. Abdominal x-ray completed showing gas- filled and mildly dilated small bowel could relate to ileus or partial mechanical obstruction small right pleural effusion. Patient also noted to have significant liver enzymes. He still appeared to be trending down amylase and lipase within normal limits. Creatinine slightly elevated at 1.24 and bun 66. Patient also having elevated at 23.8. This time will order ultrasound of gallbladder. Patient maintained on clear liquid diet. Surgical services also consulted for possible obstruction. Patient's abdomen distended but soft. Patient denies any nausea or vomiting at this time. Patient denies chest pain or shortness breath. Patient denies any urinary burning or frequency On 02/27/2021 patient was seen and examined on the medical floor she is alert, confused in no apparent distress, she denies any chest pain or shortness of breath, she has a known history of aortic stenosis, for which she had aortic valve replacement several years ago, she developed stenosis again in the aortic valve, which was severe on echocardiogram done last month, patient declined repeat surgery in the past . ejection fraction was normal at 55-60%, echocardiogram yesterday was normal , patient denies ever having any coronary artery disease or myocardial infarction. There is no medical contraindication for gallbladder surgery, however patient is at increased risk due to severe aortic stenosis. On review of systems there is no fever or chills no headache or dizziness no chest pain no shortness of breath no cough no nausea or vomiting no abdominal pain at this time and no urinary symptoms On 02/28/2021 patient is alert and oriented with intermittent episodes of confusion. Patient underwent open cholecystectomy yesterday with Dr. Mckinnon. Patient currently has 2 KATERIN drains surgical site dressing is clean dry and intact. Patient remains on clear liquid diet. Patient remains on IV Rocephin. Patient denies chest pain or shortness of breath. Patient denies nausea vomiting or diarrhea. Patient denies any urinary burning or frequency On 03/01/2021 patient was seen and examined on the telemetry floor she is alert and oriented 3 in no apparent distress there is no fever or chills no headache or dizziness no chest pain no shortness of breath no cough no nausea or vomiting no abdominal pain no diarrhea and no urinary symptoms. She underwent open cholecystectomy yesterday by Dr. Phan surgery are following medication and labs were reviewed continue with current management will follow in a.m. On 03/02/2021 patient is alert and oriented 3. Diet to be advanced per surgical services. Patient's tolerating diet. At this time patient denies chest pain or shortness breath. Patient denies nausea vomiting or diarrhea. Patient denies any urinary burning or frequency. On 03/03/2021 patient was seen and examined on the medical floor she is alert and oriented 3 in no apparent distress there is no fever or chills no headache or dizziness no chest pain no shortness of breath no cough no nausea or vomiting no abdominal pain no diarrhea and no urinary symptoms. Patient is improving gradually. Diet is being advanced slowly by surgery, plan for drain removal tomorrow, possible discharge tomorrow or the day after will continue to follow closely. On 03/04/2021 patient seen and examined on the medical floor, she is alert and oriented in no apparent distress pain over the last 24 hours, WBC increased from 10.5 to 19.3 right upper abdomen computed tomography scan of the abdomen and pelvis was ordered by his surgery of right upper quadrant fluid collection that my represent a phlegmon and evidence of small bowel ileus, at this point patient is not ready yet for discharge, continue with IV antibiotics, ID consult requested 03/05/2021 patient's alert and oriented. White blood cell been down to 12.1. Awaiting infectious disease input. Patient remains on IV Rocephin. Patient remains on clear liquid diet. Surgical services are following. Patient denies chest pain or shortness breath. Patient denies nausea vomiting or diarrhea. Patient denies any urinary burning or frequency. Objective - Vital Signs Vital signs: Vital Signs Temp 98.6 F 03/05/21 05:00 Pulse 87 03/05/21 05:00 Resp 18 03/05/21 05:00 BP 150/71 03/05/21 05:00 Pulse Ox 92 L 03/05/21 05:00 Intake & Output 03/04/21 03/05/21 03/05/21 18:59 06:59 18:59 Intake Total 1760 240 Output Total 60 60 Balance 1700 240 -60 Intake: Intake, IV Titration 1760 240 Amount Magnesium Sulfate-D5w Pmx 200 1 gm In Dextrose/Water 1 100ml.bag @ 100 mls/hr IVPB Q1H [facility] Rx#: [id number] Sodium Chloride 0.9% 1, 1560 240 000 ml @ 130 mls/hr IV . Q7H42M [facility] Rx#:[id number] Output: Drainage 60 60 Right Abdomen 60 60 Other: Voiding Method Toilet Diaper # Voids 2 - Exam In general patient is alert and oriented ?-3 in no distress HEENT head normocephalic and atraumatic Neck is supple no JVD no goiter no lymphadenopathy no carotid bruit Chest examination is clear to auscultation no crackles no wheezing Cardiac exam reveals regular heart sounds S1 and S2 no gallops no murmurs Abdomen is soft slightly distended no organomegaly no palpable masses there is minimal tenderness in the right upper quadrant area normal bowel sounds Extremity exam reveals no edema no cyanosis or clubbing Neurological examination reveals no gross focal deficits - Labs CBC & Chem 7: 03/05/21 06:36 03/04/21 09:06 Labs: Abnormal Lab Results - Last 24 Hours (Table) 03/04/21 03/05/21 Range/Units 09:06 06:36 WBC 12.1 H (3.8-10.6) k/uL RBC 3.54 L (3.80-5.40) m/uL Hgb 10.5 L (11.4-16.0) gm/dL Hct 32.3 L (34.0-46.0) % Neutrophils # 10.2 H (1.3-7.7) k/uL Magnesium 1.2 L (1.5-2.4) mg/dL Microbiology - Last 24 Hours (Table) 02/26/21 12:20 Blood Culture - Final Blood No Growth after 144 hours Assessment and Plan Assessment: 1. Nausea and vomiting secondary to acute cholecystitis. Patient was evaluated by surgery 2. Possible bowel obstruction. Surgical services have been consulted 3. Acute cholecystitis. Status post open cholecystectomy with Dr. mckinnon of 02/28/2020 4. History of diastolic CHF. No exacerbation at this time 5. Essential hypertension 6. History of hyperlipidemia 7. History of aortic valve replacement with a 10 years ago. There is evidence of severe aortic stenosis at this time the patient will follow up with cardiology to decide whether she wants to proceed with further intervention 8. Leukocytosis. Patient remains on IV Rocephin infectious disease service is consulted CT of abdomen completed and reviewed per surgical services DVT prophylaxis Lovenox. GI prophylaxis Protonix Patient maintained on IV Rocephin Infectious disease service is consulted Surgical service is consulted
[2021-03-05 10:45] LABS: Albumin 2.7 g/dL (3.8-4.9); Albumin/Globulin Ratio 1.25 (1.60-3.17); Anion Gap 10.9 mmol/L (10.00-18.00); BUN/Creat Ratio 7.94 Ratio (12.00-20.00); Calcium 8.8 mg/dL (8.7-10.3); Carbon Dioxide 23.5 mmol/L (20.0-27.5); Globulin 2.2 g/dL (1.6-3.3); Magnesium 1.8 mg/dL (1.5-2.4); Non-African American GFR(CKD) 81.1 (60.0-200.0); Potassium 3.1 mmol/L (3.5-5.5); Total Bilirubin 0.3 mg/dL (0.30-1.20); Total Protein 4.8 g/dL (6.2-8.2)
--- NOTE | 2021-03-05 11:27 | P.CONS ---
History of Present Illness - Reason for Consult Consult date: 03/04/21 abdominal infection Requesting physician: Negar Calderon - Chief Complaint abd pain x few days - History of Present Illness History of Present Illness : Patient is 86-year female who presented to [facility] ER more than a week ago on February 25, 2021 for evaluation of mental status changes that started the day of presentation to the hospital patient on presentation to the ER was afebrile and no fever has been recorded subsequently patient did have white count of 23.8 and did have elevated liver enzymes patient did have a abdominal ultrasound that was suggestive of distended and thickened gallbladder with sludge and small calculi patient was evaluated by general surgery did have a CT of abdominal pelvis prominent area of fluid filled small bowel loops without a zone of transition cholelithiasis with distended gallbladder patient was subsequently go to the OR on 03/09/2021 and the patient was noticed to acute gangrenous cholecystitis with perforation diagnostic nephroscopy with conversion to open cholecystectomy postoperative the patient has been treated with the Rocephin patient started having abdominal pain today describing to more of a dull aching to sharp 5-6 of 10 no radiation some nausea but no vomiting and no diarrhea that has prompted this infectious disease consultation with concern for abdominal infection patient did have a CT abd ominal pelvis completed report is currently pending Review of system: CONSTITUTIONAL: Positive for weakness denies high-grade fever. EYES: No complaint. ENT: No complaint. RESPIRATORY: No complaint. CARDIOVASCULAR: No complaint. GENITOURINARY: No complaint. GASTROINTESTINAL as per history of present illness. MUSCULOSKELETAL: No complaint. INTEGUMENTARY : No complaint. PSYCHOLOGIC: No complaint. ENDOCRINE: No complaint. NEUROLOGIC: No complaint. Past medical history : Reviewed, documented below Past surgical history : Reviewed, documented below Social history: Reviewed, documented below Medications: Reviewed, as documented below EXAMINATION: Vital sigans= Reviewed and documented below GENERAL DESCRIPTION: Elderly female up in the chair, no distress. No tachypnea or accessory muscle of respiration use. HEENT: Shows Pallor , no scleral icterus. Oral mucous membrane is dry. NECK: Trachea central, no thyromegaly. LUNGS: Unlabored breathing. Decreased breath sound at the base. No wheeze or crackle. HEART: S1, S2, regular rate and rhythm. ABDOMEN: Soft, mild distention and mildly tenderness , no guarding or rigidity EXTREMITIES: No edema feet SKIN: No rash, no masses palpable. NEUROLOGICAL: The patient is awake, alert, oriented x3, mood and affect normal. LABS AND RADIOLOGY: Reviewed results see below Assessment : Patient with abdominal pain in this patient who is status post open cholecystectomy for gangrenous perforated cholecystitis with abnormal x-ray unable to exclude free intraperitoneal air for the patient did have CT abdominal pelvis with report currently pending will need to cover for the enteric gram- negative both aerobes and anaerobes to the likely pathogen Plan: 1-discontinue Rocephin 2-start patient Unasyn 3 g every 6 hours 3-gentle IV fluid We will follow on clinical condition and cultures to further adjust medication if needed Thank you for this consultation we will follow the patient along with you Past Medical History Past Medical History: Heart Failure, GERD/Reflux, Hyperlipidemia, Hypertension Additional Past Medical History / Comment(s): , AORTIC VALVE REPLACEMENT 10 YEARS AGO History of Any Multi-Drug Resistant Organisms: None Reported Past Surgical History: Cardiac Valve Replacement Past Anesthesia/Blood Transfusion Reactions: No Reported Reaction Past Psychological History: No Psychological Hx Reported Smoking Status: Never smoker Past Alcohol Use History: None Reported Past Drug Use History: None Reported - Past Family History Mother Family Medical History: Hypertension Medications and Allergies Home Medications Medication Instructions Recorded Confirmed Type Metoprolol Succinate (ER) [Toprol 25 mg PO DAILY@0900 02/07/21 02/25/21 History XL] Omeprazole 20 mg PO DAILY@0600 02/07/21 02/25/21 History PARoxetine HCL [Paxil] 40 mg PO DAILY@0900 02/07/21 02/25/21 History Simvastatin [Zocor] 40 mg PO HS@2100 02/07/21 02/25/21 History Ammonium Lactate Lotion 1 applic TOPICAL Q12H 02/25/21 02/25/21 History [Lac-Hydrin 12% Lotion] Bismuth Subsalicylate 524 mg PO Q4H PRN 02/25/21 02/25/21 History [Pepto-Bismol] Furosemide [Lasix] 20 mg PO BID@0600,1400 02/25/21 02/25/21 History Potassium Chloride ER [K-Dur 20] 20 meq PO DAILY@0900 02/25/21 02/25/21 History lisinopriL [Zestril] 5 mg PO BID@0900,2100 02/25/21 02/25/21 History Allergies Allergy/AdvReac Type Severity Reaction Status Date / Time No Known Allergies Allergy Verified 02/27/21 13:39 Physical Exam Vitals: Vital Signs Temp Pulse Pulse Pulse Resp BP Pulse Ox 03/04/21 11:25 98.2 F 79 16 153/72 96 03/04/21 09:36 75 172/69 03/04/21 03:49 98.3 F 76 16 150/70 93 L 03/03/21 20:51 97.5 F L 65 16 155/67 91 L Intake and Output 03/04/21 03/04/21 03/04/21 06:59 14:59 22:59 Intake Total 360 1760 Output Total 60 Balance 360 -60 1760 Intake: Intake, IV Titration 240 1760 Amount Magnesium Sulfate-D5w Pmx 200 1 gm In Dextrose/Water 1 100ml.bag @ 100 mls/hr IVPB Q1H [facility] Rx#: [id number] Sodium Chloride 0.9% 1, 240 1560 000 ml @ 130 mls/hr IV . Q7H42M [facility] Rx#:[id number] Oral 120 Output: Drainage 60 Right Abdomen 60 Other: # Voids 2 Results CBC & Chem 7: 03/05/21 06:36 03/05/21 06:36 Labs: Abnormal Lab Results - Last 24 Hours (Table) 03/04/21 03/04/21 Range/Units 09:06 09:06 WBC 19.3 H (3.8-10.6) k/uL RBC 3.44 L (3.80-5.40) m/uL Hgb 10.3 L (11.4-16.0) gm/dL Hct 31.8 L (34.0-46.0) % Neutrophils # 17.3 H (1.3-7.7) k/uL Chloride 110 H (98-107) mmol/L BUN 6 L (7-17) mg/dL Glucose 119 H (74-99) mg/dL Microbiology - Last 24 Hours (Table) 02/26/21 12:20 Blood Culture - Final Blood No Growth after 144 hours
[2021-03-05] MEDS ORDERED: POTASSIUM CHLORIDE ER 20 MEQ TAB.ER PO STA (12:02)
--- NOTE | 2021-03-05 12:03 | P.PN ---
<Ladonna Prince - Last Filed: 03/05/21 11:55> Subjective Progress Note Date: 03/05/21 CHIEF COMPLAINT: Abdominal pain HISTORY OF PRESENT ILLNESS: Patient status post diagnostic laparoscopy with conversion to open cholecystectomy for acute gangrenous cholecystitis with perforation. POD#6. Patient looks better today. Patient has had no further vomiting. She is having bowel movements and flatus. Patient seen by ID jamie conte. Antibiotics have been adjusted. Afebrile. White count is trending down from 19.3-12.1. Sodium 141 potassium 3.1 magnesium 1.8 .Computed tomography scan shows status post cholecystectomy, surgical drain in the left hepatic lobe and stomach. Few scattered foci of air in the abdomen is likely postsurgical. Stranding in the right upper quadrants with a focal 4.1 cm small amount of fluid or phlegmon no drainable abscess seen. Mild fluid-filled distention of the distal small bowel suggestive of ileus. No intestinal obstruction at this time. Right kidney lower pole low attenuation lesion measuring 1.3 cm of undetermined etiology. PHYSICAL EXAM: VITAL SIGNS: Reviewed. GENERAL: Well-developed in no acute distress. HEENT: No sclera icterus. Extraocular movements grossly intact. Moist buccal mucosa. Head is atraumatic, normocephalic. ABDOMEN: Soft. Nondistended. Incision site clean dry and intact. KATERIN drain 60 mL circinate limits fluid NEUROLOGIC: Pleasantly confused ASSESSMENT: 1. Acute gangrenous cholecystitis with perforation status post diagnostic laparoscopy with conversion to open cholecystectomy 2. Postoperative Ileus 3. Leukocytosis 4. Hypokalemia 5. Hypomagnesemia 6. Small amount of free air noted on x-ray and CAT scan is post surgical PLAN: -Replacing potassium -Recheck potassium in a.m. -Advance diet to low-fat -Continue antibiotics per ID service -Continue Reglan -Hold paxil due to interaction with Reglan -Continue pain medication as needed -Encouraged patient to increase activity -Encourage incentive spirometer use -GI prophylaxis Protonix and DVT prophylaxis Lovenox [employer] note has been reviewed by physician. Signing provider agrees with the documented findings, assessment, and plan of care. Objective - Vital Signs Vital signs: Vital Signs Temp 98.6 F 03/05/21 05:00 Pulse 87 03/05/21 05:00 Resp 18 03/05/21 05:00 BP 150/71 03/05/21 05:00 Pulse Ox 92 L 03/05/21 05:00 Intake & Output 03/04/21 03/05/21 03/05/21 18:59 06:59 18:59 Intake Total 1760 240 Output Total 60 60 Balance 1700 240 -60 Intake: Intake, IV Titration 1760 240 Amount Magnesium Sulfate-D5w Pmx 200 1 gm In Dextrose/Water 1 100ml.bag @ 100 mls/hr IVPB Q1H [facility] Rx#: [id number] Sodium Chloride 0.9% 1, 1560 240 000 ml @ 130 mls/hr IV . Q7H42M [facility] Rx#:[id number] Output: Drainage 60 60 Right Abdomen 60 60 Other: Voiding Method Toilet Diaper # Voids 2 - Labs CBC & Chem 7: 03/05/21 06:36 03/05/21 06:36 Labs: Abnormal Lab Results - Last 24 Hours (Table) 03/04/21 03/05/21 03/05/21 Range/Units 09:06 06:36 06:36 WBC 12.1 H (3.8-10.6) k/uL RBC 3.54 L (3.80-5.40) m/uL Hgb 10.5 L (11.4-16.0) gm/dL Hct 32.3 L (34.0-46.0) % Neutrophils # 10.2 H (1.3-7.7) k/uL Potassium 3.1 L (3.5-5.5) mmol/L BUN 5.0 L (9.0-27.0) mg/dL BUN/Creatinine Ratio 7.94 L (12.00-20.00) Ratio Glucose 118 H (70-110) mg/dL Magnesium 1.2 L (1.5-2.4) mg/dL Total Protein 4.8 L (6.2-8.2) g/dL Albumin 2.7 L (3.8-4.9) g/dL Albumin/Globulin Ratio 1.25 L (1.60-3.17) g/dL Microbiology - Last 24 Hours (Table) 02/26/21 12:20 Blood Culture - Final Blood No Growth after 144 hours <Juve Phan - Last Filed: 03/05/21 12:14> Subjective As above. CAT scan reviewed. No free air of significance noted. No abscess. Air and fluid in colon and small bowel consistent with ileus. Resume diet. Monitor electrolytes. Increase activity as tolerated. Objective - Vital Signs Vital signs: Vital Signs Temp 97.5 F L 03/05/21 12:12 Pulse 68 03/05/21 12:12 Resp 16 03/05/21 12:12 BP 121/67 03/05/21 12:12 Pulse Ox 98 03/05/21 12:12 Intake & Output 03/04/21 03/05/21 03/05/21 18:59 06:59 18:59 Intake Total 1760 240 Output Total 60 60 Balance 1700 240 -60 Intake: Intake, IV Titration 1760 240 Amount Magnesium Sulfate-D5w Pmx 200 1 gm In Dextrose/Water 1 100ml.bag @ 100 mls/hr IVPB Q1H [facility] Rx#: [id number] Sodium Chloride 0.9% 1, 1560 240 000 ml @ 130 mls/hr IV . Q7H42M [facility] Rx#:[id number] Output: Drainage 60 60 Right Abdomen 60 60 Other: Voiding Method Toilet Toilet Diaper Diaper # Voids 2 - Labs CBC & Chem 7: 03/05/21 06:36 03/05/21 06:36 Labs: Abnormal Lab Results - Last 24 Hours (Table) 03/04/21 03/05/21 03/05/21 Range/Units 09:06 06:36 06:36 WBC 12.1 H (3.8-10.6) k/uL RBC 3.54 L (3.80-5.40) m/uL Hgb 10.5 L (11.4-16.0) gm/dL Hct 32.3 L (34.0-46.0) % Neutrophils # 10.2 H (1.3-7.7) k/uL Potassium 3.1 L (3.5-5.5) mmol/L BUN 5.0 L (9.0-27.0) mg/dL BUN/Creatinine Ratio 7.94 L (12.00-20.00) Ratio Glucose 118 H (70-110) mg/dL Magnesium 1.2 L (1.5-2.4) mg/dL Total Protein 4.8 L (6.2-8.2) g/dL Albumin 2.7 L (3.8-4.9) g/dL Albumin/Globulin Ratio 1.25 L (1.60-3.17) g/dL Microbiology - Last 24 Hours (Table) 02/26/21 12:20 Blood Culture - Final Blood No Growth after 144 hours Assessment and Plan (1) Acute gangrenous cholecystitis Current Visit: Yes Status: Acute Code(s): K81.0 - ACUTE CHOLECYSTITIS SNOMED Code(s): 76715796
[2021-03-05] MEDS: AMPICILLIN-SULBACTAM 3 GM in SODIUM CHLORIDE 0.9% 100 ML IVPB SCH ×2 (14:46→19:49)
--- NOTE | 2021-03-05 23:11 | PN ---
PROGRESS NOTE DATE OF SERVICE: 03/05/2021 REASON FOR FOLLOWUP: Perforated large gangrenous cholecystitis. INTERVAL HISTORY: The patient is afebrile. The patient is breathing more comfortably. Patient denies any chest pain, shortness of breath or cough. Abdominal pain is currently controlled. No nausea, no vomiting. Has been tolerating her clear liquid diet. PHYSICAL EXAMINATION: On examination: Blood pressure 121/76, pulse 80, temperature 97.9. She is 98% on room air. General description is an elderly female up in the chair in no distress. Respiratory system: Unlabored breathing, decreased breath sounds in the bases. No wheeze. Heart S1, S2. Regular rate and rhythm. Abdomen soft, no tenderness. LABS: Hemoglobin is 10.5, white count 4.1, creatinine 0.6. DIAGNOSTIC IMPRESSION AND PLAN: Patient with acute gangrenous cholecystitis status post cholecystectomy in this patient who did have abdominal pain and elevated white count with concern for possible abscess. CT scan of abdomen and pelvis did not show any acute abnormality. Patient to continue with Unasyn while monitoring clinical course closely. Continue supportive care. MMODL / IJN: [id number] /
[2021-03-06] MEDS: AMPICILLIN-SULBACTAM 3 GM in SODIUM CHLORIDE 0.9% 100 ML IVPB SCH ×5 (00:28→23:34)
[2021-03-06] MEDS: METOCLOPRAMIDE 5 MG/ML 2 ML VIAL IVP SCH ×4 (02:23→19:47)
[2021-03-06] MEDS: SODIUM CHLORIDE 0.9% 1,000 ML IV SCH ×4 (05:23→23:34)
[2021-03-06 06:27] LABS: Basophils % (A) 0 %; Eosinophils # (A) 0.4 k/uL (0-0.7); Eosinophils % (A) 5 %; HCT 32.6 % (34.0-46.0); HGB 10.3 gm/dL (11.4-16.0); Hypochromasia Slight; Lymphocytes # (A) 1.1 k/uL (1.0-4.8); Lymphocytes % (A) 14 %; MCH 29.3 pg (25.0-35.0); MCHC 31.5 g/dL (31.0-37.0); MCV 92.9 fL (80.0-100.0); Monocytes # (A) 0.4 k/uL (0-1.0); Monocytes % (A) 5 %; Neutrophils # (A) 5.5 k/uL (1.3-7.7); Neutrophils % (A) 73 %; Platelet Count 243 k/uL (150-450); RBC 3.51 m/uL (3.80-5.40); RDW 15.8 % (11.5-15.5); WBC 7.5 k/uL (3.8-10.6)
[2021-03-06] MEDS: PANTOPRAZOLE 40 MG TABLET PO SCH (07:54)
[2021-03-06] MEDS: ENOXAPARIN 40 MG/0.4 ML SYRINGE SQ SCH (07:54)
[2021-03-06] MEDS: lisinopriL 5 MG TAB PO SCH ×2 (07:54→20:16)
[2021-03-06] MEDS: METOPROLOL SUCCINATE (ER) 25 MG TAB.ER.24H PO SCH (07:54)
--- NOTE | 2021-03-06 10:32 | P.PN ---
<Ladonna Prince - Last Filed: 03/06/21 10:27> Subjective Progress Note Date: 03/06/21 CHIEF COMPLAINT: Abdominal pain HISTORY OF PRESENT ILLNESS: Patient status post diagnostic laparoscopy with conversion to open cholecystectomy for acute gangrenous cholecystitis with perforation. POD#7. Patient is sitting up at bedside chair. She is eating a low-fat diet. She's had no further episodes of vomiting. She is having flatus and bowel movements. She denies any pain at this time. Afebrile. WBC has normalized from 12.1-7.5 Hgb 10.3 CMP pending PHYSICAL EXAM: VITAL SIGNS: Reviewed. GENERAL: Well-developed in no acute distress. HEENT: No sclera icterus. Extraocular movements grossly intact. Moist buccal mucosa. Head is atraumatic, normocephalic. ABDOMEN: Soft. Nondistended. Nontender. Incision site clean dry and intact. KATERIN drain 60 mL serosanguineous fluid NEUROLOGIC: Pleasantly confused ASSESSMENT: 1. Acute gangrenous cholecystitis with perforation status post diagnostic laparoscopy with conversion to open cholecystectomy 2. Postoperative Ileus improving 3. Leukocytosis 4. Hypokalemia 5. Hypomagnesemia 6. Small amount of free air noted on x-ray and CAT scan is post surgical PLAN: -Continue to monitor electrolytes -continue low-fat diet -Continue antibiotics per ID service -Continue Reglan -Hold paxil due to interaction with Reglan -Continue pain medication as needed -Encouraged patient to increase activity -Encourage incentive spirometer use -GI prophylaxis Protonix and DVT prophylaxis Lovenox Physician Receiving Teller note has been reviewed by physician. Signing provider agrees with the documented findings, assessment, and plan of care. Objective - Vital Signs Vital signs: Vital Signs Temp 97.6 F 03/06/21 05:00 Pulse 75 03/06/21 07:56 Resp 18 03/06/21 05:00 BP 158/74 03/06/21 07:56 Pulse Ox 99 03/06/21 05:00 Intake & Output 03/05/21 03/06/21 03/06/21 18:59 06:59 18:59 Intake Total 100 Output Total 60 40 Balance -60 60 Intake: Oral 100 Output: Drainage 60 40 Right Abdomen 60 40 Other: Voiding Method Toilet Toilet Diaper Diaper # Voids 2 1 # Bowel Movements 1 1 - Labs CBC & Chem 7: 03/06/21 06:04 03/05/21 06:36 Labs: Abnormal Lab Results - Last 24 Hours (Table) 03/05/21 03/06/21 Range/Units 06:36 06:04 RBC 3.51 L (3.80-5.40) m/uL Hgb 10.3 L (11.4-16.0) gm/dL Hct 32.6 L (34.0-46.0) % RDW 15.8 H (11.5-15.5) % Potassium 3.1 L (3.5-5.5) mmol/L BUN 5.0 L (9.0-27.0) mg/dL BUN/Creatinine Ratio 7.94 L (12.00-20.00) Ratio Glucose 118 H (70-110) mg/dL Total Protein 4.8 L (6.2-8.2) g/dL Albumin 2.7 L (3.8-4.9) g/dL Albumin/Globulin Ratio 1.25 L (1.60-3.17) g/dL <Juve Phan - Last Filed: 03/06/21 15:47> Subjective I have personally seen and examined the patient, reviewed the OPERATIONS SUPERINTENDENT /PAs history, exam and MDM and agree with the assessment and plan as written. Based on total visit time, I have performed more than 50% of the visit. As above. Patient doing much better. White blood cell count normal now. She feels well. No nausea or vomiting. Tolerating diet. Replace hypokalemia. Remove KATERIN drain. Probable discharge tomorrow. Objective - Vital Signs Vital signs: Vital Signs Temp 97.6 F 03/06/21 11:36 Pulse 68 03/06/21 11:36 Resp 18 03/06/21 11:36 BP 116/77 03/06/21 11:36 Pulse Ox 91 L 03/06/21 11:36 Intake & Output 03/05/21 03/06/21 03/06/21 18:59 06:59 18:59 Intake Total 100 Output Total 60 40 Balance -60 60 Intake: Oral 100 Output: Drainage 60 40 Right Abdomen 60 40 Other: Voiding Method Toilet Toilet Diaper Diaper # Voids 2 1 # Bowel Movements 1 1 - Labs CBC & Chem 7: 03/06/21 06:04 03/06/21 06:04 Labs: Abnormal Lab Results - Last 24 Hours (Table) 03/06/21 03/06/21 Range/Units 06:04 06:04 RBC 3.51 L (3.80-5.40) m/uL Hgb 10.3 L (11.4-16.0) gm/dL Hct 32.6 L (34.0-46.0) % RDW 15.8 H (11.5-15.5) % Potassium 2.9 L (3.5-5.5) mmol/L Anion Gap 9.60 L (10.00-18.00) mmol/L BUN 4.5 L (9.0-27.0) mg/dL BUN/Creatinine Ratio 7.50 L (12.00-20.00) Ratio Glucose 114 H (70-110) mg/dL Calcium 8.4 L (8.7-10.3) mg/dL Total Protein 4.7 L (6.2-8.2) g/dL Albumin 2.6 L (3.8-4.9) g/dL Albumin/Globulin Ratio 1.24 L (1.60-3.17) g/dL Assessment and Plan (1) Acute gangrenous cholecystitis Current Visit: Yes Status: Acute Code(s): K81.0 - ACUTE CHOLECYSTITIS SNOMED Code(s): 18939091
[2021-03-06 11:21] LABS: African American GFR (CKD) 95.7 (60.0-200.0); Albumin 2.6 g/dL (3.8-4.9); Albumin/Globulin Ratio 1.24 (1.60-3.17); Anion Gap 9.6 mmol/L (10.00-18.00); BUN/Creat Ratio 7.5 Ratio (12.00-20.00); Blood Urea Nitrogen 4.5 mg/dL (9.0-27.0); Calcium 8.4 mg/dL (8.7-10.3); Carbon Dioxide 23.4 mmol/L (20.0-27.5); Globulin 2.1 g/dL (1.6-3.3); Non-African American GFR(CKD) 82.5 (60.0-200.0); Potassium 2.9 mmol/L (3.5-5.5); Total Bilirubin 0.3 mg/dL (0.30-1.20); Total Protein 4.7 g/dL (6.2-8.2)
[2021-03-06] MEDS ORDERED: POTASSIUM CHLORIDE ER 20 MEQ TAB.ER PO STA (12:34)
[2021-03-06] MEDS: POTASSIUM CHLORIDE 10 MEQ in WATER FOR INJECTION 1 100ML.BAG IVPB SCH ×2 (13:29→16:27)
[2021-03-06] MEDS ORDERED: Potassium Replacement Protocol 1 EACH MISC MISCELLANE PRN ×2 (14:20→21:12)
[2021-03-06] MEDS: POTASSIUM CHLORIDE ER 20 MEQ TAB.ER PO SCH ×4 (15:22→22:33)
--- NOTE | 2021-03-06 15:25 | PN ---
PROGRESS NOTE DATE OF SERVICE: 03/06/2021 REASON FOR FOLLOWUP: Cholecystitis, abdominal infection. INTERVAL HISTORY: Patient is afebrile. The patient is feeling better. Breathing comfortably. Abdominal pain is currently controlled. No chest pain, shortness of breath or cough. No diarrhea. PHYSICAL EXAMINATION: Blood pressure is a 115/77, pulse 68, temperature 97.6, she is 91% on room air. General description is an elderly female up in the chair in no distress. Respiratory system: Unlabored breathing, clear to auscultation anteriorly. Heart S1, S2. Regular rate and rhythm. Abdomen soft, no tenderness. LABS: Hemoglobin 10.4, white count 7.5, creatinine 0.3. DIAGNOSTIC PATIENT: This patient with abdominal infection from a perforated gangrenous cholecystitis, status post . The patient is covered with Unasyn to continue while inpatient, on discharge normalize and continue supportive care. MMODL / IJN: [id number] /
--- NOTE | 2021-03-06 18:41 | P.PN ---
Subjective Progress Note Date: 03/06/21 Nitza Arteaga, is an 86-year-old female patient of Dr. Valerio who presents to the ER with concerns of dehydration and vomiting. Patient has been residing at [facility] since recent hospitalization. Patient does have intermittent confusion and appears to be a poor historian. According to the ER record patient was initially transferred with concerns of altered mental status changes. According to ER record when family presented mental status changes were stated as chronic but really does express concern that patient had poor oral intake and persistent vomiting. Patient was recently admitted for CHF exacerbation. Additional medical history includes essential hypertension, hyperlipidemia and aortic valve replacement. Head CT was completed showing cerebral atrophy. No acute intracranial abnormality. Chest x-ray also completed showing cardiomegaly and parenchymal changes could reflect edema fibrosis correlate clinically significant change from recent x-ray. Abdominal x-ray completed showing gas- filled and mildly dilated small bowel could relate to ileus or partial mechanical obstruction small right pleural effusion. Patient also noted to have significant liver enzymes. He still appeared to be trending down amylase and lipase within normal limits. Creatinine slightly elevated at 1.24 and bun 66. Patient also having elevated at 23.8. This time will order ultrasound of gallbladder. Patient maintained on clear liquid diet. Surgical services also consulted for possible obstruction. Patient's abdomen distended but soft. Patient denies any nausea or vomiting at this time. Patient denies chest pain or shortness breath. Patient denies any urinary burning or frequency On 02/27/2021 patient was seen and examined on the medical floor she is alert, confused in no apparent distress, she denies any chest pain or shortness of breath, she has a known history of aortic stenosis, for which she had aortic valve replacement several years ago, she developed stenosis again in the aortic valve, which was severe on echocardiogram done last month, patient declined repeat surgery in the past . ejection fraction was normal at 55-60%, echocardiogram yesterday was normal , patient denies ever having any coronary artery disease or myocardial infarction. There is no medical contraindication for gallbladder surgery, however patient is at increased risk due to severe aortic stenosis. On review of systems there is no fever or chills no headache or dizziness no chest pain no shortness of breath no cough no nausea or vomiting no abdominal pain at this time and no urinary symptoms On 02/28/2021 patient is alert and oriented with intermittent episodes of confusion. Patient underwent open cholecystectomy yesterday with Dr. Mckinnon. Patient currently has 2 KATERIN drains surgical site dressing is clean dry and intact. Patient remains on clear liquid diet. Patient remains on IV Rocephin. Patient denies chest pain or shortness of breath. Patient denies nausea vomiting or diarrhea. Patient denies any urinary burning or frequency On 03/01/2021 patient was seen and examined on the telemetry floor she is alert and oriented 3 in no apparent distress there is no fever or chills no headache or dizziness no chest pain no shortness of breath no cough no nausea or vomiting no abdominal pain no diarrhea and no urinary symptoms. She underwent open cholecystectomy yesterday by Dr. Phan surgery are following medication and labs were reviewed continue with current management will follow in a.m. On 03/02/2021 patient is alert and oriented 3. Diet to be advanced per surgical services. Patient's tolerating diet. At this time patient denies chest pain or shortness breath. Patient denies nausea vomiting or diarrhea. Patient denies any urinary burning or frequency. On 03/03/2021 patient was seen and examined on the medical floor she is alert and oriented 3 in no apparent distress there is no fever or chills no headache or dizziness no chest pain no shortness of breath no cough no nausea or vomiting no abdominal pain no diarrhea and no urinary symptoms. Patient is improving gradually. Diet is being advanced slowly by surgery, plan for drain removal tomorrow, possible discharge tomorrow or the day after will continue to follow closely. On 03/04/2021 patient seen and examined on the medical floor, she is alert and oriented in no apparent distress pain over the last 24 hours, WBC increased from 10.5 to 19.3 right upper abdomen computed tomography scan of the abdomen and pelvis was ordered by his surgery of right upper quadrant fluid collection that my represent a phlegmon and evidence of small bowel ileus, at this point patient is not ready yet for discharge, continue with IV antibiotics, ID consult requested 03/05/2021 patient's alert and oriented. White blood cell been down to 12.1. Awaiting infectious disease input. Patient remains on IV Rocephin. Patient remains on clear liquid diet. Surgical services are following. Patient denies chest pain or shortness breath. Patient denies nausea vomiting or diarrhea. Patient denies any urinary burning or frequency. On 03/06/2021 patient was seen and examined on the medical floor she is alert and oriented 3 in no apparent distress she reports improvement in her abdominal pain there is no fever or chills no headache or dizziness no chest pain no shortness of breath no cough no nausea or vomiting no diarrhea no blood in the stools no burning with urination no frequency or urgency and no hematuria white blood count is improving Objective - Vital Signs Vital signs: Vital Signs Temp 97.6 F 03/06/21 05:00 Pulse 75 03/06/21 07:56 Resp 18 03/06/21 05:00 BP 158/74 03/06/21 07:56 Pulse Ox 99 03/06/21 05:00 Intake & Output 03/05/21 03/06/21 03/06/21 18:59 06:59 18:59 Intake Total 100 Output Total 60 40 Balance -60 60 Intake: Oral 100 Output: Drainage 60 40 Right Abdomen 60 40 Other: Voiding Method Toilet Toilet Diaper Diaper # Voids 2 1 # Bowel Movements 1 1 - Exam In general patient is alert and oriented ?-3 in no distress HEENT head normocephalic and atraumatic Neck is supple no JVD no goiter no lymphadenopathy no carotid bruit Chest examination is clear to auscultation no crackles no wheezing Cardiac exam reveals regular heart sounds S1 and S2 no gallops no murmurs Abdomen is soft slightly distended no organomegaly no palpable masses there is minimal tenderness in the right upper quadrant area normal bowel sounds Extremity exam reveals no edema no cyanosis or clubbing Neurological examination reveals no gross focal deficits - Labs CBC & Chem 7: 03/06/21 06:04 03/06/21 06:04 Labs: Abnormal Lab Results - Last 24 Hours (Table) 03/05/21 03/06/21 Range/Units 06:36 06:04 RBC 3.51 L (3.80-5.40) m/uL Hgb 10.3 L (11.4-16.0) gm/dL Hct 32.6 L (34.0-46.0) % RDW 15.8 H (11.5-15.5) % Potassium 3.1 L (3.5-5.5) mmol/L BUN 5.0 L (9.0-27.0) mg/dL BUN/Creatinine Ratio 7.94 L (12.00-20.00) Ratio Glucose 118 H (70-110) mg/dL Total Protein 4.8 L (6.2-8.2) g/dL Albumin 2.7 L (3.8-4.9) g/dL Albumin/Globulin Ratio 1.25 L (1.60-3.17) g/dL Assessment and Plan Assessment: 1. Nausea and vomiting secondary to acute cholecystitis. Patient was evaluated by surgery 2. Possible bowel obstruction. Surgical services have been consulted 3. Acute cholecystitis. Status post open cholecystectomy with Dr. mckinnon of 02/28/2020 4. History of diastolic CHF. No exacerbation at this time 5. Essential hypertension 6. History of hyperlipidemia 7. History of aortic valve replacement with a 10 years ago. There is evidence of severe aortic stenosis at this time the patient will follow up with cardiolo gy to decide whether she wants to proceed with further intervention 8. Leukocytosis. Patient remains on IV Rocephin infectious disease service is consulted CT of abdomen completed and reviewed per surgical services DVT prophylaxis Lovenox. GI prophylaxis Protonix Patient maintained on IV Rocephin Infectious disease service is consulted Surgical service is consulted
[2021-03-06] MEDS: ACETAMINOPHEN TAB 325 MG TAB PO PRN (19:47)
[2021-03-07] MEDS ORDERED: Potassium Replacement Protocol 1 EACH MISC MISCELLANE PRN (01:07)
[2021-03-07] MEDS: POTASSIUM CHLORIDE ER 20 MEQ TAB.ER PO SCH ×2 (01:26→02:24)
[2021-03-07] MEDS: METOCLOPRAMIDE 5 MG/ML 2 ML VIAL IVP SCH ×2 (01:26→09:00)
[2021-03-07] MEDS: AMPICILLIN-SULBACTAM 3 GM in SODIUM CHLORIDE 0.9% 100 ML IVPB SCH ×2 (05:45→11:47)
[2021-03-07] MEDS: ENOXAPARIN 40 MG/0.4 ML SYRINGE SQ SCH (08:59)
[2021-03-07] MEDS: METOPROLOL SUCCINATE (ER) 25 MG TAB.ER.24H PO SCH (08:59)
[2021-03-07] MEDS: lisinopriL 5 MG TAB PO SCH (08:59)
[2021-03-07] MEDS: PANTOPRAZOLE 40 MG TABLET PO SCH (08:59)
[2021-03-07 09:22] LABS: Anisocytosis Slight; Basophils % (A) 0 %; Eosinophils # (A) 0.2 k/uL (0-0.7); Eosinophils % (A) 4 %; HCT 33.2 % (34.0-46.0); HGB 10.3 gm/dL (11.4-16.0); Hypochromasia Moderate; Lymphocytes # (A) 0.6 k/uL (1.0-4.8); Lymphocytes % (A) 11 %; MCH 29.2 pg (25.0-35.0); MCHC 30.9 g/dL (31.0-37.0); MCV 94.3 fL (80.0-100.0); Monocytes # (A) 0.3 k/uL (0-1.0); Monocytes % (A) 5 %; Neutrophils # (A) 4.5 k/uL (1.3-7.7); Neutrophils % (A) 78 %; Platelet Count 233 k/uL (150-450); RBC 3.52 m/uL (3.80-5.40); RDW 16.1 % (11.5-15.5); WBC 5.8 k/uL (3.8-10.6)
[2021-03-07] MEDS ORDERED: POTASSIUM CHLORIDE ER 20 MEQ TAB.ER PO STA (09:45)
--- NOTE | 2021-03-07 10:04 | P.PN ---
Subjective Progress Note Date: 03/06/21 Nitza Arteaga, is an 86-year-old female patient of Dr. Valerio who presents to the ER with concerns of dehydration and vomiting. Patient has been residing at [facility] since recent hospitalization. Patient does have intermittent confusion and appears to be a poor historian. According to the ER record patient was initially transferred with concerns of altered mental status changes. According to ER record when family presented mental status changes were stated as chronic but really does express concern that patient had poor oral intake and persistent vomiting. Patient was recently admitted for CHF exacerbation. Additional medical history includes essential hypertension, hyperlipidemia and aortic valve replacement. Head CT was completed showing cerebral atrophy. No acute intracranial abnormality. Chest x-ray also completed showing cardiomegaly and parenchymal changes could reflect edema fibrosis correlate clinically significant change from recent x-ray. Abdominal x-ray completed showing gas- filled and mildly dilated small bowel could relate to ileus or partial mechanical obstruction small right pleural effusion. Patient also noted to have significant liver enzymes. He still appeared to be trending down amylase and lipase within normal limits. Creatinine slightly elevated at 1.24 and bun 66. Patient also having elevated at 23.8. This time will order ultrasound of gallbladder. Patient maintained on clear liquid diet. Surgical services also consulted for possible obstruction. Patient's abdomen distended but soft. Patient denies any nausea or vomiting at this time. Patient denies chest pain or shortness breath. Patient denies any urinary burning or frequency On 02/27/2021 patient was seen and examined on the medical floor she is alert, confused in no apparent distress, she denies any chest pain or shortness of breath, she has a known history of aortic stenosis, for which she had aortic valve replacement several years ago, she developed stenosis again in the aortic valve, which was severe on echocardiogram done last month, patient declined repeat surgery in the past . ejection fraction was normal at 55-60%, echocardiogram yesterday was normal , patient denies ever having any coronary artery disease or myocardial infarction. There is no medical contraindication for gallbladder surgery, however patient is at increased risk due to severe aortic stenosis. On review of systems there is no fever or chills no headache or dizziness no chest pain no shortness of breath no cough no nausea or vomiting no abdominal pain at this time and no urinary symptoms On 02/28/2021 patient is alert and oriented with intermittent episodes of confusion. Patient underwent open cholecystectomy yesterday with Dr. Mckinnon. Patient currently has 2 KATERIN drains surgical site dressing is clean dry and intact. Patient remains on clear liquid diet. Patient remains on IV Rocephin. Patient denies chest pain or shortness of breath. Patient denies nausea vomiting or diarrhea. Patient denies any urinary burning or frequency On 03/01/2021 patient was seen and examined on the telemetry floor she is alert and oriented 3 in no apparent distress there is no fever or chills no headache or dizziness no chest pain no shortness of breath no cough no nausea or vomiting no abdominal pain no diarrhea and no urinary symptoms. She underwent open cholecystectomy yesterday by Dr. Phan surgery are following medication and labs were reviewed continue with current management will follow in a.m. On 03/02/2021 patient is alert and oriented 3. Diet to be advanced per surgical services. Patient's tolerating diet. At this time patient denies chest pain or shortness breath. Patient denies nausea vomiting or diarrhea. Patient denies any urinary burning or frequency. On 03/03/2021 patient was seen and examined on the medical floor she is alert and oriented 3 in no apparent distress there is no fever or chills no headache or dizziness no chest pain no shortness of breath no cough no nausea or vomiting no abdominal pain no diarrhea and no urinary symptoms. Patient is improving gradually. Diet is being advanced slowly by surgery, plan for drain removal tomorrow, possible discharge tomorrow or the day after will continue to follow closely. On 03/04/2021 patient seen and examined on the medical floor, she is alert and oriented in no apparent distress pain over the last 24 hours, WBC increased from 10.5 to 19.3 right upper abdomen computed tomography scan of the abdomen and pelvis was ordered by his surgery of right upper quadrant fluid collection that my represent a phlegmon and evidence of small bowel ileus, at this point patient is not ready yet for discharge, continue with IV antibiotics, ID consult requested 03/05/2021 patient's alert and oriented. White blood cell been down to 12.1. Awaiting infectious disease input. Patient remains on IV Rocephin. Patient remains on clear liquid diet. Surgical services are following. Patient denies chest pain or shortness breath. Patient denies nausea vomiting or diarrhea. Patient denies any urinary burning or frequency. On 03/06/2021 patient's alert and oriented white blood cell has normalized. Patient has been tolerating diet. Anticipate discharge in the next 24-48 hours. Patient denies chest pain or shortness breath. Denies nausea vomiting or diarrhea. Denies any urinary burning Objective - Vital Signs Vital signs: Vital Signs Temp 97.6 F 03/06/21 11:36 Pulse 68 03/06/21 11:36 Resp 18 03/06/21 11:36 BP 116/77 03/06/21 11:36 Pulse Ox 91 L 03/06/21 11:36 Intake & Output 03/05/21 03/06/21 03/06/21 18:59 06:59 18:59 Intake Total 100 Output Total 60 40 Balance -60 60 Intake: Oral 100 Output: Drainage 60 40 Right Abdomen 60 40 Other: Voiding Method Toilet Toilet Diaper Diaper # Voids 2 1 # Bowel Movements 1 1 - Exam In general patient is alert and oriented ?-3 in no distress HEENT head normocephalic and atraumatic Neck is supple no JVD no goiter no lymphadenopathy no carotid bruit Chest examination is clear to auscultation no crackles no wheezing Cardiac exam reveals regular heart sounds S1 and S2 no gallops no murmurs Abdomen is soft slightly distended no organomegaly no palpable masses there is minimal tenderness in the right upper quadrant area normal bowel sounds Extremity exam reveals no edema no cyanosis or clubbing Neurological examination reveals no gross focal deficits - Labs CBC & Chem 7: 03/07/21 09:05 03/07/21 00:28 Labs: Abnormal Lab Results - Last 24 Hours (Table) 03/06/21 03/06/21 Range/Units 06:04 06:04 RBC 3.51 L (3.80-5.40) m/uL Hgb 10.3 L (11.4-16.0) gm/dL Hct 32.6 L (34.0-46.0) % RDW 15.8 H (11.5-15.5) % Potassium 2.9 L (3.5-5.5) mmol/L Anion Gap 9.60 L (10.00-18.00) mmol/L BUN 4.5 L (9.0-27.0) mg/dL BUN/Creatinine Ratio 7.50 L (12.00-20.00) Ratio Glucose 114 H (70-110) mg/dL Calcium 8.4 L (8.7-10.3) mg/dL Total Protein 4.7 L (6.2-8.2) g/dL Albumin 2.6 L (3.8-4.9) g/dL Albumin/Globulin Ratio 1.24 L (1.60-3.17) g/dL Assessment and Plan Assessment: 1. Nausea and vomiting secondary to acute cholecystitis. Patient was evaluated by surgery 2. Possible bowel obstruction. Surgical services have been consulted 3. Acute cholecystitis. Status post open cholecystectomy with Dr. mckinnon of 02/28/2020 4. History of diastolic CHF. No exacerbation at this time 5. Essential hypertension 6. History of hyperlipidemia 7. History of aortic valve replacement with a 10 years ago. There is evidence of severe aortic stenosis at this time the patient will follow up with cardiology to decide whether she wants to proceed with further intervention 8. Leukocytosis. Patient remains on IV Rocephin infectious disease service is consulted CT of abdomen completed and reviewed per surgical services DVT prophylaxis Lovenox. GI prophylaxis Protonix Patient maintained on IV Rocephin Infectious disease service is consulted Surgical service is consulted
--- NOTE | 2021-03-07 10:05 | P.DS ---
Providers Date of admission: 02/25/21 18:15 Expected date of discharge: 03/07/21 Attending physician: Negar Calderon Consults: 02/26/21 09:18 Consult Physician Routine Consulting Provider: Juve Phan Consult Reason/Comments: vomitting, bowel obstruction Do you want consulting provider notified?: Yes 03/04/21 15:44 Consult Physician Routine Consulting Provider: Princess Randhawa Consult Reason/Comments: abd infection Do you want consulting provider notified?: Yes Primary care physician: Kiara Valerio Hospital Course: Discharge diagnosis 1. Nausea and vomiting secondary to acute cholecystitis. Patient was evaluated by surgery 2. Possible bowel obstruction. Surgical services have been consulted 3. Acute cholecystitis. Status post open cholecystectomy with Dr. mckinnon of 02/28/2020 4. History of diastolic CHF. No exacerbation at this time 5. Essential hypertension 6. History of hyperlipidemia 7. History of aortic valve replacement with a 10 years ago. There is evidence of severe aortic stenosis at this time the patient will follow up with cardiology to decide whether she wants to proceed with further intervention 8. Leukocytosis. Patient remains on IV Rocephin infectious disease service is consulted CT of abdomen completed and reviewed per surgical services resolved Hospital course Nitza Arteaga, is an 86-year-old female patient of Dr. Valerio who presents to the ER with concerns of dehydration and vomiting. Patient has been residing at [facility] since recent hospitalization. Patient does have intermittent confusion and appears to be a poor historian. According to the ER record patient was initially transferred with concerns of altered mental status changes. According to ER record when family presented mental status changes were stated as chronic but really does express concern that patient had poor oral intake and persistent vomiting. Patient was recently admitted for CHF exacerbation. Additional medical history includes essential hypertension, hyperlipidemia and aortic valve replacement. Head CT was completed showing cerebral atrophy. No acute intracranial abnormality. Chest x-ray also completed showing cardiomegaly and parenchymal changes could reflect edema fibrosis correlate clinically significant change from recent x-ray. Abdominal x-ray completed showing gas- filled and mildly dilated small bowel could relate to ileus or partial mechanical obstruction small right pleural effusion. Patient also noted to have significant liver enzymes. He still appeared to be trending down amylase and lipase within normal limits. Creatinine slightly elevated at 1.24 and bun 66. Patient also having elevated at 23.8. This time will order ultrasound of gallbl adder. Patient maintained on clear liquid diet. Surgical services also consulted for possible obstruction. Patient's abdomen distended but soft. Patient denies any nausea or vomiting at this time. Patient denies chest pain or shortness breath. Patient denies any urinary burning or frequency On 02/27/2021 patient was seen and examined on the medical floor she is alert, confused in no apparent distress, she denies any chest pain or shortness of breath, she has a known history of aortic stenosis, for which she had aortic valve replacement several years ago, she developed stenosis again in the aortic valve, which was severe on echocardiogram done last month, patient declined repeat surgery in the past . ejection fraction was normal at 55-60%, echocardiogram yesterday was normal , patient denies ever having any coronary artery disease or myocardial infarction. There is no medical contraindication for gallbladder surgery, however patient is at increased risk due to severe aortic stenosis. On review of systems there is no fever or chills no headache or dizziness no chest pain no shortness of breath no cough no nausea or vomiting no abdominal pain at this time and no urinary symptoms On 02/28/2021 patient is alert and oriented with intermittent episodes of confusion. Patient underwent open cholecystectomy yesterday with Dr. Mckinnon. Patient currently has 2 KATERIN drains surgical site dressing is clean dry and intact. Patient remains on clear liquid diet. Patient remains on IV Rocephin. Patient denies chest pain or shortness of breath. Patient denies nausea vomiting or diarrhea. Patient denies any urinary burning or frequency On 03/01/2021 patient was seen and examined on the telemetry floor she is alert and oriented 3 in no apparent distress there is no fever or chills no headache or dizziness no chest pain no shortness of breath no cough no nausea or vomiting no abdominal pain no diarrhea and no urinary symptoms. She underwent open cholecystectomy yesterday by Dr. Phan surgery are following medication and labs were reviewed continue with current management will follow in a.m. On 03/02/2021 patient is alert and oriented 3. Diet to be advanced per surgic al services. Patient's tolerating diet. At this time patient denies chest pain or shortness breath. Patient denies nausea vomiting or diarrhea. Patient denies any urinary burning or frequency. On 03/03/2021 patient was seen and examined on the medical floor she is alert and oriented 3 in no apparent distress there is no fever or chills no headache or dizziness no chest pain no shortness of breath no cough no nausea or vomiting no abdominal pain no diarrhea and no urinary symptoms. Patient is improving gradually. Diet is being advanced slowly by surgery, plan for drain removal tomorrow, possible discharge tomorrow or the day after will continue to follow closely. On 03/04/2021 patient seen and examined on the medical floor, she is alert and oriented in no apparent distress pain over the last 24 hours, WBC increased from 10.5 to 19.3 right upper abdomen computed tomography scan of the abdomen and pelvis was ordered by his surgery of right upper quadrant fluid collection that my represent a phlegmon and evidence of small bowel ileus, at this point patient is not ready yet for discharge, continue with IV antibiotics, ID consult requested 03/05/2021 patient's alert and oriented. White blood cell been down to 12.1. Awaiting infectious disease input. Patient remains on IV Rocephin. Patient remains on clear liquid diet. Surgical services are following. Patient denies chest pain or shortness breath. Patient denies nausea vomiting or diarrhea. Patient denies any urinary burning or frequency. On 03/07/2021 patient is alert and oriented 3 currently eating breakfast. Patient has been tolerating diet. White blood cell has normalized to 5.8. Patient will be DC'd today to assisted living facility. Patient denies chest pain or shortness of breath. Patient denies nausea vomiting or diarrhea. Patient denies any urinary burning or frequency. Patient will be DC'd on Augmentin Patient Condition at Discharge: Stable Plan - Discharge Summary New Discharge Prescriptions: New Acetaminophen Tab [Tylenol] 650 mg PO Q4HR PRN tab PRN Reason: Fever and/ or Mild Pain traMADol HCl [Ultram] 50 mg PO Q6HR PRN tab PRN Reason: Breakthrough Pain Amoxicillin/Potassium Clav [Augmentin 500-125 Tablet] 1 tab PO Q12HR 10 Days #20 tab Continue Omeprazole 20 mg PO DAILY@0600 Metoprolol Succinate (ER) [Toprol XL] 25 mg PO DAILY@0900 Simvastatin [Zocor] 40 mg PO HS@2100 Ammonium Lactate Lotion [Lac-Hydrin 12% Lotion] 1 applic TOPICAL Q12H Potassium Chloride ER [K-Dur 20] 20 meq PO DAILY@0900 PARoxetine HCL [Paxil] 40 mg PO DAILY@0900 Bismuth Subsalicylate [Pepto-Bismol] 524 mg PO Q4H PRN PRN Reason: Nausea lisinopriL [Zestril] 5 mg PO BID@0900,2100 Furosemide [Lasix] 20 mg PO BID@0600,1400 Discharge Medication List Metoprolol Succinate (ER) [Toprol XL] 25 mg PO DAILY@0902/07/21 [History] Omeprazole 20 mg PO DAILY@0602/07/21 [History] PARoxetine HCL [Paxil] 40 mg PO DAILY@0902/07/21 [History] Simvastatin [Zocor] 40 mg PO HS@209902/07/21 [History] Ammonium Lactate Lotion [Lac-Hydrin 12% Lotion] 1 applic TOPICAL Q12H 02/25/21 [History] Bismuth Subsalicylate [Pepto-Bismol] 524 mg PO Q4H PRN 02/25/21 [History] Furosemide [Lasix] 20 mg PO BID@0600,1400 02/25/21 [History] Potassium Chloride ER [K-Dur 20] 20 meq PO DAILY@0902/25/21 [History] lisinopriL [Zestril] 5 mg PO BID@0900,209902/25/21 [History] Acetaminophen Tab [Tylenol] 650 mg PO Q4HR PRN tab 03/06/21 [Rx] Amoxicillin/Potassium Clav [Augmentin 500-125 Tablet] 1 tab PO Q12HR 10 Days #20 tab 03/06/21 [Rx] traMADol HCl [Ultram] 50 mg PO Q6HR PRN tab 03/06/21 [Rx] Follow up Appointment(s)/Referral(s): Juve Phan MD [Medical Doctor] - 1 Week Kiara Valerio MD [Primary Care Provider] - 1-2 days [facility], [NON-STAFF] - 1-2 Days Activity/Diet/Wound Care/Special Instructions: NURSING Please print off the Discharge Summary and send with the patient. [facility] requires the [facility] Rec to be signed by the physician for discharge Please Call [facility] when discharged. They will arrange transportation Discharge Disposition: OTHER INSTITUTION NOT DEFINED
[2021-03-07] MEDS: SODIUM CHLORIDE 0.9% 1,000 ML IV SCH (10:43)
[2021-03-07 11:10] LABS: Anion Gap 8.7 mmol/L (10.00-18.00); BUN/Creat Ratio 6.79 Ratio (12.00-20.00); Blood Urea Nitrogen 4.7 mg/dL (9.0-27.0); Carbon Dioxide 25.9 mmol/L (20.0-27.5)
[2021-03-07 11:11] LABS: African American GFR (CKD) 91.4 (60.0-200.0); Calcium 8.6 mg/dL (8.7-10.3); Non-African American GFR(CKD) 78.9 (60.0-200.0)
--- NOTE | 2021-03-07 11:32 | P.PN ---
<Ladonna Prince - Last Filed: 03/07/21 11:29> Subjective Progress Note Date: 03/07/21 CHIEF COMPLAINT: Abdominal pain HISTORY OF PRESENT ILLNESS: Patient status post diagnostic laparoscopy with conversion to open cholecystectomy for acute gangrenous cholecystitis with perforation. POD#8. Patient lying in bed. She denies any abdominal pain. Denies any nausea or vomiting. She has been tolerating diet. She is having bowel movements. She is afebrile. WBC is 5.8 potassium has shown improvement from 2.9-4.0 KATERIN drain was removed yesterday PHYSICAL EXAM: VITAL SIGNS: Reviewed. GENERAL: Well-developed in no acute distress. HEENT: No sclera icterus. Extraocular movements grossly intact. Moist buccal mucosa. Head is atraumatic, normocephalic. ABDOMEN: Soft. Nondistended. Nontender. Incision site clean dry and intact. NEUROLOGIC: Pleasantly confused ASSESSMENT: 1. Acute gangrenous cholecystitis with perforation status post diagnostic laparoscopy with conversion to open cholecystectomy 2. Postoperative Ileus improving 3. Leukocytosis 4. Hypokalemia resolved 5. Hypomagnesemia improved 6. Small amount of free air noted on x-ray and CAT scan is post surgical PLAN: -Patient can be discharge from surgical standpoint -Patient follow-up with Dr. Patel in 1 week -Patient can either leave the incision open to dry or place gauze over incision -continue low-fat diet -Continue antibiotics per ID service Physician Yeast Stacker note has been reviewed by physician. Signing provider agrees with the documented findings, assessment, and plan of care. Objective - Vital Signs Vital signs: Vital Signs Temp 97.3 F L 03/07/21 04:10 Pulse 106 H 03/07/21 09:00 Resp 18 03/07/21 04:10 BP 178/73 03/07/21 09:00 Pulse Ox 99 03/07/21 04:10 Intake & Output 03/06/21 03/07/21 03/07/21 18:59 06:59 18:59 Intake Total 200 680 Balance 200 680 Weight 68.039 kg Intake: Intake, IV Titration 200 440 Amount Ampicillin-Sulbactam 3 gm 200 200 In Sodium Chloride 0.9% 100 ml @ 200 mls/hr IVPB Q6HR [facility] Rx#:[id number] IV Fluid Continuation 800 240 ml @ 0 mls/hr IV .STK- MED ONE Rx#:[id number] Oral 240 Other: Voiding Method Toilet Diaper # Voids 5 1 # Bowel Movements 1 - Labs CBC & Chem 7: 03/07/21 09:05 03/07/21 07:29 Labs: Abnormal Lab Results - Last 24 Hours (Table) 03/06/21 03/07/21 03/07/21 Range/Units 20:31 07:29 09:05 RBC 3.52 L (3.80-5.40) m/uL Hgb 10.3 L (11.4-16.0) gm/dL Hct 33.2 L (34.0-46.0) % MCHC 30.9 L (31.0-37.0) g/dL RDW 16.1 H (11.5-15.5) % Lymphocytes # 0.6 L (1.0-4.8) k/uL Potassium 3.4 L (3.5-5.1) mmol/L Anion Gap 8.70 L (10.00-18.00) mmol/L BUN 4.7 L (9.0-27.0) mg/dL BUN/Creatinine Ratio 6.79 L (12.00-20.00) Ratio Glucose 129 H (70-110) mg/dL Calcium 8.6 L (8.7-10.3) mg/dL <Juve Phan - Last Filed: 03/07/21 14:12> Subjective I have personally seen and examined the patient, reviewed the [employer] /PAs history, exam and MDM and agree with the assessment and plan as written. Based on total visit time, I have performed more than 50% of the visit. Patient without new complaints. No nausea or vomiting. Tolerating diet. No pain. Drain was removed. Follow-up after discharge. Objective - Vital Signs Vital signs: Vital Signs Temp 98.2 F 03/07/21 13:00 Pulse 75 03/07/21 13:00 Resp 16 03/07/21 13:00 BP 179/76 03/07/21 13:00 Pulse Ox 93 L 03/07/21 13:00 Intake & Output 03/06/21 03/07/21 03/07/21 18:59 06:59 18:59 Intake Total 200 680 Balance 200 680 Weight 68.039 kg Intake: Intake, IV Titration 200 440 Amount Ampicillin-Sulbactam 3 gm 200 200 In Sodium Chloride 0.9% 100 ml @ 200 mls/hr IVPB Q6HR [facility] Rx#:[id number] IV Fluid Continuation 800 240 ml @ 0 mls/hr IV .STK- [facility] ONE Rx#:[id number] Oral 240 Other: Voiding Method Toilet Diaper # Voids 5 1 # Bowel Movements 1 - Labs CBC & Chem 7: 03/07/21 09:05 03/07/21 07:29 Labs: Abnormal Lab Results - Last 24 Hours (Table) 03/06/21 03/07/21 03/07/21 Range/Units 20:31 07:29 09:05 RBC 3.52 L (3.80-5.40) m/uL Hgb 10.3 L (11.4-16.0) gm/dL Hct 33.2 L (34.0-46.0) % MCHC 30.9 L (31.0-37.0) g/dL RDW 16.1 H (11.5-15.5) % Lymphocytes # 0.6 L (1.0-4.8) k/uL Potassium 3.4 L (3.5-5.1) mmol/L Anion Gap 8.70 L (10.00-18.00) mmol/L BUN 4.7 L (9.0-27.0) mg/dL BUN/Creatinine Ratio 6.79 L (12.00-20.00) Ratio Glucose 129 H (70-110) mg/dL Calcium 8.6 L (8.7-10.3) mg/dL Assessment and Plan (1) Acute gangrenous cholecystitis Current Visit: Yes Status: Acute Code(s): K81.0 - ACUTE CHOLECYSTITIS SNOMED Code(s): 97412958
[2021-03-07 13:40] VITALS: BP 179/76; PULSE 75; RESP 16; TEMP 98.2
--- NOTE | 2021-03-07 15:44 | PN ---
PROGRESS NOTE DATE OF SERVICE: 03/07/2021. REASON FOR FOLLOWUP: Gangrenous cholecystitis, abdominal infection. INTERVAL HISTORY: The patient is afebrile. The patient has been breathing comfortably on room air. Denies any chest pain, shortness of breath or cough. Abdominal pain is currently No nausea or vomiting. No diarrhea. PHYSICAL EXAMINATION: Blood pressure 169/76, pulse of 75, temperature 98.2. General description is an elderly female up in the bed in no distress. Respiratory system: Unlabored breathing, clear to auscultation. Heart S1, S2 regular rate and rhythm. Abdomen soft, mildly distended. No guarding or rigidity. LABS: Hemoglobin is 10.3, white count 5.8, creatinine 0.7. DIAGNOSTIC IMPRESSION AND PLAN: Patient with gangrenous cholecystitis status post cholecystectomy. Abdominal infection perforation overall improvement with for a short course with close outpatient followup as per discussion with the admitting team. Continue supportive care. MMODL / IJN: [id number] /
[2021-03-08 09:40] LABS: Albumin 2.9 g/dL (3.8-4.9); Albumin/Globulin Ratio 1.45 (1.60-3.17); Total Bilirubin 0.3 mg/dL (0.30-1.20); Total Protein 4.9 g/dL (6.2-8.2)
== END 2021-03-07 14:30 | disposition other institution (70) | DRG 415 ==
LOC: EC 15:16 → 3NCARDOBS 18:15 → 5NMEDONC 02-27 16:30
PROVIDERS: ADMIT Internal Medicine; ATTEND Internal Medicine
PROC: 0FT40ZZ Resection of Gallbladder, Open Approach (ICD-10-PCS; principal; 2021-02-25)
PROC: 0W9F30Z Drainage of Abdominal Wall with Drainage Device, Percutaneous Approach (ICD-10-PCS; 2021-02-25)
PROC: 0FJ44ZZ Inspection of Gallbladder, Percutaneous Endoscopic Approach (ICD-10-PCS; 2021-02-25)
DX: K80.00 Calculus of gallbladder with acute cholecystitis without obstruction (principal); I50.32 Chronic diastolic (congestive) heart failure; K56.609 Unspecified intestinal obstruction, unspecified as to partial versus complete obstruction; K82.A2 Perforation of gallbladder in cholecystitis; K56.7 Ileus, unspecified; K91.89 Other postprocedural complications and disorders of digestive system; E86.0 Dehydration; E78.5 Hyperlipidemia, unspecified; E83.42 Hypomagnesemia; E87.6 Hypokalemia; I11.0 Hypertensive heart disease with heart failure; I35.0 Nonrheumatic aortic (valve) stenosis; K82.8 Other specified diseases of gallbladder; K82.A1 Gangrene of gallbladder in cholecystitis; Z95.2 Presence of prosthetic heart valve; Z82.49 Family history of ischemic heart disease and other diseases of the circulatory system; Z79.899 Other long term (current) drug therapy; Z53.31 Laparoscopic surgical procedure converted to open procedure; K21.9 Gastro-esophageal reflux disease without esophagitis
CPT/HCPCS: 36415; 70450; 71046; 74018; 74019; 74176; 74177; 76705; 80048; 80053; 80306; 81001; 82150; 83690; 83735; 84132; 84484; 85025; 85610; 85730; 87040; 87635; 88304; 93005; 99285

== ENCOUNTER 2022-08-20 18:39 | Inpatient (IN) | payer MEDICARE ==
[2022-08-20 19:42] LABS: Basophils % (A) 1 %; Eosinophils # (A) 0.1 k/uL (0-0.7); Eosinophils % (A) 1 %; HCT 35.3 % (34.0-46.0); HGB 11.8 gm/dL (11.4-16.0); Lymphocytes # (A) 0.7 k/uL (1.0-4.8); Lymphocytes % (A) 14 %; MCHC 33.3 g/dL (31.0-37.0); Mean Platelet Volume 10.4; Monocytes # (A) 0.4 k/uL (0-1.0); Monocytes % (A) 8 %; Neutrophils # (A) 3.6 k/uL (1.3-7.7); Neutrophils % (A) 74 %; Platelet Count 112 k/uL (150-450); RBC 3.93 m/uL (3.80-5.40); RDW 14.5 % (11.5-15.5); WBC 4.9 k/uL (3.8-10.6)
[2022-08-20 19:51] LABS: Prothrombin Time 10.1 sec (9.0-12.0)
--- NOTE | 2022-08-20 19:59 | XR ---
EXAMINATION TYPE: XR chest 2V DATE OF EXAM: 08/20/2022 COMPARISON: 02/25/2021 HISTORY: Shortness of breath TECHNIQUE: Frontal and lateral views of the chest are obtained. FINDINGS: Scattered senescent parenchymal changes noted. Hyperinflation compatible with COPD. Cardiomegaly with pulmonary venous congestion and scattered infiltrates as well as small right-sided pleural effusion suggestive of congestive failure. Infiltrates of other etiology not excluded. Mediastinal structures are stable and grossly unremarkable. No evidence for hilar prominence. Degenerative changes dorsal spine. IMPRESSION: 1. Cardiomegaly with pulmonary venous congestion and scattered infiltrates as well as small right-sheldon ed pleural effusion suggestive of congestive failure. Infiltrates of other etiology not excluded.
[2022-08-20 20:00] LABS: ALT 16 U/L (4-34); AST 25 U/L (14-36); African American GFR (CKD) 48 (>60 ml/min/1.73 sqM); Albumin 3.8 g/dL (3.5-5.0); Alkaline Phosphatase 71 U/L (38-126); Anion Gap 8 mmol/L; Blood Urea Nitrogen 31 mg/dL (7-17); Calcium 9.6 mg/dL (8.4-10.2); Carbon Dioxide 27 mmol/L (22-30); Chloride 99 mmol/L (98-107); Glucose 131 mg/dL (74-99); Non-African American GFR(CKD) 42 (>60 ml/min/1.73 sqM); Potassium 4.3 mmol/L (3.5-5.1); Sodium 134 mmol/L (137-145); Total Bilirubin 0.5 mg/dL (0.2-1.3); Total Protein 6.7 g/dL (6.3-8.2)
--- NOTE | 2022-08-20 20:45 | ED ---
General Adult HPI - General Chief complaint: Shortness of Breath Stated complaint: Flu Time Seen by Provider: 08/20/22 18:46 Source: patient, family (Patient's niece), EMS, RN notes reviewed Mode of arrival: EMS Limitations: altered mental status - History of Present Illness Initial comments: 87-year-old female presents to the emergency department for chief complaint of increased shortness of breath over the past week. Past medical history includes CHF, CAD, hypertension, hyperlipidemia. Patient states that her shortness of breath is worse when she lays down in bed at night and during her daily walks. She also reports cough. She reports some fullness in her abdomen and lower extremity edema. Denies fever, chills. - Related Data Home Medications Medication Instructions Recorded Confirmed Metoprolol Succinate (ER) [Toprol 25 mg PO DAILY@0900 02/07/21 02/25/21 XL] Omeprazole 20 mg PO DAILY@0600 02/07/21 02/25/21 PARoxetine HCL [Paxil] 40 mg PO DAILY@0900 02/07/21 02/25/21 Ammonium Lactate Lotion 1 applic TOPICAL Q12H 02/25/21 02/25/21 [Lac-Hydrin 12% Lotion] Bismuth Subsalicylate 524 mg PO Q4H PRN 02/25/21 02/25/21 [Pepto-Bismol] Furosemide [Lasix] 20 mg PO BID@0600,1400 02/25/21 02/25/21 Potassium Chloride ER [K-Dur 20] 20 meq PO DAILY@0900 02/25/21 02/25/21 Albuterol Nebulized [Ventolin 2.5 mg INHALATION RT-TID 08/20/22 08/20/22 Nebulized] Atorvastatin Calcium [Lipitor] 40 mg PO DIRECTED 08/20/22 08/20/22 Cholecalciferol [Vitamin D3 (125 125 mcg PO DAILY 08/20/22 08/20/22 Mcg = 5000 Iu)] Divalproex [Depakote] 250 mg PO DAILY 08/20/22 08/20/22 Donepezil [Aricept] 5 mg PO HS 08/20/22 08/20/22 Furosemide [Lasix] 40 mg PO DAILY 08/20/22 08/20/22 Hydrocortisone Cream 1 applic TOPICAL BID 08/20/22 08/20/22 [Hydrocortisone 2.5% Cream] Latanoprost [Latanoprost 0.005%] 1 drop RIGHT EYE HS 08/20/22 08/20/22 Memantine [Namenda] 5 mg PO BID 08/20/22 08/20/22 Nystatin 100,000Unit/gm Cream 1 applic TOPICAL BID 08/20/22 08/20/22 [Mycostatin Cream] Sennosides [Senokot] 8.6 mg PO BID 08/20/22 08/20/22 lisinopriL [Zestril] 20 mg PO DAILY PRN 08/20/22 08/20/22 Previous Rx's Medication Instructions Recorded Acetaminophen Tab [Tylenol] 650 mg PO Q4HR PRN tab 03/06/21 traMADol HCl [Ultram] 50 mg PO Q6HR PRN tab 03/06/21 Allergies Allergy/AdvReac Type Severity Reaction Status Date / Time No Known Allergies Allergy Verified 08/20/22 22:49 Review of Systems ROS Statement: Those systems with pertinent positive or pertinent negative responses have been documented in the HPI. ROS Other: All systems not noted in ROS Statement are negative. Past Medical History Past Medical History: Coronary Artery Disease (CAD), Heart Failure, GERD/Reflux, Hyperlipidemia, Hypertension Additional Past Medical History / Comment(s): , AORTIC VALVE REPLACEMENT 10 YEARS AGO History of Any Multi-Drug Resistant Organisms: None Reported Past Surgical History: Cardiac Valve Replacement Past Anesthesia/Blood Transfusion Reactions: No Reported Reaction Past Psychological History: No Psychological Hx Reported Smoking Status: Never smoker Past Alcohol Use History: None Reported Past Drug Use History: None Reported - Past Family History Mother Family Medical History: Hypertension General Exam Limitations: no limitations General appearance: alert, in no apparent distress Head exam: Present: atraumatic, normocephalic, normal inspection Eye exam: Present: normal appearance, PERRL, EOMI. Absent: scleral icterus, conjunctival injection, periorbital swelling ENT exam: Present: normal exam, mucous membranes moist Neck exam: Present: normal inspection. Absent: tenderness, meningismus, lymphadenopathy Respiratory exam: Present: wheezes, rhonchi. Absent: respiratory distress, chest wall tenderness, accessory muscle use Cardiovascular Exam: Present: regular rate, normal rhythm, normal heart sounds. Absent: systolic murmur, diastolic murmur, rubs, gallop, clicks GI/Abdominal exam: Present: soft, normal bowel sounds. Absent: distended, tenderness, guarding, rebound, rigid Extremities exam: Present: normal inspection, full ROM, normal capillary refill, other (1+ pitting edema). Absent: tenderness, pedal edema, joint swelling, calf tenderness Back exam: Present: normal inspection Neurological exam: Present: alert, oriented X3 Psychiatric exam: Present: normal affect, normal mood Skin exam: Present: warm, dry, intact, normal color. Absent: rash Course Vital Signs 08/20/22 08/20/22 08/20/22 19:01 20:05 22:00 Temperature 97.6 F Pulse Rate 57 L 60 62 Respiratory 22 20 20 Rate Blood Pressure 124/111 121/65 131/83 O2 Sat by Pulse 95 97 94 L Oximetry 08/20/22 23:00 Temperature Pulse Rate 65 Respiratory 20 Rate Blood Pressure 151/66 O2 Sat by Pulse 98 Oximetry Medical Decision Making - Medical Decision Making Was pt. sent in by a medical professional or institution (Dr. PA, TAX REPRESENTATIVE, urgent care, hospital, or fdc...) When possible be specific @ -No Did you speak to anyone other than the patient for history (EMS, parent, family, police, friend...)? What history was obtained from this source @ -No Did you review nursing and triage notes (agree or disagree)? Why? @ -I reviewed and agree with nursing and triage notes Were old charts reviewed (outside hosp., previous admission, EMS record, old EKG, old radiological studies, urgent care reports/EKG's, fdc records)? Report findings @ -No old charts were reviewed Differential Diagnosis (chest pain, altered mental status, abdominal pain women, abdominal pain men, vaginal bleeding, weakness, fever, dyspnea, syncope, headache, dizziness, GI bleed, back pain, seizure, CVA, palpatations, mental health, musculoskeletal)? @ -Differential Dyspnea: Coronary syndrome, arrhythmia, tamponade, asthma, COPD, pulmonary embolism, pneumonia, pneumothorax, pulmonary effusion, anaphylaxis, diabetic ketoacidosis, flailed chest, pulmonary contusion, diaphragmatic rupture, anemia, neuromuscular, this is not meant to be an all-inclusive list. EKG interpreted by me (3pts min.). @ -As above X-rays interpreted by me (1pt min.). @ -Chest x-ray showed pulmonary venous congestion, scattered infiltrates, small right-sided pleural effusion CT interpreted by me (1pt min.). @ -None done U/S interpreted by me (1pt. min.). @ -None done What testing was considered but not performed or refused? (CT, X-rays, U/S, labs)? Why? @ -None What meds were considered but not given or refused? Why? @ -None Did you discuss the management of the patient with other professionals (professionals i.e. DrRossi, PA, TAX REPRESENTATIVE, lab, RT, psych nurse, child protective services social worker, child adolescent care, teacher, chief security officer, comp field case manager)? Give summary @ -Case was discussed with Dr. Love with [facility] was accepting of the admission Was smoking cessation discussed for >3mins.? @ -No Was critical care preformed (if so, how long)? @ -No Were there social determinants of health that impacted care today? How? (Homelessness, low income, unemployed, alcoholism, drug addiction, transportation, low edu. Level, literacy, decrease access to med. care, custodial, rehab)? @ -No Was there de-escalation of care discussed even if they declined (Discuss DNR or withdrawal of care, Hospice)? DNR status @ -No What co-morbidities impacted this encounter? (DM, HTN, Smoking, COPD, CAD, Cancer, CVA, ARF, Chemo, Hep., AIDS, mental health diagnosis, sleep apnea, morb id obesity)? @ -None Was patient admitted / discharged? Hospital course, mention meds given and route, prescriptions, significant lab abnormalities, going to OR and other pertinent info. @ -Admitted. Patient presented to emergency department with chief complaint of increasing shortness of breath over the past one week. Patient has a history of CHF. She does not use oxygen at home but upon EMS arrival and initial vitals patient was satting around 89% patient was placed on 2 L nasal cannula. O2 saturation maintained 94-95% on 2L. patient states that she takes 20 mg of Lasix daily. CBC showed WBC 4.9, hemoglobin 11.8, hematocrit 35.3; CMP showed sodium 134, potassium 4.3, creatinine 1.18; BNP 3070; trop negative. Chest x-ray showed pulmonary venous congestion, scattered infiltrates, small right-sided pleural effusion. Patient will benefit from inpatient admission since she is requiring oxygen when she does not use oxygen at home and treatment with IV Lasix. Case was discussed with Dr. Love with [facility] who is accepting of the admission. Case discussed my attending, Dr. Mancera. Undiagnosed new problem with uncertain prognosis? @ -No Drug Therapy requiring intensive monitoring for toxicity (Heparin, Nitro, Insulin, Cardizem)? @ -No Were any procedures done? @ -No Diagnosis/symptom? @ -CHF exacerbation Acute, or Chronic, or Acute on Chronic? @ -acute Uncomplicated (without systemic symptoms) or Complicated (systemic symptoms)? @ -uncomplicated Side effects of treatment? @ -No Exacerbation, Progression, or Severe Exacerbation? @ -No Poses a threat to life or bodily function? How? (Chest pain, [place], [place], pneumonia, PE, COPD, DKA, ARF, appy, cholecystitis, CVA, Diverticulitis, Homicidal, Lauren cidal, threat to staff... and all critical care pts) @ -No - Lab Data Result diagrams: 08/20/22 19:26 08/20/22 19:26 Lab Results 08/20/22 08/20/22 08/20/22 Range/Units 19:26 19:26 19:26 WBC 4.9 (3.8-10.6) k/uL RBC 3.93 (3.80-5.40) m/uL Hgb 11.8 (11.4-16.0) gm/dL Hct 35.3 (34.0-46.0) % MCV 90.0 (80.0-100.0) fL MCH 30.0 (25.0-35.0) pg MCHC 33.3 (31.0-37.0) g/dL RDW 14.5 (11.5-15.5) % Plt Count 112 L (150-450) k/uL MPV 10.4 Neutrophils % 74 % Lymphocytes % 14 % Monocytes % 8 % Eosinophils % 1 % Basophils % 1 % Neutrophils # 3.6 (1.3-7.7) k/uL Lymphocytes # 0.7 L (1.0-4.8) k/uL Monocytes # 0.4 (0-1.0) k/uL Eosinophils # 0.1 (0-0.7) k/uL Basophils # 0.0 (0-0.2) k/uL PT 10.1 (9.0-12.0) sec INR 1.0 (<1.2) APTT 27.0 (22.0-30.0) sec Sodium 134 L (137-145) mmol/L Potassium 4.3 (3.5-5.1) mmol/L Chloride 99 (98-107) mmol/L Carbon Dioxide 27 (22-30) mmol/L Anion Gap 8 mmol/L BUN 31 H (7-17) mg/dL Creatinine 1.18 H (0.52-1.04) mg/dL Est GFR (CKD-EPI)AfAm 48 (>60 ml/min/1.73 sqM) Est GFR (CKD-EPI)NonAf 42 (>60 ml/min/1.73 sqM) Glucose 131 H (74-99) mg/dL Plasma Lactic Acid Faizan (0.7-2.0) mmol/L Calcium 9.6 (8.4-10.2) mg/dL Total Bilirubin 0.5 (0.2-1.3) mg/dL AST 25 (14-36) U/L ALT 16 (4-34) U/L Alkaline Phosphatase 71 (38-126) U/L Troponin I (0.000-0.034) ng/mL NT-Pro-B Natriuret Pep pg/mL Total Protein 6.7 (6.3-8.2) g/dL Albumin 3.8 (3.5-5.0) g/dL 08/20/22 08/20/22 08/20/22 Range/Units 19:26 19:26 19:26 WBC (3.8-10.6) k/uL RBC (3.80-5.40) m/uL Hgb (11.4-16.0) gm/dL Hct (34.0-46.0) % MCV (80.0-100.0) fL MCH (25.0-35.0) pg MCHC (31.0-37.0) g/dL RDW (11.5-15.5) % Plt Count (150-450) k/uL MPV Neutrophils % % Lymphocytes % % Monocytes % % Eosinophils % % Basophils % % Neutrophils # (1.3-7.7) k/uL Lymphocytes # (1.0-4.8) k/uL Monocytes # (0-1.0) k/uL Eosinophils # (0-0.7) k/uL Basophils # (0-0.2) k/uL PT (9.0-12.0) sec INR (<1.2) APTT (22.0-30.0) sec Sodium (137-145) mmol/L Potassium (3.5-5.1) mmol/L Chloride (98-107) mmol/L Carbon Dioxide (22-30) mmol/L Anion Gap mmol/L BUN (7-17) mg/dL Creatinine (0.52-1.04) mg/dL Est GFR (CKD-EPI)AfAm (>60 ml/min/1.73 sqM) Est GFR (CKD-EPI)NonAf (>60 ml/min/1.73 sqM) Glucose (74-99) mg/dL Plasma Lactic Acid Faizan 1.3 (0.7-2.0) mmol/L Calcium (8.4-10.2) mg/dL Total Bilirubin (0.2-1.3) mg/dL AST (14-36) U/L ALT (4-34) U/L Alkaline Phosphatase (38-126) U/L Troponin I 0.017 (0.000-0.034) ng/mL NT-Pro-B Natriuret Pep 3070 pg/mL Total Protein (6.3-8.2) g/dL Albumin (3.5-5.0) g/dL Disposition Clinical Impression: Congestive heart failure Disposition: ADMITTED IP TO THIS HOSP Condition: Stable Is patient prescribed a controlled substance at d/c from ED?: No Referrals: Renzo Sauceda MD [Primary Care Provider] - 1-2 days Time of Disposition: 22:28
[2022-08-20] MEDS ORDERED: FUROSEMIDE 10 MG/ML 4 ML VIAL IV STA (22:18)
[2022-08-21] MEDS ORDERED: lisinopriL 20 MG TAB PO PRN (03:55)
[2022-08-21] MEDS ORDERED: ACETAMINOPHEN TAB 325 MG TAB PO PRN (03:55)
[2022-08-21] MEDS ORDERED: IPRATROPIUM-ALBUTEROL 3 ML NEB INHALATION PRN (03:57)
--- NOTE | 2022-08-21 04:09 | P.HPIM ---
History of Present Illness H&P Date: 08/20/22 Chief Complaint: shortness of breath 87 year old female with history of CHF , CAD patient coming in for evaluation secondary to progressive shortness of breath. she was not able to provide detailed history due to difficulty breathing when trying to talk. she reports 1 week history of worsening exertional dyspnea, today she was short of breath while resting doing nothing, no report of fever, chills. no known sick contacts. denies any chest pain. she reports orthopnea and PNDs. she feels congested, and coughing but can not bring up any phlegm, denies hemoptysis , or gi bleeding, denies nausea or vomiting, denies abd pain. denies smoking or drugs. review of systems Pertinent positives as noted in HPI. All other systems were reviewed and are negative on exam Constitutional: short of breath when trying to talk Eyes: Anicteric sclerae, moist conjunctiva, Pupils equal round reactive to light ENMT: NC/AT Oropharynx clear, no erythema, or exudates Neck: Supple, no masses, or JVD No carotid bruits No thyromegaly Lungs: diffuse rhonchi with basal rales Clear to percussion Normal respiratory effort, no accessory muscle use Cardiovascular: Heart regular in rate and rhythm, No murmurs, gallops, or rubs +1 bilateral peripheral edema Abdominal: Soft Nontender, no guarding, rebound or rigidity Abdomen moving with respiration Normoactive bowel sounds No hepatomegaly, No splenomegaly No palpable mass No abdominal wall hernia noted Skin: Normal temperature, tone, texture, turgor Extremities: No digital cyanosis No clubbing Pedal pulses intact and symmetrical Radial pulses intact and symmetrical No calf tenderness Psychiatric: Alert and oriented to person, place Neuro Muscles Strength 4/5 in all 4 extremities Sensation to light touch grossly present throughout Cranial nerves II-XII grossly intact Lymphatics: no palpable cervical or supraclavicular lymph nodes Past Medical History Past Medical History: Coronary Artery Disease (CAD), Heart Failure, GERD/Reflux, Hyperlipidemia, Hypertension Additional Past Medical History / Comment(s): , AORTIC VALVE REPLACEMENT 10 YEA RS AGO History of Any Multi-Drug Resistant Organisms: None Reported Past Surgical History: Cardiac Valve Replacement Past Anesthesia/Blood Transfusion Reactions: No Reported Reaction Past Psychological History: No Psychological Hx Reported Smoking Status: Never smoker Past Alcohol Use History: None Reported Past Drug Use History: None Reported - Past Family History Mother Family Medical History: Hypertension Medications and Allergies Home Medications Medication Instructions Recorded Confirmed Type Metoprolol Succinate (ER) [Toprol 25 mg PO DAILY 02/07/21 08/20/22 History XL] Omeprazole 20 mg PO DAILY 02/07/21 08/20/22 History PARoxetine HCL [Paxil] 40 mg PO DAILY 02/07/21 08/20/22 History Ammonium Lactate Lotion 1 applic TOPICAL Q12H 02/25/21 08/20/22 History [Lac-Hydrin 12% Lotion] Bismuth Subsalicylate 524 mg PO Q4H PRN 02/25/21 08/20/22 History [Pepto-Bismol] Furosemide [Lasix] 20 mg PO DAILY@1600 02/25/21 08/20/22 History Potassium Chloride ER [K-Dur 20] 20 meq PO DAILY 02/25/21 08/20/22 History Acetaminophen Tab [Tylenol] 650 mg PO Q4HR PRN tab 03/06/21 08/20/22 Rx traMADol HCl [Ultram] 50 mg PO Q6HR PRN tab 03/06/21 08/20/22 Rx Albuterol Nebulized [Ventolin 2.5 mg INHALATION RT-TID 08/20/22 08/20/22 History Nebulized] Atorvastatin Calcium [Lipitor] 40 mg PO DIRECTED 08/20/22 08/20/22 History Cholecalciferol [Vitamin D3 (125 125 mcg PO DAILY 08/20/22 08/20/22 History Mcg = 5000 Iu)] Divalproex [Depakote] 250 mg PO DAILY 08/20/22 08/20/22 History Donepezil [Aricept] 5 mg PO HS 08/20/22 08/20/22 History Furosemide [Lasix] 40 mg PO DAILY 08/20/22 08/20/22 History Hydrocortisone Cream 1 applic TOPICAL BID 08/20/22 08/20/22 History [Hydrocortisone 2.5% Cream] Latanoprost [Latanoprost 0.005%] 1 drop RIGHT EYE HS 08/20/22 08/20/22 History Memantine [Namenda] 5 mg PO BID 08/20/22 08/20/22 History Nystatin 100,000Unit/gm Cream 1 applic TOPICAL BID 08/20/22 08/20/22 History [Mycostatin Cream] Sennosides [Senokot] 8.6 mg PO BID 08/20/22 08/20/22 History lisinopriL [Zestril] 20 mg PO DAILY PRN 08/20/22 08/20/22 History Allergies Allergy/AdvReac Type Severity Reaction Status Date / Time No Known Allergies Allergy Verified 08/20/22 22:49 Physical Exam Vitals: Vital Signs Temp Pulse Resp BP Pulse Ox 08/20/22 20:05 60 20 121/65 97 08/20/22 19:01 97.6 F 57 L 22 124/111 95 Intake and Output 08/20/22 08/20/22 08/20/22 06:59 14:59 22:59 Other: Weight 90.718 kg Results CBC & Chem 7: 08/20/22 19:26 08/20/22 19:26 Labs: Abnormal Lab Results - Last 24 Hours (Table) 08/20/22 08/20/22 Range/Units 19:26 19:26 Plt Count 112 L (150-450) k/uL Lymphocytes # 0.7 L (1.0-4.8) k/uL Sodium 134 L (137-145) mmol/L BUN 31 H (7-17) mg/dL Creatinine 1.18 H (0.52-1.04) mg/dL Glucose 131 H (74-99) mg/dL Assessment and Plan Assessment: 87 year old female with diastolic CHF, coming in with progressive SOB, i discussed the case with ED doc, and I accepted the admission CHF exacerbation for IV diuresis with anticipated length of stay > 2 midnights acute shortness of breath acute diastolic chf exacerbation echocardiogram 2020 LVEF 55% CXR showed pulmonary vascular congestion with slight right sided pleura effusion IVF diuresis with lasix 40 mg IVP bid daily weight strict I O s fluid restriction to 1800 cc dailiy resume lisinopril and metoprolol resume statin elevated Pro BNP 3070 trops negative acute respiratory viral panel negative for covid and RSV and influenza supplemental oxygen as needed ANNIA, possibly cardiorenal Cr 1.18 (baseline 0.7-0.8) BUN 31 electrolytes unremarkable Na 134 , K 4.3 hold ACEi CBC unremarkable Hgb 11.8, Wbc 4.9 fall precautions DVT PPX heparin sc tid 5000 units
[2022-08-21] MEDS: HEPARIN SODIUM,PORCINE/PF 5,000 UNIT/0.5 ML SYRINGE SQ SCH ×3 (08:57→23:36)
[2022-08-21] MEDS: PANTOPRAZOLE 40 MG TABLET PO SCH (08:57)
[2022-08-21] MEDS: METOPROLOL SUCCINATE (ER) 25 MG TAB.ER.24H PO SCH (08:58)
[2022-08-21] MEDS: MEMANTINE 5 MG TAB PO SCH ×2 (08:58→20:20)
[2022-08-21] MEDS: DIVALPROEX 250 MG TABLET.DR PO SCH (08:58)
--- NOTE | 2022-08-21 10:23 | P.CRDCN ---
History of Present Illness Consult date: 08/21/22 Consult reason: congestive heart failure (Exacerbation) History of present illness: History of present illness: This is an 87-year-old female patient of Dr. Montero with past medical history of severe aortic stenosis with normal EF and history of prosthetic AV, hypertension, dyslipidemia, memory loss. We have been asked to evaluate the patient for CHF exacerbation. Patient states that she developed shortness of breath that had progressively worsened over the past week, dyspnea with minimal exertion. Patient denies having any chest pain. No fever or chills. She does complain of cough without sputum. Patient presented to the emergency center and she was found to be afebrile, heart rate has been in the 60s, initial blood pressure readings were elevated. Patient received 1 dose of IV Lasix 40 mg emergency center. Patient was last seen in the office in February 2020. At that time Dr. Montero discussed with the patient and her daughter the option of TAVR and patient states that she discussed with her PCP and PCP recommended to not pursue the procedure. EKG W BC 4.9, hemoglobin 11.8, platelet count 112. INR 1. Sodium 134, potassium 4.3, BUN 31 creatinine 1.18. Liver function tests are normal. Troponin negative 1. ProBNP 3070. Influenza A, influenza B, RSV and Covid 19 not detected. Chest x-ray reveals cardiomegaly with pulmonary venous congestion scattered infiltrates as well as small right-sided pleural effusion suggested of congestive heart failure. Home cardiac medications: Atorvastatin 40 mg, Lasix 40 mg in the morning and 20 in the afternoon, lisinopril 20 mg as needed, Toprol-XL 25 mg daily. Review Of Systems: At the time of my evaluation: Constitutional: No fever, no chills. No weakness, fatigue or lethargy. EENT: No headache. No dizziness. Lungs: Reports shortness of breath, reports cough, no sputum production. No wheezing. Cardiovascular: No chest pain, no lower extremity edema. No palpitations. No paroxysmal nocturnal dyspnea. Reports orthopnea. No lightheadedness or dizziness. No syncopal episodes. Abdominal: No abdominal pain. No nausea, vomiting. No diarrhea. No constipation. No bloody or tarry stools. Musculoskeletal: No myalgias. Generalized muscle weakness, no frequent falls. No back pain. No neck pain. Neurologic: No aphasia. No facial droop. No change in mentation. No head injury. No headache. Physical examination: Gen: This is an 87-year-old female. She is resting in bed and appears to be fairly comfortable. VS: reviewed 154/76, heart rate in the 60s, pulse ox 92% on 2 L nasal cannula, afebrile. HEENT: Head is atraumatic, normocephalic. Pupils equal, round. Sclerae is anicteric. NECK: Supple. No JVD. . LUNGS: Diminished bilaterally. No intercostal retractions. HEART: Regular rate and rhythm. 3/6 systolic ejection murmur at the base radiating to the neck. ABDOMEN: Soft No tenderness. EXTREMITIES: No pedal edema. No calf tenderness. NEUROLOGICAL: Patient is awake, alert and oriented x3. Assessment: Acute diastolic heart failure Severe atrial stenosis status post prosthetic valve Severe stenosis of the prosthetic valve, patient wishes for conservative medical management at this point Hypertension Hyperlipidemia Memory loss Plan: Start patient on IV Lasix 40 mg every 8 hours Monitor I&O, daily weights, electrolytes and renal function Repeat magnesium and BMP in the morning Obtain 2-D echocardiogram and Doppler study to assess cardiac structure and function Further recommendations to follow based upon clinical course Thank you kindly for this consultation. Nurse practitioner note has been reviewed, I agree with documented findings and plan of care. Patient was seen and examined. Past Medical History Past Medical History: Coronary Artery Disease (CAD), Heart Failure, GERD/Reflux, Hyperlipidemia, Hypertension Additional Past Medical History / Comment(s): , AORTIC VALVE REPLACEMENT 10 YEARS AGO History of Any Multi-Drug Resistant Organisms: None Reported Past Surgical History: Cardiac Valve Replacement Past Anesthesia/Blood Transfusion Reactions: No Reported Reaction Past Psychological History: No Psychological Hx Reported Smoking Status: Never smoker Past Alcohol Use History: None Reported Past Drug Use History: None Reported - Past Family History Mother Family Medical History: Hypertension Medications and Allergies Home Medications Medication Instructions Recorded Confirmed Type Metoprolol Succinate (ER) [Toprol 25 mg PO DAILY 02/07/21 08/20/22 History XL] Omeprazole 20 mg PO DAILY 02/07/21 08/20/22 History PARoxetine HCL [Paxil] 40 mg PO DAILY 02/07/21 08/20/22 History Ammonium Lactate Lotion 1 applic TOPICAL Q12H 02/25/21 08/20/22 History [Lac-Hydrin 12% Lotion] Bismuth Subsalicylate 524 mg PO Q4H PRN 02/25/21 08/20/22 History [Pepto-Bismol] Furosemide [Lasix] 20 mg PO DAILY@1600 02/25/21 08/20/22 History Potassium Chloride ER [K-Dur 20] 20 meq PO DAILY 02/25/21 08/20/22 History Acetaminophen Tab [Tylenol] 650 mg PO Q4HR PRN tab 03/06/21 08/20/22 Rx traMADol HCl [Ultram] 50 mg PO Q6HR PRN tab 03/06/21 08/20/22 Rx Albuterol Nebulized [Ventolin 2.5 mg INHALATION RT-TID 08/20/22 08/20/22 History Nebulized] Atorvastatin Calcium [Lipitor] 40 mg PO DIRECTED 08/20/22 08/20/22 History Cholecalciferol [Vitamin D3 (125 125 mcg PO DAILY 08/20/22 08/20/22 History Mcg = 5000 Iu)] Divalproex [Depakote] 250 mg PO DAILY 08/20/22 08/20/22 History Donepezil [Aricept] 5 mg PO HS 08/20/22 08/20/22 History Furosemide [Lasix] 40 mg PO DAILY 08/20/22 08/20/22 History Hydrocortisone Cream 1 applic TOPICAL BID 08/20/22 08/20/22 History [Hydrocortisone 2.5% Cream] Latanoprost [Latanoprost 0.005%] 1 drop RIGHT EYE HS 08/20/22 08/20/22 History Memantine [Namenda] 5 mg PO BID 08/20/22 08/20/22 History Nystatin 100,000Unit/gm Cream 1 applic TOPICAL BID 08/20/22 08/20/22 History [Mycostatin Cream] Sennosides [Senokot] 8.6 mg PO BID 08/20/22 08/20/22 History lisinopriL [Zestril] 20 mg PO DAILY PRN 08/20/22 08/20/22 History Allergies Allergy/AdvReac Type Severity Reaction Status Date / Time No Known Allergies Allergy Verified 08/20/22 22:49 Physical Exam Vitals: Vital Signs Temp Pulse Pulse Resp BP BP Pulse Ox 08/21/22 08:30 98.5 F 66 15 154/76 92 L 08/21/22 08:16 95 08/21/22 03:09 99.8 F H 62 16 176/75 93 L 08/21/22 01:30 20 08/21/22 01:12 96.4 F L 65 20 196/81 97 08/20/22 23:00 65 20 151/66 98 08/20/22 22:00 62 20 131/83 94 L 08/20/22 20:05 60 20 121/65 97 08/20/22 19:01 97.6 F 57 L 22 124/111 95 Intake and Output 08/20/22 08/21/22 08/21/22 22:59 06:59 14:59 Output Total 700 Balance -700 Output: Urine 700 Other: Voiding Method External Catheter Weight 90.718 kg 87.5 kg Results 08/20/22 19:26 08/20/22 19:26 Cardiac Enzymes 08/20/22 08/20/22 Range/Units 19:26 19:26 AST 25 (14-36) U/L Troponin I 0.017 (0.000-0.034) ng/mL Coagulation 08/20/22 Range/Units 19:26 PT 10.1 (9.0-12.0) sec APTT 27.0 (22.0-30.0) sec CBC 08/20/22 Range/Units 19:26 WBC 4.9 (3.8-10.6) k/uL RBC 3.93 (3.80-5.40) m/uL Hgb 11.8 (11.4-16.0) gm/dL Hct 35.3 (34.0-46.0) % Plt Count 112 L (150-450) k/uL Comprehensive Metabolic Panel 08/20/22 Range/Units 19:26 Sodium 134 L (137-145) mmol/L Potassium 4.3 (3.5-5.1) mmol/L Chloride 99 (98-107) mmol/L Carbon Dioxide 27 (22-30) mmol/L BUN 31 H (7-17) mg/dL Creatinine 1.18 H (0.52-1.04) mg/dL Glucose 131 H (74-99) mg/dL Calcium 9.6 (8.4-10.2) mg/dL AST 25 (14-36) U/L ALT 16 (4-34) U/L Alkaline Phosphatase 71 (38-126) U/L Total Protein 6.7 (6.3-8.2) g/dL Albumin 3.8 (3.5-5.0) g/dL Current Medications Generic Name Dose Route Start Last Admin Trade Name Freq PRN Reason Stop Dose Admin Acetaminophen 650 mg 08/21/22 03:55 Acetaminophen Tab 325 Mg Tab PO Q4HR PRN Fever and/ or Mild Pain Albuterol/Ipratropium 3 ml 08/21/22 03:57 Ipratropium-Albuterol 3 Ml Neb INHALATION RT-Q2H PRN Shortness Of Breath Or Wheezing Atorvastatin Calcium 40 mg 08/21/22 21:00 Atorvastatin 40 Mg Tab PO HS [facility] Divalproex Sodium 250 mg 08/21/22 09:00 Divalproex 250 Mg Tablet.Dr PO DAILY [facility] Donepezil HCl 5 mg 08/21/22 21:00 Donepezil 5 Mg Tab PO HS [facility] Furosemide 40 mg 08/21/22 10:30 Furosemide 10 Mg/Ml 4 Ml Vial IV Q12H [facility] Heparin Sodium (Porcine) 5,000 unit 08/21/22 08:00 Heparin Sodium,Porcine/Pf 5,000 Unit/0.5 Ml Syringe SQ Q8HR [facility] Memantine 5 mg 08/21/22 09:00 Memantine 5 Mg Tab PO BID [facility] Metoprolol Succinate 25 mg 08/21/22 09:00 Metoprolol Succinate (Er) 25 Mg Tab.Er.24h PO DAILY [facility] Pantoprazole Sodium 40 mg 08/21/22 07:30 Pantoprazole 40 Mg Tablet PO AC-BRKFST [facility] Intake and Output 08/20/22 08/21/22 08/21/22 22:59 06:59 14:59 Output Total 700 Balance -700 Output: Urine 700 Other: Voiding Method External Catheter Weight 90.718 kg 87.5 kg 08/20/22 19:26 08/20/22 19:26
[2022-08-21] MEDS: FUROSEMIDE 10 MG/ML 4 ML VIAL IV SCH ×3 (10:26→23:36)
[2022-08-21] MEDS ORDERED: FUROSEMIDE 10 MG/ML 4 ML VIAL IV SCH (10:30)
--- NOTE | 2022-08-21 12:40 | CA ---
Transthoracic Echo Report Name: Nitza Arteaga Age: 87 Gender: F : 1935 Exam Date: 08/21/2022 07:28 Exam Location: [facility] Ht (in): 62 Wt (lb): 200 Ordering Physician: Bonilla East MD Attending/Referring Phys: [id number], [employer] Coordinator Leighton Hewitt Procedure CPT: Indications: chf Cardiac Hx: Technical Quality: Very technically difficult study Contrast 1: Lumason Total Dose (mL): 5 Contrast 2: Agitated Saline Total Dose (mL): 10 MEASUREMENTS (Male / Female) Normal Values 2D ECHO LV Diastolic Diameter PLAX 3.4 cm 4.2 - 5.9 / 3.9 - 5.3 cm LV Systolic Diameter PLAX 2.3 cm IVS Diastolic Thickness 1.3 cm 0.6 - 1.0 / 0.6 - 0.9 cm LVPW Diastolic Thickness 1.1 cm 0.6 - 1.0 / 0.6 - 0.9 cm LV Relative Wall Thickness 0.7 RV Internal Dim ED PLAX 2.0 cm LVOT Diameter 1.9 cm Aortic Root Diameter 1.9 cm LA Systolic Diameter LX 3.2 cm 3.0 - 4.0 / 2.7 - 3.8 cm LV Diastolic Volume MOD BP 38.0 cm??? 67 - 155 / 56 - 104 cm??? LV Systolic Volume MOD BP 15.8 cm??? 22 - 58 / 19 - 49 cm??? LV Ejection Fraction MOD BP 58.4 % >= 55 % LV Diastolic Volume MOD 4C 40.8 cm??? LV Systolic Volume MOD 4C 20.1 cm??? LV Ejection Fraction MOD 4C 50.7 % LV Diastolic Length 4C 6.2 cm LV Systolic Length 4C 5.4 cm LV Diastolic Volume MOD 2C 34.9 cm??? LV Systolic Volume MOD 2C 12.4 cm??? LV Ejection Fraction MOD 2C 64.6 % LV Diastolic Length 2C 6.0 cm LV Systolic Length 2C 5.5 cm LA Volume 24.7 cm??? 18 - 58 / 22 - 52 cm??? DOPPLER AV Peak Velocity 402.6 cm/s AV Peak Gradient 64.8 mmHg AV Mean Velocity 311.9 cm/s AV Mean Gradient 42.7 mmHg AV Velocity Time Integral 96.0 cm LVOT Peak Velocity 96.1 cm/s LVOT Peak Gradient 3.7 mmHg LVOT Velocity Time Integral 21.6 cm LVOT Stroke Volume 61.2 cm??? LVOT Stroke Volume Index 32.0 ml/m??? AV Area Cont Eq vti 0.6 cm??? AV Area Cont Eq pk 0.7 cm??? MV Peak Velocity 122.7 cm/s MV Peak Gradient 6.0 mmHg MV Mean Velocity 64.0 cm/s MV Mean Gradient 1.9 mmHg MV Velocity Time Integral 41.0 cm Mitral E Point Velocity 114.4 cm/s Mitral A Point Velocity 87.7 cm/s Mitral E to A Ratio 1.3 MV Deceleration Time 295.7 ms TR Peak Velocity 118.0 cm/s TR Peak Gradient 5.6 mmHg Right Ventricular Systolic Press 10.6 mmHg PV Peak Velocity 103.4 cm/s PV Peak Gradient 4.3 mmHg FINDINGS Left Ventricle Mildly increased septal wall thickness. Mildly increased posterior wall thickness. Left ventricular ejection fraction is estimated at 55 %. Normal LV size. Right Ventricle Normal right ventricular size. Right Atrium Normal right atrial size. Left Atrium Normal left atrial size. Mitral Valve Mitral valve not well visualized. No mitral regurgitation. No mitral stenosis. Aortic Valve Aortic valve not well visualized. AV Peak gradient= 65mmhg. Mean gradient= 43mmhg. Estimated AV Area= 0.7cm2. Tricuspid Valve Tricuspid valve not well visualized. Pulmonic Valve Pulmonic valve not well visualized. Mild PI. Pericardium Not well visualized. Aorta Not well visualized. CONCLUSIONS Technically very difficult and limited study. Patient states Hx. of Aortic valve prosthesis. LV systolic function is normal. I aortic valve is poorly seen but appears to have significant stenosis with a mean gradient of 40-45 mmHg. LV systolic function is well-preserved. Rest of the Doppler is suboptimal. Previewed by: Dr. Trevor Sanchez MD (Electronically Signed) Final Date: 21 August 2022 12:39
--- NOTE | 2022-08-21 14:26 | P.PN ---
Subjective Progress Note Date: 08/21/22 Hospital Course: 87 year old female with history of CHF , CAD admitted for diastolic CHF exacerbation. Chest x-ray in the ED shows bilateral pulmonary vascular congestion. Creatinine was 1.18, proBNP 3000. Patient was started on IV Lasix. Cardiology consulted. Echocardiogram showed likely significant aortic valve stenosis, LV systolic function was normal Subjective: Patient seen and examined at bedside. Claims that her breathing is slightly improved. She has occasional productive cough. Pertinent positives and negatives as discussed above, a complete review of systems was performed and all other systems are negative. Vitals Signs Reviewed. General: nontoxic, no distress, appears at stated age Derm: warm, dry Head: atraumatic, normocephalic, symmetric Eyes: EOMI, no lid lag, anicteric sclera Mouth: no lip lesion, mucus membranes moist Cardiovascular: S1S2 reg, systolic murmur Lungs: bibasilar rales , no accessory muscle use Abdominal: soft, nontender to palpation, no guarding, no appreciable organomegaly Ext: no gross muscle atrophy, trace edema, no contractures Neuro: CN II-XI grossly intact, no focal neuro deficits Psych: Alert, oriented, appropriate affect Data Reviewed Today: Pertinent Labs: No other new labs today Imaging: Echocardiogram report reviewed, likely has significant aortic stenosis, LV systolic function was normal. Assessment and Plan: Acute diastolic heart failure exacerbation Severe aortic valve stenosis, history of prostatic valve Hypertension Dyslipidemia Dementia GERD Depression/anxiety -Continue Lasix 40 mg IV every 8 hours, monitor ins and outs, monitor renal function and electrolytes -Possibly heart failure exacerbation in the setting of severe aortic stenosis -Needs close hemodynamic monitoring as she is preload dependent -Cardiology note reviewed, patient will like to conservatively manage severe aortic stenosis -Home medications reconciled DVT ppx: Subcu heparin Code status: full code Anticipated discharge place: pending clinical course Anticipated discharge time: pending clinical course Objective - Vital Signs Vital signs: Vital Signs Temp 98.9 F 08/21/22 14:25 Pulse 72 08/21/22 14:25 Resp 16 08/21/22 14:25 BP 134/54 08/21/22 14:25 Pulse Ox 92 L 08/21/22 08:30 FiO2 Intake & Output 08/20/22 08/21/22 08/21/22 18:59 06:59 18:59 Intake Total 240 Output Total 700 0 Balance -700 240 Weight 87.5 kg Intake: Oral 240 Output: Urine 700 0 Other: Voiding Method External Catheter External Catheter - Labs CBC & Chem 7: 08/20/22 19:26 08/20/22 19:26 Labs: Abnormal Lab Results - Last 24 Hours (Table) 08/20/22 08/20/22 Range/Units 19:26 19:26 Plt Count 112 L (150-450) k/uL Lymphocytes # 0.7 L (1.0-4.8) k/uL Sodium 134 L (137-145) mmol/L BUN 31 H (7-17) mg/dL Creatinine 1.18 H (0.52-1.04) mg/dL Glucose 131 H (74-99) mg/dL
[2022-08-21] MEDS ORDERED: HEPARIN SODIUM,PORCINE/PF 5,000 UNIT/0.5 ML SYRINGE SQ SCH (16:00)
[2022-08-21] MEDS: ALBUTEROL NEBULIZED 2.5 MG/3 ML INHALATION SCH (20:13)
[2022-08-21] MEDS: ATORVASTATIN 40 MG TAB PO SCH (20:20)
[2022-08-21] MEDS: DONEPEZIL 5 MG TAB PO SCH (20:20)
[2022-08-21] MEDS: SENNOSIDES 8.6 MG TAB PO SCH (20:20)
[2022-08-21] MEDS: LATANOPROST 0.005% OPHTH DROPS 2.5 ML BTL RIGHT EYE SCH (20:44)
[2022-08-22] MEDS: ALBUTEROL NEBULIZED 2.5 MG/3 ML INHALATION SCH ×3 (08:20→20:26)
[2022-08-22] MEDS: FUROSEMIDE 10 MG/ML 4 ML VIAL IV SCH ×2 (08:52→10:12)
--- NOTE | 2022-08-22 09:22 | P.PN ---
Subjective Progress Note Date: 08/22/22 History of present illness: This is an 87-year-old female patient of Dr. Montero with past medical history of severe aortic stenosis with normal EF and history of prosthetic AV, hypertension, dyslipidemia, memory loss. We have been asked to evaluate the patient for CHF exacerbation. Patient states that she developed shortness of breath that had progressively worsened over the past week, dyspnea with minimal exertion. Patient denies having any chest pain. No fever or chills. She does complain of cough without sputum. Patient presented to the emergency center and she was found to be afebrile, heart rate has been in the 60s, initial blood pressure readings were elevated. Patient received 1 dose of IV Lasix 40 mg emergency center. Patient was last seen in the office in February 2020. At that time Dr. Montero discussed with the patient and her daughter the option of TAVR and patient states that she discussed with her PCP and PCP recommended to not pursue the procedure. EKG W BC 4.9, hemoglobin 11.8, platelet count 112. INR 1. Sodium 134, potassium 4.3, BUN 31 creatinine 1.18. Liver function tests are normal. Troponin negative 1. ProBNP 3070. Influenza A, influenza B, RSV and Covid 19 not detected. Chest x-ray reveals cardiomegaly with pulmonary venous congestion scattered infi ltrates as well as small right-sided pleural effusion suggested of congestive heart failure. Home cardiac medications: Atorvastatin 40 mg, Lasix 40 mg in the morning and 20 in the afternoon, lisinopril 20 mg as needed, Toprol-XL 25 mg daily. 08/22 Patient is seen today in follow-up. Patient states that she has improvement of her shortness of breath. He she also relates that she has obstructive sleep apnea but her insurance will no longer be covered for CPAP. She has been on Lasix 40 mg every 8 hours with minimal urine output. Documented urine output of 700 ML's. Patient had a bladder scan this morning for 100 mL. Heart rate is running in the 60s and 80s, blood pressure 122/82. Echocardiogram reveals EF of 55%, aortic valve is poorly seen but appears to be with significant stenosis wi th a mean gradient of 4040 5 mmHg. The rest of the Doppler is suboptimal. Morning blood work has not been reported at the time of this dictation. Physical examination: Gen: This is an 87-year-old female. She is resting in bed and appears to be fairly comfortable. VS: reviewed and heart rate in the 60s and 80s, blood pressure 122/62, pulse ox 97% on 2 L nasal cannula. HEENT: Head is atraumatic, normocephalic. Pupils equal, round. Sclerae is anicteric. LUNGS: Bilateral rhonchi and wheezing. No intercostal retractions. HEART: Regular rate and rhythm. 3/6 systolic ejection murmur at the base radiating to the neck. ABDOMEN: Soft No tenderness. EXTREMITIES: No pedal edema. No calf tenderness. NEUROLOGICAL: Patient is awake, alert and oriented x3. Assessment: Acute diastolic heart failure Severe atrial stenosis status post prosthetic valve Severe stenosis of the prosthetic valve, patient wishes for conservative medical management at this point Hypertension Hyperlipidemia Memory loss Obstructive sleep apnea Plan: Decrease IV Lasix to 40 mg daily Monitor I&O, daily weights, electrolytes and renal function Repeat magnesium and BMP in the morning Further recommendations to follow based upon clinical course Thank you kindly for this consultation. Nurse practitioner note has been reviewed, I agree with documented findings and plan of care. Patient was seen and examined. Objective - Vital Signs Vital signs: Vital Signs Temp 98.1 F 08/22/22 07:22 Pulse 80 08/22/22 08:30 Resp 18 08/22/22 07:22 BP 122/62 08/22/22 07:22 Pulse Ox 94 L 08/22/22 08:20 FiO2 Intake & Output 08/21/22 08/22/22 08/22/22 18:59 06:59 18:59 Intake Total 1200 240 Output Total 600 50 Balance 600 190 Weight 86.5 kg Intake: Oral 1200 240 Output: Urine 600 50 Other: Voiding Method External Catheter External Catheter # Voids 1 # Bowel Movements 0 - Labs CBC & Chem 7: 08/20/22 19:26 08/20/22 19:26
[2022-08-22] MEDS: METOPROLOL SUCCINATE (ER) 25 MG TAB.ER.24H PO SCH (09:32)
[2022-08-22] MEDS: PARoxetine 20 MG TAB PO SCH (09:33)
[2022-08-22] MEDS: MEMANTINE 5 MG TAB PO SCH ×2 (09:33→21:28)
[2022-08-22] MEDS: DIVALPROEX 250 MG TABLET.DR PO SCH (09:33)
[2022-08-22] MEDS: HEPARIN SODIUM,PORCINE/PF 5,000 UNIT/0.5 ML SYRINGE SQ SCH ×2 (09:33→16:06)
[2022-08-22] MEDS: CHOLECALCIFEROL 125 MCG (5000 IU) TABLET PO SCH (09:33)
[2022-08-22] MEDS: PANTOPRAZOLE 40 MG TABLET PO SCH (09:33)
[2022-08-22] MEDS: SENNOSIDES 8.6 MG TAB PO SCH ×2 (09:33→21:28)
--- NOTE | 2022-08-22 15:14 | P.PN ---
Subjective Progress Note Date: 08/22/22 Patient is an 87 year old female with history of CHF, CAD admitted for diastolic CHF exacerbation. Chest x-ray in the ED shows bilateral pulmonary vascular congestion. Creatinine was 1.18, proBNP 3070. Patient was started on IV Lasix. Cardiology consulted. Echocardiogram showed likely significant aortic valve stenosis, LV systolic function was normal. She was continued on diuresis. Patient seen and examined at bedside. She complains of overall weakness. She complains of how difficult it is to function at home she is losing her vision. She denies any nausea, vomiting, or significant lower extremity edema Vital signs reviewed General: nontoxic, no distress, appears at stated age Cardiovascular: S1S2 reg, no murmur, positive posterior tibial pulse bilateral, Lungs: Coarse rhonchorous breath sounds bilateral, no rhonchi, no rales , no accessory muscle use Abdominal: soft, nontender to palpation, no guarding, no appreciable organomegaly Ext: no gross muscle atrophy, no edema b/l lower extremities, no contractures Neuro: CN II-XI grossly intact, no focal neuro deficits Psych: Alert, oriented, appropriate affect Assessment/Plan: Acute distolic CHF, with EF 55-60% Severe aortic stenosis, s/p prosthetic valve HTN HLD CAD - Continue with diuresis -Await BMP and magnesium levels -Cardiology note reviewed: Decrease Lasix to 40 mg daily -Continue with Lipitor 40 mg at night, metoprolol 25 mg daily Chronic: GERD Worsening vision Memory impairment Imaging: None new Data Review: Vital signs reviewed and temperature 98.1, pulse 61, respirations 18, blood pressure 122/62, O2 sat 97% on 2 L No new labs available, for review -BMP and magnesium pending DVT prophylaxis: Heparin Anticipated discharge date: Pending Clinical Course Anticipated discharge place: Per patient SNF, per note the neice recommended returned to assisted living This dictation was prepared using [employer] voice recognition software. Though every attempt is made to correct errors during dictation some may still exist. Objective - Vital Signs Vital signs: Vital Signs Temp 98.3 F 08/22/22 13:13 Pulse 54 L 08/22/22 13:13 Resp 16 08/22/22 13:13 BP 121/72 08/22/22 13:13 Pulse Ox 92 L 08/22/22 13:13 FiO2 Intake & Output 08/21/22 08/22/2208/22/23 18:59 06:59 18:59 Intake Total 1200 240 Output Total 600 50 108 Balance 600 190 -108 Weight 86.5 kg Intake: Oral 1200 240 Output: Urine 600 50 Post Void Residual 108 Other: Voiding Method External Catheter External Catheter External Catheter # Voids 1 # Bowel Movements 0 - Labs CBC & Chem 7: 08/20/22 19:26 08/20/22 19:26
[2022-08-22 18:08] LABS: Blood Urea Nitrogen 39.9 mg/dL (9.0-27.0); Calcium 9.7 mg/dL (8.7-10.3); Carbon Dioxide 24.1 mmol/L (21.6-31.8); Chloride 98 mmol/L (96-109); Glucose 105 mg/dL (70-110); Magnesium 1.9 mg/dL (1.5-2.4); Potassium 4.4 mmol/L (3.5-5.5); Sodium 138 mmol/L (135-145)
[2022-08-22] MEDS: LATANOPROST 0.005% OPHTH DROPS 2.5 ML BTL RIGHT EYE SCH (21:28)
[2022-08-22] MEDS: DONEPEZIL 5 MG TAB PO SCH (21:28)
[2022-08-22] MEDS: ATORVASTATIN 40 MG TAB PO SCH (21:28)
[2022-08-23] MEDS: HEPARIN SODIUM,PORCINE/PF 5,000 UNIT/0.5 ML SYRINGE SQ SCH ×4 (01:08→23:49)
[2022-08-23] MEDS: ALBUTEROL NEBULIZED 2.5 MG/3 ML INHALATION SCH ×3 (07:40→19:12)
[2022-08-23] MEDS: SENNOSIDES 8.6 MG TAB PO SCH ×2 (08:38→21:29)
[2022-08-23] MEDS: FUROSEMIDE 10 MG/ML 4 ML VIAL IV SCH (08:38)
[2022-08-23] MEDS: PANTOPRAZOLE 40 MG TABLET PO SCH (08:38)
[2022-08-23] MEDS: METOPROLOL SUCCINATE (ER) 25 MG TAB.ER.24H PO SCH (08:38)
[2022-08-23] MEDS: CHOLECALCIFEROL 125 MCG (5000 IU) TABLET PO SCH (08:38)
[2022-08-23] MEDS: MEMANTINE 5 MG TAB PO SCH ×2 (08:40→21:29)
[2022-08-23] MEDS: DIVALPROEX 250 MG TABLET.DR PO SCH (08:40)
[2022-08-23] MEDS: PARoxetine 20 MG TAB PO SCH (08:40)
[2022-08-23 11:10] LABS: BUN/Creat Ratio 25.48 Ratio (12.00-20.00); Blood Urea Nitrogen 53.5 mg/dL (9.0-27.0); Calcium 9.3 mg/dL (8.7-10.3); Chloride 97 mmol/L (96-109); Glucose 109 mg/dL (70-110); Potassium 4.3 mmol/L (3.5-5.5); Sodium 137 mmol/L (135-145)
[2022-08-23] MEDS ORDERED: ARTIFICIAL TEARS-HYPROMELLOSE DROPS 15 ML BTL BOTH EYES PRN (11:24)
[2022-08-23] MEDS ORDERED: polyethylene glycoL 3350 17 GM POWD.PACK PO STA (11:51)
--- NOTE | 2022-08-23 13:55 | P.PN ---
Subjective Progress Note Date: 08/23/22 Patient is an 87 year old female with history of CHF, CAD admitted for diastolic CHF exacerbation. Chest x-ray in the ED shows bilateral pulmonary vascular congestion. Creatinine was 1.18, proBNP 3070. Patient was started on IV Lasix. Cardiology consulted. Echocardiogram showed likely significant aortic valve stenosis, LV systolic function was normal. She was continued on diuresis. Patient seen and examined at bedside. She complains of difficulty with urination. Post void residual was 108 yesterday. Denies any chest pain. Continues to have some shortness of breath and cough. Vital signs reviewed General: nontoxic, no distress, appears at stated age Cardiovascular: S1S2 reg, no murmur, positive posterior tibial pulse bilateral, Lungs: Coarse rhonchorous breath sounds bilateral, no rhonchi, no rales , no accessory muscle use Abdominal: soft, nontender to palpation, no guarding, no appreciable organomegaly Ext: no gross muscle atrophy, no edema b/l lower extremities, no contractures Neuro: CN II-XI grossly intact, no focal neuro deficits Psych: Alert, oriented, appropriate affect Assessment/Plan: Acute diastolic CHF, with EF 55-60% Severe aortic stenosis, s/p prosthetic valve HTN HLD CAD -Stop IV lasix -Cardiology note reviewed: -Continue with Lipitor 40 mg at night, metoprolol 25 mg daily Bronchitis - COVID/RSV/Flu A/B negavite - Prednisone 40 mg daily - Duoneb to q4 h scheduled and prn - check CXR - no abx at this time pending CXR ANNIA, suspect due to forced diuresis - stop IV lasix - Gentle sodium chloride 0.9% at 50 cc/hr - consult nephrology - check renal US - Baseline Cr 0.7 -Post void residual yesterday was 108, patient currently has not urinated today but bladder scanning for 250. Constipation - miralax 17 G X now Chronic: GERD Worsening vision Memory impairment Imaging: None new Data Review: Vitals temperature 97.9, pulse 116, blood pressure 121/72, O2 sat 97% on 2 L Laboratory analysis remarkable for BUN 53.5, creatinine 2.1 DVT prophylaxis: Heparin Anticipated discharge date: Pending Clinical Course Anticipated discharge place: Per patient SNF, per CM note the niece recommended returned to assisted living This dictation was prepared using [employer] voice recognition software. Though every attempt is made to correct errors during dictation some may still exist. Objective - Vital Signs Vital signs: Vital Signs Temp 97.9 F 08/23/22 07:23 Pulse 78 08/23/22 11:34 Resp 16 08/23/22 07:23 BP 121/72 08/23/22 07:23 Pulse Ox 97 08/23/22 07:40 FiO2 Intake & Output 08/22/22 08/23/22 08/23/22 18:59 06:59 18:59 Intake Total 480 240 Output Total 308 251 Balance 172 240 -251 Weight 87 kg Intake: Oral 480 240 Output: Urine 200 Post Void Residual 108 251 Other: Voiding Method External Catheter Diaper Diaper Incontinent Incontinent External Catheter External Catheter # Voids 2 1 # Bowel Movements 1 - Labs CBC & Chem 7: 08/20/22 19:26 08/23/22 05:57 Labs: Abnormal Lab Results - Last 24 Hours (Table) 08/22/22 08/23/22 Range/Units 05:45 05:57 Anion Gap 15.90 H (4.00-12.00) mmol/L BUN 39.9 H 53.5 H (9.0-27.0) mg/dL Creatinine 1.9 H 2.1 H (0.6-1.5) mg/dL Est GFR (CKD-EPI) 25 L 22 L (>=60) BUN/Creatinine Ratio 21.00 H 25.48 H (12.00-20.00) Ratio
--- NOTE | 2022-08-23 14:43 | XR ---
EXAMINATION TYPE: XR chest 1V portable DATE OF EXAM: 08/23/2022 COMPARISON: 08/20/2022 HISTORY: Difficulty breathing TECHNIQUE: Single frontal view of the chest is obtained. FINDINGS: There is no focal air space opacity, pleural effusion, or pneumothorax seen. There are med shantel sternotomy wires in the cardiac silhouette is normal in size. The osseous structures are intact. IMPRESSION: No acute process.
[2022-08-23] MEDS: guaiFENesin 600 MG TABLET.ER PO SCH ×2 (15:16→22:30)
[2022-08-23] MEDS: SODIUM CHLORIDE 0.9% 1,000 ML IV SCH (15:17)
[2022-08-23] MEDS: IPRATROPIUM-ALBUTEROL 3 ML NEB INHALATION SCH ×3 (15:25→23:07)
[2022-08-23] MEDS: predniSONE 20 MG TAB PO SCH (15:43)
--- NOTE | 2022-08-23 16:15 | US ---
EXAMINATION TYPE: US renals and bladder DATE OF EXAM: 08/23/2022 Exam done portable COMPARISON: CT 2021 CLINICAL INDICATION: Female, 87 years old with history of ANNIA; EXAM MEASUREMENTS: Right Kidney: 9.4 x 4.7 x 4.4 cm Left Kidney: 10.0 x 5.5 x 4.9 cm Right Kidney: No hydronephrosis or masses seen Left Kidney: limited by overlying bowel gas, no hydronephrosis or masses seen Bladder: not distended There is no evidence for hydronephrosis at this point in time. No nephrolithiasis is seen. No virginia s are identified. The urinary bladder is anechoic. Bilateral ureteral jets are seen. The echotexture of the right renal cortex is hyperechoic and mildly thickened consistent with chronic medical renal disease. IMPRESSION: 1. Findings consistent with chronic medical renal disease involving the right kidney. 2. No renal masses, hydronephrosis or renal calcifications.
[2022-08-23] MEDS: ATORVASTATIN 40 MG TAB PO SCH (21:29)
[2022-08-23] MEDS: DONEPEZIL 5 MG TAB PO SCH (21:29)
[2022-08-23] MEDS: LATANOPROST 0.005% OPHTH DROPS 2.5 ML BTL RIGHT EYE SCH (21:29)
[2022-08-24] MEDS: IPRATROPIUM-ALBUTEROL 3 ML NEB INHALATION SCH ×6 (04:09→23:57)
[2022-08-24 07:13] LABS: HCT 35.4 % (34.0-46.0); HGB 11.8 gm/dL (11.4-16.0); MCH 30.8 pg (25.0-35.0); MCHC 33.4 g/dL (31.0-37.0); MCV 92.2 fL (80.0-100.0); Mean Platelet Volume 9.6; Platelet Count 129 k/uL (150-450); RBC 3.84 m/uL (3.80-5.40); RDW 14.1 % (11.5-15.5); WBC 4.3 k/uL (3.8-10.6)
[2022-08-24 07:22] LABS: African American GFR (CKD) 40 (>60 ml/min/1.73 sqM); Anion Gap 12 mmol/L; Blood Urea Nitrogen 55 mg/dL (7-17); Carbon Dioxide 27 mmol/L (22-30); Chloride 98 mmol/L (98-107); Glucose 136 mg/dL (74-99); Non-African American GFR(CKD) 34 (>60 ml/min/1.73 sqM); Potassium 4.2 mmol/L (3.5-5.1); Sodium 137 mmol/L (137-145)
--- NOTE | 2022-08-24 07:39 | PN ---
PROGRESS NOTE SUBJECTIVE: An 87-year-old lady, who is admitted to hospital with shortness of breath due to a combination of CHF and COPD exacerbation. The patient is on IV Lasix, developed renal insufficiency and we cut back on the dose of her Lasix yesterday. Her BUN was 40, creatinine was 1.9. I do not have labs from this morning. An echocardiogram on this admission revealed an aortic valve prosthesis that has a peak gradient of across the valve suggestive of prosthetic valve dysfunction. The patient opted not to have anything done about the valve at this time. OBJECTIVE: GENERAL: She is comfortable at rest. VITAL SIGNS: Stable. CHEST: Reveals bilateral wheezing. HEART: Reveals first and second heart sounds, an ejection systolic murmur in the aortic area. ABDOMEN: Soft. EXTREMITIES: Did not reveal any edema. IMAGING DATA: A chest x-ray on this admission revealed cardiomegaly, pulmonary venous congestion suggestive of congestive heart failure. ASSESSMENT: 1. Acute onset congestive heart failure, probably diastolic. 2. Status post aortic valve replacement with prosthetic valve dysfunction with the peak gradient of across the valve in a patient who apparently opted not to have anything done about it. PLAN: I will continue with the Lasix. Follow the electrolytes. She is getting nebulizers. I will talk to primary and see if the patient should be started on steroids and antibiotics to benefit her. MMODL / IJN: [id number] /
[2022-08-24] MEDS: HEPARIN SODIUM,PORCINE/PF 5,000 UNIT/0.5 ML SYRINGE SQ SCH ×3 (08:17→23:16)
[2022-08-24] MEDS: predniSONE 20 MG TAB PO SCH (08:18)
[2022-08-24] MEDS: DIVALPROEX 250 MG TABLET.DR PO SCH (08:18)
[2022-08-24] MEDS: SENNOSIDES 8.6 MG TAB PO SCH ×2 (08:18→21:16)
[2022-08-24] MEDS: guaiFENesin 600 MG TABLET.ER PO SCH ×2 (08:18→21:16)
[2022-08-24] MEDS: PANTOPRAZOLE 40 MG TABLET PO SCH (08:18)
[2022-08-24] MEDS: CHOLECALCIFEROL 125 MCG (5000 IU) TABLET PO SCH (08:18)
[2022-08-24] MEDS: METOPROLOL SUCCINATE (ER) 25 MG TAB.ER.24H PO SCH (08:18)
[2022-08-24] MEDS: MEMANTINE 5 MG TAB PO SCH ×2 (08:19→21:16)
[2022-08-24] MEDS: PARoxetine 20 MG TAB PO SCH (08:19)
[2022-08-24] MEDS: SODIUM CHLORIDE 0.9% 1,000 ML IV SCH (08:20)
--- NOTE | 2022-08-24 10:51 | P.PN ---
Subjective HISTORY OF PRESENT ILLNESS: This is an 87-year-old female patient of Dr. Montero with past medical history of severe aortic stenosis with normal EF and history of prosthetic AV, hypertension, dyslipidemia, memory loss. We have been asked to evaluate the patient for CHF exacerbation. Patient states that she developed shortness of breath that had progressively worsened over the past week, dyspnea with minimal exertion. Patient denies having any chest pain. No fever or chills. She does complain of cough without sputum. Patient presented to the emergency center and she was found to be afebrile, heart rate has been in the 60s, initial blood pressure readings were elevated. Patient received 1 dose of IV Lasix 40 mg emergency center. Patient was last seen in the office in February 2020. At that time Dr. Montero discussed with the patient and her daughter the option of TAVR and patient states that she discussed with her PCP and PCP recommended to not pursue the procedure. EKG W BC 4.9, hemoglobin 11.8, platelet count 112. INR 1. Sodium 134, potassium 4.3, BUN 31 creatinine 1.18. Liver function tests are normal. Troponin negative 1. ProBNP 3070. Influenza A, influenza B, RSV and Covid 19 not detected. Chest x-ray reveals cardiomegaly with pulmonary venous congestion scattered infiltrates as well as small right-sided pleural effusion suggested of congestive heart failure. Home cardiac medications: Atorvastatin 40 mg, Lasix 40 mg in the morning and 20 in the afternoon, lisinopril 20 mg as needed, Toprol-XL 25 mg daily. 08/22 Patient is seen today in follow-up. Patient states that she has improvement of her shortness of breath. He she also relates that she has obstructive sleep apnea but her insurance will no longer be covered for CPAP. She has been on Lasix 40 mg every 8 hours with minimal urine output. Documented urine output of 700 ML's. Patient had a bladder scan this morning for 100 mL. Heart rate is running in the 60s and 80s, blood pressure 122/82. Echocardiogram reveals EF of 55%, aortic valve is poorly seen but appears to be with significant stenosis with a mean gradient of 4040 5 mmHg. The rest of the Doppler is suboptimal. Morning blood work has not been reported at the time of this dictation. 08/24/2022 Patient examined this morning at the bedside. Patient denies chest pain or pressure. She denies shortness of breath. Patient is maintained on IV fluids at 50 mL an hour. Kidney function is improving today at 1.3. PHYSICAL EXAM: VITAL SIGNS: Reviewed. GENERAL: Well-developed in no acute distress. NECK: Supple. No JVD or thyromegaly LUNGS: Respirations even and unlabored. Lungs essentially clear to auscultation bilaterally. HEART: Regular rate and rhythm. S1 and S2 heard. EXTREMITIES: Normal range of motion. No clubbing or cyanosis. Peripheral pulses intact. No lower extremity edema ASSESSMENT: Acute diastolic heart failure Acute renal failure Severe aortic stenosis status post prosthetic valve Severe stenosis of the prosthetic valve, patient wishes for conservative medical management at this point Hypertension Hyperlipidemia Memory loss Obstructive sleep apnea PLAN: Continue to monitor renal function. If continued improvement by tomorrow, recommend resuming oral lasix Patient is stable from a cardiac standpoint We will sign off. Please reconsult if needed. Nurse practitioner note has been reviewed by physician. Signing provider agrees with the documented findings, assessment, and plan of care. Objective - Vital Signs Vital signs: Vital Signs Temp 97.9 F 08/24/22 07:27 Pulse 64 08/24/22 09:00 Resp 18 08/24/22 07:27 BP 147/67 08/24/22 07:27 Pulse Ox 95 08/24/22 08:52 FiO2 Intake & Output 08/23/22 08/24/22 08/24/22 18:59 06:59 18:59 Intake Total 780 Output Total 510 400 Balance 270 -400 Weight 86 kg Intake: Oral 780 Output: Urine 200 400 Post Void Residual 310 Other: Voiding Method Diaper Diaper Diaper Incontinent Incontinent Incontinent External Catheter External Catheter External Catheter # Voids 1 1 # Bowel Movements 1 1 - Labs CBC & Chem 7: 08/24/22 05:48 08/24/22 05:48 Labs: Abnormal Lab Results - Last 24 Hours (Table) 08/23/22 08/24/22 08/24/22 Range/Units 05:57 05:48 05:48 Plt Count 129 L (150-450) k/uL BUN 53.5 H 55 H (9.0-27.0) mg/dL Creatinine 2.1 H 1.38 H (0.6-1.5) mg/dL Est GFR (CKD-EPI) 22 L (>=60) BUN/Creatinine Ratio 25.48 H (12.00-20.00) Ratio Glucose 136 H (74-99) mg/dL
--- NOTE | 2022-08-24 12:27 | P.NPCON ---
History of Present Illness - Reason for Consult acute renal failure - History of Present Illness Patient is an 87-year-old female with history of coronary artery disease, CHF who was admitted to the hospital with shortness of breath and volume overload. Patient has been diuresed with IV Lasix. No prior history of kidney diseases. Serum creatinine was 1.1 on initial admission and increased to 1.9 and then 2.1 mg/dL yesterday. It appears that patient was started on IV fluids yesterday and creatinine today is down to 1.38. Patient denies any urinary symptoms. Post void residual is not elevated. Blood pressure is not low. Ultrasound is unremarkable. No nephrotoxic agents noted. Past Medical History Past Medical History: Coronary Artery Disease (CAD), Heart Failure, GERD/Reflux, Hyperlipidemia, Hypertension Additional Past Medical History / Comment(s): , AORTIC VALVE REPLACEMENT 10 YEARS AGO History of Any Multi-Drug Resistant Organisms: None Reported Past Surgical History: Cardiac Valve Replacement Past Anesthesia/Blood Transfusion Reactions: No Reported Reaction Past Psychological History: No Psychological Hx Reported Smoking Status: Never smoker Past Alcohol Use History: None Reported Past Drug Use History: None Reported - Past Family History Mother Family Medical History: Hypertension Medications and Allergies Home Medications Medication Instructions Recorded Confirmed Type Metoprolol Succinate (ER) [Toprol 25 mg PO DAILY 02/07/21 08/20/22 History XL] Omeprazole 20 mg PO DAILY 02/07/21 08/20/22 History PARoxetine HCL [Paxil] 40 mg PO DAILY 02/07/21 08/20/22 History Ammonium Lactate Lotion 1 applic TOPICAL Q12H 02/25/21 08/20/22 History [Lac-Hydrin 12% Lotion] Bismuth Subsalicylate 524 mg PO Q4H PRN 02/25/21 08/20/22 History [Pepto-Bismol] Furosemide [Lasix] 20 mg PO DAILY@1600 02/25/21 08/20/22 History Potassium Chloride ER [K-Dur 20] 20 meq PO DAILY 02/25/21 08/20/22 History Acetaminophen Tab [Tylenol] 650 mg PO Q4HR PRN tab 03/06/21 08/20/22 Rx traMADol HCl [Ultram] 50 mg PO Q6HR PRN tab 03/06/21 08/20/22 Rx Albuterol Nebulized [Ventolin 2.5 mg INHALATION RT-TID 08/20/22 08/20/22 History Nebulized] Atorvastatin Calcium [Lipitor] 40 mg PO DIRECTED 08/20/22 08/20/22 History Cholecalciferol [Vitamin D3 (125 125 mcg PO DAILY 08/20/22 08/20/22 History Mcg = 5000 Iu)] Divalproex [Depakote] 250 mg PO DAILY 08/20/22 08/20/22 History Donepezil [Aricept] 5 mg PO HS 08/20/22 08/20/22 History Furosemide [Lasix] 40 mg PO DAILY 08/20/22 08/20/22 History Hydrocortisone Cream 1 applic TOPICAL BID 08/20/22 08/20/22 History [Hydrocortisone 2.5% Cream] Latanoprost [Latanoprost 0.005%] 1 drop RIGHT EYE HS 08/20/22 08/20/22 History Memantine [Namenda] 5 mg PO BID 08/20/22 08/20/22 History Nystatin 100,000Unit/gm Cream 1 applic TOPICAL BID 08/20/22 08/20/22 History [Mycostatin Cream] Sennosides [Senokot] 8.6 mg PO BID 08/20/22 08/20/22 History lisinopriL [Zestril] 20 mg PO DAILY PRN 08/20/22 08/20/22 History Allergies Allergy/AdvReac Type Severity Reaction Status Date / Time No Known Allergies Allergy Verified 08/20/22 22:49 Physical Exam Vitals: Vital Signs Temp Pulse Pulse Resp BP Pulse Ox 08/24/22 11:56 66 08/24/22 11:46 66 08/24/22 09:00 64 08/24/22 08:52 62 95 08/24/22 07:27 97.9 F 71 18 147/67 98 08/24/22 04:26 72 08/24/22 04:11 72 08/24/22 01:49 98.7 F 71 20 129/81 98 08/23/22 23:13 64 08/23/22 23:08 60 08/23/22 20:00 98.0 F 59 L 16 131/93 95 08/23/22 19:55 16 08/23/22 19:37 88 08/23/22 19:27 82 08/23/22 15:37 82 08/23/22 15:25 80 08/23/22 13:42 98.1 F 63 16 114/64 94 L Intake and Output 08/23/22 08/24/22 08/24/22 22:59 06:59 14:59 Intake Total 780 Output Total 259 400 Balance 521 -400 Intake: Oral 780 Output: Urine 200 400 Post Void Residual 59 Other: Voiding Method Diaper Diaper Incontinent Incontinent External Catheter External Catheter # Voids 1 1 # Bowel Movements 1 1 Weight 86 kg Patient is awake, comfortable, no acute distress Examination of the heart S1 and S2 Examination the lungs decreased breath sounds at the bases Abdomen is soft nontender Examination of lower extremities shows no significant edema 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 Acute kidney injury associated with recent diuresis. Renal function has improved with gentle IV hydration. I will hold off on the fluids today given her admission for volume overload and CHF exacerbation. No evidence of urine retention. Check UA. Ultrasound is unremarkable 2. Acute CHF with preserved ejection fraction 3. Severe aortic stenosis status post prosthetic valve with subsequent stenosis of the prosthetic valve. 4. Hypertension, controlled Plan: Hold IV fluids and diuretics for today Reevaluate volume status in a.m. Check UA Continue to avoid nephrotoxic agents Repeat labs in a.m. Thank you for the consultation. We will continue to follow the patient with you during her hospitalization.
--- NOTE | 2022-08-24 20:15 | P.PN ---
Progress Note - Text Progress Note Date: 08/24/22 Patient is an 87 year old female with history of CHF, CAD admitted for diastolic CHF exacerbation. Chest x-ray in the ED shows bilateral pulmonary vascular congestion. Creatinine was 1.18, proBNP 3070. Patient was started on IV Lasix. Cardiology consulted. Echocardiogram showed likely significant aortic valve stenosis, LV systolic function was normal. She was continued on diuresis. Patient seen and examined at bedside. She complains of difficulty with urination. Post void residual was 108 yesterday. Denies any chest pain. Continues to have some shortness of breath and cough. 08/24/2022: I assumed care of the patient today. Up in a recliner.. Some congested cough. Eating better. Tired. Had a lengthy discussion with the patient about long-term care. Questions answered. Patient had acute kidney injury. Gentle hydration. Creatinine is improving. Also being followed by nephrology. Active Medications Acetaminophen (Acetaminophen Tab 325 Mg Tab) 650 mg PO Q4HR PRN PRN Reason: Fever and/ or Mild Pain Albuterol/Ipratropium (Ipratropium-Albuterol 3 Ml Neb) 3 ml INHALATION RT-Q2H PRN PRN Reason: Shortness Of Breath Or Wheezing Albuterol/Ipratropium (Ipratropium-Albuterol 3 Ml Neb) 3 ml INHALATION RT-Q4H [facility] Last Admin: 08/24/22 19:44 Dose: 3 ml Artificial Tears (Artificial Tears-Hypromellose Drops 15 Ml Btl) 2 drops BOTH EYES QID PRN PRN Reason: Dry Eye(s) Last Admin: 08/23/22 15:17 Dose: 2 drops Atorvastatin Calcium (Atorvastatin 40 Mg Tab) 40 mg PO [facility] Last Admin: 08/23/22 21:29 Dose: 40 mg Cholecalciferol (Cholecalciferol 125 Mcg (5000 Iu) Tablet) 125 mcg PO DAILY [facility] Last Admin: 08/24/22 08:18 Dose: 125 mcg Divalproex Sodium (Divalproex 250 Mg Tablet.Dr) 250 mg PO DAILY [facility] Last Admin: 08/24/22 08:18 Dose: 250 mg Donepezil HCl (Donepezil 5 Mg Tab) 5 mg PO [facility] Last Admin: 08/23/22 21:29 Dose: 5 mg Guaifenesin (Guaifenesin 600 Mg Tablet.Er) 600 mg PO Q12HR [facility] Last Admin: 08/24/22 08:18 Dose: 600 mg Heparin Sodium (Porcine) (Heparin Sodium,Porcine/Pf 5,000 Unit/0.5 Ml Syringe) 5,000 unit SQ Q8HR [facility] Last Admin: 08/24/22 16:45 Dose: 5,000 unit Latanoprost (Latanoprost 0.005% Ophth Drops 2.5 Ml Btl) 1 drops RIGHT EYE HS [facility] Last Admin: 08/23/22 21:29 Dose: 1 drops Memantine (Memantine 5 Mg Tab) 5 mg PO BID [facility] Last Admin: 08/24/22 08:19 Dose: 5 mg Metoprolol Succinate (Metoprolol Succinate (Er) 25 Mg Tab.Er.24h) 25 mg PO DAILY [facility] Last Admin: 08/24/22 08:18 Dose: 25 mg Pantoprazole Sodium (Pantoprazole 40 Mg Tablet) 40 mg PO [facility]KFST [facility] Last Admin: 08/24/22 08:18 Dose: 40 mg Paroxetine HCl (Paroxetine 20 Mg Tab) 40 mg PO DAILY [facility] Last Admin: 08/24/22 08:19 Dose: 40 mg Prednisone (Prednisone 20 Mg Tab) 40 mg PO DAILY [facility] Last Admin: 08/24/22 08:18 Dose: 40 mg Senna (Sennosides 8.6 Mg Tab) 8.6 mg PO BID [facility] Last Admin: 08/24/22 08:18 Dose: 8.6 mg On examination: VITAL SIGNS: [98.3, 87, 18, 158/74, 92% room air] GENERAL APPEARANCE: BMI 34.7, markus recliner, occasional cough HEENT: Normal external appearance of nose and ear. Oral cavity normal EYES: Pupils equal. Conjunctiva normal. NECK: JVD unable to assess. Mass not palpable. RESPIRATORY: Respiratory effort increased. Lungs decreased breath sounds. CARDIOVASCULAR: First and second sounds normal. No edema. ABDOMEN: Soft. Liver and spleen not palpable. No tenderness. No mass palpable. PSYCHIATRY: Alert and oriented x3. Mood and affect normal. INVESTIGATIONS, reviewed in the clinical context: August 24: White count 4.3 hemoglobin 11.8 platelets 129 potassium 4.2 BUN 55 creatinine 1.38 Previous labs: Creatinine 1.18 on August 20. 2.1 on Tammi 2 Influenza type A, diabetes, RSV, COVID-19: Not detected Renal ultrasound: Findings consistent with chronic kidney disease. Involving the right kidney. 2-D echocardiogram: EF 55%. Technically difficult and limited study. Significant aortic stenosis. Gradient 40-45 mm. Assessment/Plan: Acute diastolic CHF, with EF 55-60% : Better Severe aortic stenosis, s/p prosthetic valve HTN HLD CAD Follow with cardiology -Continue with Lipitor 40 mg at night, metoprolol 25 mg daily Acute Bronchitis - COVID/RSV/Flu A/B negavite - Prednisone 40 mg daily - Duoneb to q4 h scheduled and prn ANNIA, suspect due to forced diuresis, prerenal - stop IV lasix - Gentle sodium chloride 0.9% at 50 cc/hr - Follow nephrology - Ultrasound shows evidence of CK D - Baseline Cr 0.7 Constipation - miralax 17 G Chronic: GERD Worsening vision Cognitive impairment Seen by nephrology. IV fluids discontinued. Decreased prednisone to 30 mg. Discussed with patient at length. Questions answered.
[2022-08-24] MEDS: LATANOPROST 0.005% OPHTH DROPS 2.5 ML BTL RIGHT EYE SCH (21:16)
[2022-08-24] MEDS: DONEPEZIL 5 MG TAB PO SCH (21:16)
[2022-08-24] MEDS: ATORVASTATIN 40 MG TAB PO SCH (21:16)
[2022-08-25 02:23] LABS: Amorphous Sediment,Urine Few /hpf; Appearance,Urine Cloudy (Clear); Bacteria,Urine Many /hpf; Bilirubin,Urine Negative (Negative); Blood,Urine Small (Negative); Budding Yeast,Urine Occasional /hpf; Calcium Oxalate Crystals,Urine Occasional /hpf; Color,Urine Yellow; Glucose,Urine (UA) Negative (Negative); Granular Casts,Urine 1 /lpf (0); Ketones,Urine Negative (Negative); Leukocyte Esterase,Urine Large (Negative); Nitrite,Urine Negative (Negative); PH, Urine 5.5 (5.0-8.0); Protein,Urine Trace (Negative); RBC,Urine 26 /hpf (0-5); Specific Gravity,Urine 1.019 (1.001-1.035); Squamous Epithelial Cell,Urine 1 /hpf (0-4); Urobilinogen,Urine <2.0 mg/dL (<2.0); WBC,Urine 25 /hpf (0-5)
[2022-08-25] MEDS: IPRATROPIUM-ALBUTEROL 3 ML NEB INHALATION SCH ×6 (03:36→23:05)
[2022-08-25] MEDS: CHOLECALCIFEROL 125 MCG (5000 IU) TABLET PO SCH (08:46)
[2022-08-25] MEDS: HEPARIN SODIUM,PORCINE/PF 5,000 UNIT/0.5 ML SYRINGE SQ SCH ×3 (08:46→23:24)
[2022-08-25] MEDS: METOPROLOL SUCCINATE (ER) 25 MG TAB.ER.24H PO SCH (08:46)
[2022-08-25] MEDS: SENNOSIDES 8.6 MG TAB PO SCH ×2 (08:46→22:13)
[2022-08-25] MEDS: MEMANTINE 5 MG TAB PO SCH ×2 (08:47→22:13)
[2022-08-25] MEDS: DIVALPROEX 250 MG TABLET.DR PO SCH (08:47)
[2022-08-25] MEDS: guaiFENesin 600 MG TABLET.ER PO SCH ×2 (08:47→22:13)
[2022-08-25] MEDS: PANTOPRAZOLE 40 MG TABLET PO SCH (08:47)
[2022-08-25] MEDS: PARoxetine 20 MG TAB PO SCH (08:47)
[2022-08-25] MEDS: predniSONE 10 MG TAB PO SCH (08:50)
--- NOTE | 2022-08-25 12:14 | P.PN ---
Subjective Patient is seen for follow-up for acute kidney injury. Renal function improved with IV hydration. Serum creatinine down to 1.3 from 2.1 at peak. No complaints today. Patient was in tears as she felt lonely since she was the only alive member of [facility] whole family. Objective - Vital Signs Vital signs: Vital Signs Temp 97.5 F L 08/25/22 07:55 Pulse 69 08/25/22 11:50 Resp 16 08/25/22 07:55 BP 161/55 08/25/22 07:55 Pulse Ox 95 08/25/22 08:37 FiO2 Intake & Output 08/24/22 08/25/22 08/25/22 18:59 06:59 18:59 Intake Total 598 250 Output Total 400 300 Balance 198 -50 Weight 86.5 kg Intake: Oral 598 250 Output: Urine 400 300 Other: Voiding Method Diaper Diaper Bedside Commode Incontinent Incontinent Diaper External Catheter External Catheter # Voids 1 1 # Bowel Movements 1 1 - Exam Patient is awake, comfortable, no acute distress Examination of the heart S1 and S2 Examination the lungs decreased breath sounds at the bases Abdomen is soft nontender Examination of lower extremities shows no significant edema 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 Acute kidney injury associated with recent diuresis. Renal function has improved with gentle IV hydration. I will hold off on the fluids given her admission for volume overload and CHF exacerbation. No evidence of urine retention. Ultrasound is unremarkable 2. Acute CHF with preserved ejection fraction 3. Severe aortic stenosis status post prosthetic valve with subsequent stenosis of the prosthetic valve. 4. Hypertension, controlled Plan: Continue to encourage increase oral intake Continue off of IV fluids.
--- NOTE | 2022-08-25 21:23 | P.PN ---
Progress Note - Text Progress Note Date: 08/25/22 Patient is an 87 year old female with history of CHF, CAD admitted for diastolic CHF exacerbation. Chest x-ray in the ED shows bilateral pulmonary vascular congestion. Creatinine was 1.18, proBNP 3070. Patient was started on IV Lasix. Cardiology consulted. Echocardiogram showed likely significant aortic valve stenosis, LV systolic function was normal. She was continued on diuresis. Patient seen and examined at bedside. She complains of difficulty with urination. Post void residual was 108 yesterday. Denies any chest pain. Continues to have some shortness of breath and cough. 08/24/2022: I assumed care of the patient today. Up in a recliner.. Some congested cough. Eating better. Tired. Had a lengthy discussion with the patient about long-term care. Questions answered. Patient had acute kidney injury. Gentle hydration. Creatinine is improving. Also being followed by nephrology. August 25: Up in a recliner. Breathing comfortable. Eating better. Patient does feel lonely as a lot of her family members have . Patient like to be discharged tomorrow. IV fluids held. Active Medications Acetaminophen (Acetaminophen Tab 325 Mg Tab) 650 mg PO Q4HR PRN PRN Reason: Fever and/ or Mild Pain Albuterol/Ipratropium (Ipratropium-Albuterol 3 Ml Neb) 3 ml INHALATION RT-Q2H PRN PRN Reason: Shortness Of Breath Or Wheezing Albuterol/Ipratropium (Ipratropium-Albuterol 3 Ml Neb) 3 ml INHALATION RT-Q4H [facility] Last Admin: 08/25/22 20:15 Dose: 3 ml Artificial Tears (Artificial Tears-Hypromellose Drops 15 Ml Btl) 2 drops BOTH EYES QID PRN PRN Reason: Dry Eye(s) Last Admin: 08/23/22 15:17 Dose: 2 drops Atorvastatin Calcium (Atorvastatin 40 Mg Tab) 40 mg PO HS [facility] Last Admin: 08/24/22 21:16 Dose: 40 mg Cholecalciferol (Cholecalciferol 125 Mcg (5000 Iu) Tablet) 125 mcg PO DAILY [facility] Last Admin: 08/25/22 08:46 Dose: 125 mcg Divalproex Sodium (Divalproex 250 Mg Tablet.) 250 mg PO DAILY [facility] Last Admin: 08/25/22 08:47 Dose: 250 mg Donepezil HCl (Donepezil 5 Mg Tab) 5 mg PO HS [facility] Last Admin: 08/24/22 21:16 Dose: 5 mg Guaifenesin (Guaifenesin 600 Mg Tablet.Er) 600 mg PO Q12HR [facility] Last Admin: 08/25/22 08:47 Dose: 600 mg Heparin Sodium (Porcine) (Heparin Sodium,Porcine/Pf 5,000 Unit/0.5 Ml Syringe) 5,000 unit SQ Q8HR [facility] Last Admin: 08/25/22 16:28 Dose: 5,000 unit Latanoprost (Latanoprost 0.005% Ophth Drops 2.5 Ml Btl) 1 drops RIGHT EYE HS [facility] Last Admin: 08/24/22 21:16 Dose: 1 drops Memantine (Memantine 5 Mg Tab) 5 mg PO BID [facility] Last Admin: 08/25/22 08:47 Dose: 5 mg Metoprolol Succinate (Metoprolol Succinate (Er) 25 Mg Tab.Er.24h) 25 mg PO DAILY [facility] Last Admin: 08/25/22 08:46 Dose: 25 mg Pantoprazole Sodium (Pantoprazole 40 Mg Tablet) 40 mg PO AC-BRKFST [facility] Last Admin: 08/25/22 08:47 Dose: 40 mg Paroxetine HCl (Paroxetine 20 Mg Tab) 40 mg PO DAILY [facility] Last Admin: 08/25/22 08:47 Dose: 40 mg Prednisone (Prednisone 10 Mg Tab) 30 mg PO DAILY [facility] Last Admin: 08/25/22 08:50 Dose: 30 mg Senna (Sennosides 8.6 Mg Tab) 8.6 mg PO BID [facility] Last Admin: 08/25/22 08:46 Dose: 8.6 mg On examination: VITAL SIGNS: 98.1, 75, 16, 157/63, 96% room air GENERAL APPEARANCE: BMI 34.7, markus recliner, comfortable HEENT: Normal external appearance of nose and ear. Oral cavity normal EYES: Pupils equal. Conjunctiva normal. NECK: JVD unable to assess. Mass not palpable. RESPIRATORY: Respiratory effort normal. Lungs decreased breath sounds. CARDIOVASCULAR: First and second sounds normal. No edema. ABDOMEN: Soft. Liver and spleen not palpable. No tenderness. No mass palpable. PSYCHIATRY: Alert and oriented x3. Mood and affect normal. INVESTIGATIONS, reviewed in the clinical context: August 24: White count 4.3 hemoglobin 11.8 platelets 129 potassium 4.2 BUN 55 creatinine 1.38 Previous labs: Creatinine 1.18 on August 20. 2.1 on August 23 Influenza type A, diabetes, RSV, COVID-19: Not detected Renal ultrasound: Findings consistent with chronic kidney disease. Involving the right kidney. 2-D echocardiogram: EF 55%. Technically difficult and limited study. Significant aortic stenosis. Gradient 40-45 mm. Assessment/Plan: Acute diastolic CHF, with EF 55-60% : Better Severe aortic stenosis, s/p prosthetic valve HTN HLD CAD Follow with cardiology -Continue with Lipitor 40 mg at night, metoprolol 25 mg daily Acute Bronchitis - COVID/RSV/Flu A/B negavite - Prednisone 40 mg daily - Duoneb to q4 h scheduled and prn ANNIA, suspect due to forced diuresis, prerenal - stop IV lasix - Gentle sodium chloride 0.9% at 50 cc/hr - Follow nephrology - Ultrasound shows evidence of CK D - Baseline Cr 0.7 Constipation - miralax 17 G Chronic: GERD Worsening vision Cognitive impairment Improving. Discussed at length with the patient. Plan for discharge tomorrow. Repeat labs tomorrow. No UTI. No symptoms.
[2022-08-25] MEDS: ATORVASTATIN 40 MG TAB PO SCH (22:12)
[2022-08-25] MEDS: DONEPEZIL 5 MG TAB PO SCH (22:13)
[2022-08-25] MEDS: LATANOPROST 0.005% OPHTH DROPS 2.5 ML BTL RIGHT EYE SCH (22:13)
[2022-08-26] MEDS: IPRATROPIUM-ALBUTEROL 3 ML NEB INHALATION SCH ×3 (04:38→11:54)
[2022-08-26 07:50] LABS: African American GFR (CKD) 63 (>60 ml/min/1.73 sqM); Anion Gap 6 mmol/L; Blood Urea Nitrogen 36 mg/dL (7-17); Calcium 9.5 mg/dL (8.4-10.2); Carbon Dioxide 27 mmol/L (22-30); Chloride 107 mmol/L (98-107); Glucose 89 mg/dL (74-99); Non-African American GFR(CKD) 55 (>60 ml/min/1.73 sqM); Potassium 4.2 mmol/L (3.5-5.1); Sodium 140 mmol/L (137-145)
[2022-08-26 08:35] VITALS: BP 138/77; RESP 15; TEMP 98
[2022-08-26] MEDS: DIVALPROEX 250 MG TABLET.DR PO SCH (09:09)
[2022-08-26] MEDS: CHOLECALCIFEROL 125 MCG (5000 IU) TABLET PO SCH (09:09)
[2022-08-26] MEDS: HEPARIN SODIUM,PORCINE/PF 5,000 UNIT/0.5 ML SYRINGE SQ SCH (09:09)
[2022-08-26] MEDS: guaiFENesin 600 MG TABLET.ER PO SCH (09:10)
[2022-08-26] MEDS: SENNOSIDES 8.6 MG TAB PO SCH (09:10)
[2022-08-26] MEDS: predniSONE 10 MG TAB PO SCH (09:10)
[2022-08-26] MEDS: PANTOPRAZOLE 40 MG TABLET PO SCH (09:10)
[2022-08-26] MEDS: PARoxetine 20 MG TAB PO SCH (09:10)
[2022-08-26] MEDS: METOPROLOL SUCCINATE (ER) 25 MG TAB.ER.24H PO SCH (09:10)
[2022-08-26] MEDS: MEMANTINE 5 MG TAB PO SCH (09:10)
[2022-08-26 12:09] VITALS: PULSE 75
[2022-08-26] MEDS ORDERED: FUROSEMIDE 10 MG/ML 4 ML VIAL IV STA (13:02)
--- NOTE | 2022-08-26 13:02 | P.PN ---
Subjective Patient is seen for follow-up for acute kidney injury. Renal function improved with IV hydration. Serum creatinine down to 0.9 from 2.1 at peak. No complaints today. Objective - Vital Signs Vital signs: Vital Signs Temp 98 F 08/26/22 08:03 Pulse 75 08/26/22 12:05 Resp 15 08/26/22 08:03 BP 138/77 08/26/22 08:03 Pulse Ox 94 L 08/26/22 08:03 FiO2 Intake & Output 08/25/22 08/26/22 08/26/22 18:59 06:59 18:59 Weight 87 kg Other: Voiding Method Bedside Commode Bedside Commode Bedside Commode Diaper Diaper Diaper # Voids 1 3 # Bowel Movements 1 - Exam Patient is awake, comfortable, no acute distress Examination of the heart S1 and S2 Examination the lungs decreased breath sounds at the bases Abdomen is soft nontender Examination of lower extremities shows no significant edema 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 Acute kidney injury associated with recent diuresis. Renal function has improved with gentle IV hydration. I will hold off on the fluids given her admission for volume overload and CHF exacerbation. No evidence of urine retention. Ultrasound is unremarkable 2. Acute CHF with preserved ejection fraction 3. Severe aortic stenosis status post prosthetic valve with subsequent stenosis of the prosthetic valve. 4. Hypertension, controlled Plan: Resume diuretics. Continue to encourage increase oral intake Continue off of IV fluids.
--- NOTE | 2022-08-26 21:33 | P.DS ---
Providers Date of admission: 08/20/22 22:40 Expected date of discharge: 08/26/22 Attending physician: Dimitri Baires Consults: 08/23/22 11:24 Consult Physician Routine Consulting Provider: Domi Coy Consult Reason/Comments: ANNIA Do you want consulting provider notified?: Yes Primary care physician: Renzo Sauceda MD Hospital Course: Patient is an 87 year old female with history of CHF, CAD admitted for diastolic CHF exacerbation. Chest x-ray in the ED shows bilateral pulmonary vascular congestion. Creatinine was 1.18, proBNP 3070. Patient was started on IV Lasix. Cardiology consulted. Echocardiogram showed likely significant aortic valve stenosis, LV systolic function was normal. She was continued on diuresis. Patient seen and examined at bedside. She complains of difficulty with urination. Post void residual was 108 yesterday. Denies any chest pain. Continues to have some shortness of breath and cough. 08/24/2022: I assumed care of the patient today. Up in a recliner.. Some congested cough. Eating better. Tired. Had a lengthy discussion with the patient about long-term care. Questions answered. Patient had acute kidney injury. Gentle hydration. Creatinine is improving. Also being followed by nephrology. August 25: Up in a recliner. Breathing comfortable. Eating better. Patient does feel lonely as a lot of her family members have . Patient like to be discharged tomorrow. IV fluids held. August 26: Doing well. Oral intake good. Creatinine is come back to normal. Discussed with the patient. Patient discharged to [facility] On examination: VITAL SIGNS: 98, 64, 16, 1 30 x 77, 94% room air GENERAL APPEARANCE: BMI 34.7, comfortable HEENT: Normal external appearance of nose and ear. Oral cavity normal EYES: Pupils equal. Conjunctiva normal. NECK: JVD unable to assess. Mass not palpable. RESPIRATORY: Respiratory effort normal. Lungs decreased breath sounds. CARDIOVASCULAR: First and second sounds normal. No edema. ABDOMEN: Soft. Liver and spleen not palpable. No tenderness. No mass palpable. PSYCHIATRY: Alert and oriented x3. Mood and affect normal. INVESTIGATIONS, reviewed in the clinical context: August 26: Potassium 4.2 creatinine 0.94 August 24: White count 4.3 hemoglobin 11.8 platelets 129 potassium 4.2 BUN 55 creatinine 1.38 Previous labs: Creatinine 1.18 on August 20. 2.1 on August 23 Influenza type A, diabetes, RSV, COVID-19: Not detected Renal ultrasound: Findings consistent with chronic kidney disease. Involving the right kidney. 2-D echocardiogram: EF 55%. Technically difficult and limited study. Significant aortic stenosis. Gradient 40-45 mm. Assessment/Plan: Acute diastolic CHF, with EF 55-60% : Better Severe aortic stenosis, s/p prosthetic valve HTN HLD CAD Follow with cardiology -Continue with Lipitor 40 mg at night, metoprolol 25 mg daily Acute Bronchitis: Improved - COVID/RSV/Flu A/B negavite - Prednisone taper over 4 days - Duoneb to q4 h scheduled and prn ANNIA, suspect due to forced diuresis, prerenal: Improved Constipation - miralax 17 G Chronic: GERD Worsening vision Mild Cognitive impairment Disposition: Assisted-living. [facility] Plan - Discharge Summary Discharge Rx Participant: No New Discharge Prescriptions: New Artificial Tears-Hypromellose [Artificial Tear Drops] 2 drops BOTH EYES QID PRN #1 ml PRN Reason: Dry Eye(S) predniSONE 10 mg PO DAILY #6 tab Continue Omeprazole 20 mg PO DAILY Metoprolol Succinate (ER) [Toprol XL] 25 mg PO DAILY Ammonium Lactate Lotion [Lac-Hydrin 12% Lotion] 1 applic TOPICAL Q12H Acetaminophen Tab [Tylenol] 650 mg PO Q4HR PRN tab PRN Reason: Fever and/ or Mild Pain traMADol HCl [Ultram] 50 mg PO Q6HR PRN tab PRN Reason: Breakthrough Pain Albuterol Nebulized [Ventolin Nebulized] 2.5 mg INHALATION RT-TID Cholecalciferol [Vitamin D3 (125 Mcg = 5000 Iu)] 125 mcg PO DAILY Divalproex [Depakote] 250 mg PO DAILY Donepezil [Aricept] 5 mg PO HS Nystatin 100,000Unit/gm Cream [Mycostatin Cream] 1 applic TOPICAL BID Sennosides [Senokot] 8.6 mg PO BID PARoxetine HCL [Paxil] 40 mg PO DAILY Bismuth Subsalicylate [Pepto-Bismol] 524 mg PO Q4H PRN PRN Reason: Nausea Hydrocortisone Cream [Hydrocortisone 2.5% Cream] 1 applic TOPICAL BID Latanoprost [Latanoprost 0.005%] 1 drop RIGHT EYE HS Memantine [Namenda] 5 mg PO BID Changed Atorvastatin Calcium [Lipitor] 40 mg PO HS #0 lisinopriL [Zestril] 20 mg PO HS PRN #30 tab PRN Reason: HOLD IF SBP <110 No Action Potassium Chloride ER [K-Dur 20] 20 meq PO DAILY Furosemide [Lasix] 40 mg PO DAILY Furosemide [Lasix] 20 mg PO DAILY@1600 Discharge Medication List Metoprolol Succinate (ER) [Toprol XL] 25 mg PO DAILY 02/07/21 [History] Omeprazole 20 mg PO DAILY 02/07/21 [History] PARoxetine HCL [Paxil] 40 mg PO DAILY 02/07/21 [History] Ammonium Lactate Lotion [Lac-Hydrin 12% Lotion] 1 applic TOPICAL Q12H 02/25/21 [History] Bismuth Subsalicylate [Pepto-Bismol] 524 mg PO Q4H PRN 02/25/21 [History] Furosemide [Lasix] 20 mg PO DAILY@1600 02/25/21 [History] Potassium Chloride ER [K-Dur 20] 20 meq PO DAILY 02/25/21 [History] Acetaminophen Tab [Tylenol] 650 mg PO Q4HR PRN tab 03/06/21 [Rx] traMADol HCl [Ultram] 50 mg PO Q6HR PRN tab 03/06/21 [Rx] Albuterol Nebulized [Ventolin Nebulized] 2.5 mg INHALATION RT-TID 08/20/22 [History] Cholecalciferol [Vitamin D3 (125 Mcg = 5000 Iu)] 125 mcg PO DAILY 08/20/22 [History] Divalproex [Depakote] 250 mg PO DAILY 08/20/22 [History] Donepezil [Aricept] 5 mg PO HS 08/20/22 [History] Furosemide [Lasix] 40 mg PO DAILY 08/20/22 [History] Hydrocortisone Cream [Hydrocortisone 2.5% Cream] 1 applic TOPICAL BID 08/20/22 [History] Latanoprost [Latanoprost 0.005%] 1 drop RIGHT EYE HS 08/20/22 [History] Memantine [Namenda] 5 mg PO BID 08/20/22 [History] Nystatin 100,000Unit/gm Cream [Mycostatin Cream] 1 applic TOPICAL BID 08/20/22 [History] Sennosides [Senokot] 8.6 mg PO BID 08/20/22 [History] Artificial Tears-Hypromellose [Artificial Tear Drops] 2 drops BOTH EYES QID PRN #1 ml 08/26/22 [Rx] Atorvastatin Calcium [Lipitor] 40 mg PO HS #0 08/26/22 [Rx] lisinopriL [Zestril] 20 mg PO HS PRN #30 tab 08/26/22 [Rx] predniSONE 10 mg PO DAILY #6 tab 08/26/22 [Rx] Follow up Appointment(s)/Referral(s): Tania Montero MD [STAFF PHYSICIAN] - 1 Week (Please call and make follow up appointment the office as not available to make follow up appointment.) Renzo Sauceda MD [Primary Care Provider] - 1-2 days Discharge Disposition: TRANSFER TO SNF/ECF
[2022-08-27] MEDS ORDERED: FUROSEMIDE 40 MG TAB PO SCH (09:00)
== END 2022-08-26 14:34 | DRG 291 ==
LOC: EC 18:39 → 5NMEDONC 22:40
PROVIDERS: ADMIT Hospitalist; ATTEND Hospitalist
DX: I11.0 Hypertensive heart disease with heart failure (principal); I50.33 Acute on chronic diastolic (congestive) heart failure; J44.1 Chronic obstructive pulmonary disease with (acute) exacerbation; N17.9 Acute kidney failure, unspecified; F03.94 Unspecified dementia, unspecified severity, with anxiety; I25.10 Atherosclerotic heart disease of native coronary artery without angina pectoris; I35.0 Nonrheumatic aortic (valve) stenosis; Z20.822 Contact with and (suspected) exposure to COVID-19; J20.9 Acute bronchitis, unspecified; K21.9 Gastro-esophageal reflux disease without esophagitis; K59.00 Constipation, unspecified; G47.33 Obstructive sleep apnea (adult) (pediatric); E78.5 Hyperlipidemia, unspecified; Z79.899 Other long term (current) drug therapy; Z82.49 Family history of ischemic heart disease and other diseases of the circulatory system; Z95.2 Presence of prosthetic heart valve
CPT/HCPCS: 36415; 71045; 71046; 76770; 80048; 80053; 81001; 83605; 83735; 83880; 84484; 85025; 85027; 85610; 85730; 87636; 93005; 93306; 94640; 94760; 96374; 99285

== ENCOUNTER 2022-12-23 10:35 | Emergency (ER) | payer MEDICARE ==
[2022-12-23 11:18] LABS: Glucose,Whole Blood 115 mg/dL (70-110)
[2022-12-23 11:22] LABS: Basophils % (A) 0 %; Eosinophils # (A) 0.2 k/uL (0-0.7); Eosinophils % (A) 3 %; HGB 11.6 gm/dL (11.4-16.0); Lymphocytes # (A) 1.3 k/uL (1.0-4.8); Lymphocytes % (A) 25 %; MCHC 33.2 g/dL (31.0-37.0); MCV 90.3 fL (80.0-100.0); Monocytes # (A) 0.4 k/uL (0-1.0); Monocytes % (A) 8 %; Neutrophils # (A) 3.3 k/uL (1.3-7.7); Neutrophils % (A) 62 %; Platelet Count 163 k/uL (150-450); RBC 3.87 m/uL (3.80-5.40); RDW 13.9 % (11.5-15.5); WBC 5.3 k/uL (3.8-10.6)
[2022-12-23 11:38] LABS: Partial Thromboplastin Time 26.3 sec (22.0-30.0)
[2022-12-23 11:39] LABS: ALT 14 U/L (4-34); AST 25 U/L (14-36); African American GFR (CKD) 46 (>60 ml/min/1.73 sqM); Alkaline Phosphatase 77 U/L (38-126); Anion Gap 11 mmol/L; Blood Urea Nitrogen 49 mg/dL (7-17); Calcium 8.8 mg/dL (8.4-10.2); Carbon Dioxide 28 mmol/L (22-30); Chloride 103 mmol/L (98-107); Glucose 95 mg/dL (74-99); Non-African American GFR(CKD) 40 (>60 ml/min/1.73 sqM); Potassium 5.1 mmol/L (3.5-5.1); Sodium 142 mmol/L (137-145); Total Bilirubin 0.6 mg/dL (0.2-1.3); Total Protein 6.9 g/dL (6.3-8.2)
--- NOTE | 2022-12-23 12:08 | XR ---
EXAMINATION TYPE: XR chest 2V DATE OF EXAM: 12/23/2022 12:03 PM COMPARISON: Chest radiographs from 08/23/22 TECHNIQUE: XR chest 2V Frontal and lateral views of the chest. CLINICAL INDICATION:Female, 87 years old with history of altered mental status; FINDINGS: Lungs/Pleura: There is no evidence of pleural effusion, focal consolidation, or pneumothorax. Pulmonary vascularity: Pulmonary vascular congestion. Heart/mediastinum: Cardiomediastinal silhouette is enlarged and stable. Atherosclerotic calcificatio ns are seen in the aorta. Musculoskeletal: Multiple level degenerative disc disease changes seen throughout the spine. Midline sternotomy wires are noted and stable. IMPRESSION: Cardiomegaly and mild pulmonary vascular congestion. Correlate with BNP for congestive heart failure.
--- NOTE | 2022-12-23 12:17 | CT ---
EXAMINATION TYPE: CT brain wo con DATE OF EXAM: 12/23/2022 COMPARISON: 02/25/2021 HISTORY: AMS, hx dementia CT DLP: 1130.4 mGycm Automated exposure control for dose reduction was used. FINDINGS: Moderate generalized degenerative change. Hypoattenuation in the white matter compatible with remote microvascular ischemia. No midline shift or acute hemorrhage. Calcification left basal ganglia. There is intracranial atherosclerotic changes most marked involving cavernous segment bilateral ICA. Hypod ensity within the left thalamus compatible with remote lacunar infarct. Hypertrophic changes of the frontal bone compatible with hyperostosis. Mild diffuse osteopenia. IMPRESSION: 1. DEGENERATIVE AND REMOTE ISCHEMIC WHITE MATTER CHANGE WITH NO EVIDENCE OF ACUTE HEMORRHAGE OR MASS EFFECT.
[2022-12-23 13:42] LABS: Appearance,Urine Clear (Clear); Bilirubin,Urine Negative (Negative); Blood,Urine Negative (Negative); Color,Urine Colorless; Glucose,Urine (UA) Negative (Negative); Ketones,Urine Negative (Negative); Leukocyte Esterase,Urine Negative (Negative); Nitrite,Urine Negative (Negative); Protein,Urine Negative (Negative); Urobilinogen,Urine <2.0 mg/dL (<2.0)
--- NOTE | 2022-12-23 14:32 | ED ---
Altered Mental Status HPI - General Chief Complaint: Altered Mental Status Stated Complaint: AMS Time Seen by Provider: 12/23/22 10:50 Source: patient Mode of arrival: EMS Limitations: altered mental status - History of Present Illness Initial Comments: 87 year old female brought in from [facility] for altered mental status. Niece at bedside helps with history. Reports patient has significant dementia and will get into episodes where she is acutely confused. She will ramble on with things that happened in the past. Today the patient was talking about her mother and covid but details did not make sense to staff. She felt shaky so ems transported patient to hospital. Patient denies complaint at this time. Niece states patient is at her baseline. - Related Data Home Medications Medication Instructions Recorded Confirmed Metoprolol Succinate (ER) [Toprol 25 mg PO DAILY 02/07/21 12/23/22 XL] Omeprazole 20 mg PO DAILY 02/07/21 12/23/22 PARoxetine HCL [Paxil] 40 mg PO DAILY 02/07/21 12/23/22 Ammonium Lactate Lotion 1 applic TOPICAL Q12H 02/25/21 12/23/22 [Lac-Hydrin 12% Lotion] Bismuth Subsalicylate 524 mg PO Q4H PRN 02/25/21 12/23/22 [Pepto-Bismol] Furosemide [Lasix] 20 mg PO DAILY@1600 02/25/21 12/23/22 Potassium Chloride ER [K-Dur 20] 20 meq PO DAILY 02/25/21 12/23/22 Albuterol Nebulized [Ventolin 2.5 mg INHALATION RT-TID 08/20/22 12/23/22 Nebulized] Cholecalciferol [Vitamin D3 (125 125 mcg PO DAILY 08/20/22 12/23/22 Mcg = 5000 Iu)] Divalproex [Depakote] 250 mg PO DAILY 08/20/22 12/23/22 Donepezil [Aricept] 5 mg PO HS 08/20/22 12/23/22 Furosemide [Lasix] 40 mg PO DAILY 08/20/22 12/23/22 Hydrocortisone Cream 1 applic TOPICAL BID 08/20/22 12/23/22 [Hydrocortisone 2.5% Cream] Latanoprost [Latanoprost 0.005%] 1 drop RIGHT EYE HS 08/20/22 12/23/22 Memantine [Namenda] 5 mg PO BID 08/20/22 12/23/22 Nystatin 100,000Unit/gm Cream 1 applic TOPICAL BID 08/20/22 12/23/22 [Mycostatin Cream] Sennosides [Senokot] 8.6 mg PO BID 08/20/22 12/23/22 Cinacalcet [Sensipar] 30 mg PO DAILY 12/23/22 12/23/22 L.acidoph,Paracasei, B.lactis 1 cap PO BID 12/23/22 12/23/22 [Probiotic] Previous Rx's Medication Instructions Recorded Acetaminophen Tab [Tylenol] 650 mg PO Q4HR PRN tab 03/06/21 traMADol HCl [Ultram] 50 mg PO Q6HR PRN tab 03/06/21 Artificial Tears-Hypromellose 2 drops BOTH EYES QID PRN #1 ml 08/26/22 [Artificial Tear Drops] Atorvastatin Calcium [Lipitor] 40 mg PO HS #0 08/26/22 lisinopriL [Zestril] 20 mg PO HS PRN #30 tab 08/26/22 Allergies Allergy/AdvReac Type Severity Reaction Status Date / Time No Known Allergies Allergy Verified 12/23/22 11:28 Review of Systems ROS Statement: Those systems with pertinent positive or pertinent negative responses have been documented in the HPI. ROS Other: All systems not noted in ROS Statement are negative. Past Medical History Past Medical History: Coronary Artery Disease (CAD), Heart Failure, GERD/Reflux, Hyperlipidemia, Hypertension Additional Past Medical History / Comment(s): AORTIC VALVE REPLACEMENT 10 YEARS AGO History of Any Multi-Drug Resistant Organisms: None Reported Past Surgical History: Cardiac Valve Replacement Past Anesthesia/Blood Transfusion Reactions: No Reported Reaction Past Psychological History: No Psychological Hx Reported Smoking Status: Never smoker Past Alcohol Use History: None Reported Past Drug Use History: None Reported - Past Family History Mother Family Medical History: Hypertension General Exam Limitations: altered mental status General appearance: alert, in no apparent distress Head exam: Present: atraumatic, normocephalic, normal inspection Eye exam: Present: normal appearance, PERRL, EOMI. Absent: scleral icterus, conjunctival injection, periorbital swelling ENT exam: Present: normal exam, mucous membranes moist Neck exam: Present: normal inspection. Absent: tenderness, meningismus, lymphadenopathy Respiratory exam: Present: normal lung sounds bilaterally. Absent: respiratory distress, wheezes, rales, rhonchi, stridor Cardiovascular Exam: Present: regular rate, normal rhythm, normal heart sounds. Absent: systolic murmur, diastolic murmur, rubs, gallop, clicks GI/Abdominal exam: Present: soft, normal bowel sounds. Absent: distended, te nderness, guarding, rebound, rigid Extremities exam: Present: normal inspection, full ROM, normal capillary refill. Absent: tenderness, pedal edema, joint swelling, calf tenderness Back exam: Present: normal inspection Neurological exam: Present: alert, CN II-XII intact Psychiatric exam: Present: normal affect, normal mood Skin exam: Present: warm, dry, intact, normal color. Absent: rash Course Vital Signs 12/23/22 12/23/22 10:45 15:02 Temperature 97.6 F 98.2 F Pulse Rate 62 69 Respiratory 18 16 Rate Blood Pressure 161/63 163/97 O2 Sat by Pulse 97 98 Oximetry Medical Decision Making - Medical Decision Making Was pt. sent in by a medical professional or institution (, PA, SWIM COACH, urgent care, hospital, or penitentiary...) When possible be specific @ -ECF Did you speak to anyone other than the patient for history (EMS, parent, family, police, friend...)? What history was obtained from this source @ -Niece Did you review nursing and triage notes (agree or disagree)? Why? @ -I reviewed and agree with nursing and triage notes Were old charts reviewed (outside hosp., previous admission, EMS record, old EKG , old radiological studies, urgent care reports/EKG's, penitentiary records)? Report findings @ -No old charts were reviewed Differential Diagnosis (chest pain, altered mental status, abdominal pain women, abdominal pain men, vaginal bleeding, weakness, fever, dyspnea, syncope, headache, dizziness, GI bleed, back pain, seizure, CVA, palpatations, mental health, musculoskeletal)? @ -cva, uti, hypoglycemia EKG interpreted by me (3pts min.). @ -Yes and demonstrates sinus bradycardia with a rate of 51. CO interval 188. QRS 74. QTC of 413. No acute ST segment elevations or depressions X-rays interpreted by me (1pt min.). @ -None done CT interpreted by me (1pt min.). @ -yes, no acute process U/S interpreted by me (1pt. min.). @ -None done What testing was considered but not performed or refused? (CT, X-rays, U/S, labs)? Why? @ -None What meds were considered but not given or refused? Why? @ -None Did you discuss the management of the patient with other professionals (professionals i.e. DrRossi, PA, SWIM COACH, lab, RT, psych nurse, hospice social worker, archeology faculty member, teacher, radio electronics officer, case briefer)? Give summary @ -No Was smoking cessation discussed for >3mins.? @ -No Was critical care preformed (if so, how long)? @ -No Were there social determinants of health that impacted care today? How? (Homelessness, low income, unemployed, alcoholism, drug addiction, transportation, low edu. Level, literacy, decrease access to med. care, long term, rehab)? @ -No Was there de-escalation of care discussed even if they declined (Discuss DNR or withdrawal of care, Hospice)? DNR status @ -No What co-morbidities impacted this encounter? (DM, HTN, Smoking, COPD, CAD, Cancer, CVA, ARF, Chemo, Hep., AIDS, mental health diagnosis, sleep apnea, morbid obesity)? @ -dementia Was patient admitted / discharged? Hospital course, mention meds given and route, prescriptions, significant lab abnormalities, going to OR and other pertinent info. @ -dicharged. Workup unremarkable. Patient at baseline. Niece who is POA states patient will return to hospital for any return of symptoms. Undiagnosed new problem with uncertain prognosis? @ -yes Drug Therapy requiring intensive monitoring for toxicity (Heparin, Nitro, Insulin, Cardizem)? @ -No Were any procedures done? @ -No Diagnosis/symptom? @ -acute transient encephalopathy, hx dementia Acute, or Chronic, or Acute on Chronic? @ -acute on chronic Uncomplicated (without systemic symptoms) or Complicated (systemic symptoms)? @ -complicated Side effects of treatment? @ -No Exacerbation, Progression, or Severe Exacerbation? @ -yes Poses a threat to life or bodily function? How? (Chest pain, [place], [place], pneumonia, PE, COPD, DKA, ARF, appy, cholecystitis, CVA, Diverticulitis, Homicidal, Suicidal, threat to staff... and all critical care pts) @ -No - Lab Data Result diagrams: 12/23/22 11:05 12/23/22 11:05 Lab Results 12/23/22 12/23/22 12/23/22 Range/Units 11:05 11:05 11:05 WBC 5.3 (3.8-10.6) k/uL RBC 3.87 (3.80-5.40) m/uL Hgb 11.6 (11.4-16.0) gm/dL Hct 35.0 (34.0-46.0) % MCV 90.3 (80.0-100.0) fL MCH 30.0 (25.0-35.0) pg MCHC 33.2 (31.0-37.0) g/dL RDW 13.9 (11.5-15.5) % Plt Count 163 (150-450) k/uL MPV 9.0 Neutrophils % 62 % Lymphocytes % 25 % Monocytes % 8 % Eosinophils % 3 % Basophils % 0 % Neutrophils # 3.3 (1.3-7.7) k/uL Lymphocytes # 1.3 (1.0-4.8) k/uL Monocytes # 0.4 (0-1.0) k/uL Eosinophils # 0.2 (0-0.7) k/uL Basophils # 0.0 (0-0.2) k/uL PT 11.0 (10.0-12.5) sec INR 1.0 (<1.2) APTT 26.3 (22.0-30.0) sec Sodium 142 (137-145) mmol/L Potassium 5.1 (3.5-5.1) mmol/L Chloride 103 (98-107) mmol/L Carbon Dioxide 28 (22-30) mmol/L Anion Gap 11 mmol/L BUN 49 H (7-17) mg/dL Creatinine 1.23 H (0.52-1.04) mg/dL Est GFR (CKD-EPI)AfAm 46 (>60 ml/min/1.73 sqM) Est GFR (CKD-EPI)NonAf 40 (>60 ml/min/1.73 sqM) Glucose 95 (74-99) mg/dL POC Glucose (mg/dL) (70-110) mg/dL POC Glu Garbage Stoker ID Calcium 8.8 (8.4-10.2) mg/dL Total Bilirubin 0.6 (0.2-1.3) mg/dL AST 25 (14-36) U/L ALT 14 (4-34) U/L Alkaline Phosphatase 77 (38-126) U/L Troponin I (0.000-0.034) ng/mL Total Protein 6.9 (6.3-8.2) g/dL Albumin 4.0 (3.5-5.0) g/dL Urine Color Urine Appearance (Clear) Urine pH (5.0-8.0) Ur Specific [place] (1.001-1.035) Urine Protein (Negative) Urine Glucose (UA) (Negative) Urine Ketones (Negative) Urine Blood (Negative) Urine Nitrite (Negative) Urine Bilirubin (Negative) Urine Urobilinogen (<2.0) mg/dL Ur Leukocyte Esterase (Negative) 12/23/22 12/23/22 12/23/22 Range/Units 11:05 11:05 11:15 WBC (3.8-10.6) k/uL RBC (3.80-5.40) m/uL Hgb (11.4-16.0) gm/dL Hct (34.0-46.0) % MCV (80.0-100.0) fL MCH (25.0-35.0) pg MCHC (31.0-37.0) g/dL RDW (11.5-15.5) % Plt Count (150-450) k/uL MPV Neutrophils % % Lymphocytes % % Monocytes % % Eosinophils % % Basophils % % Neutrophils # (1.3-7.7) k/uL Lymphocytes # (1.0-4.8) k/uL Monocytes # (0-1.0) k/uL Eosinophils # (0-0.7) k/uL Basophils # (0-0.2) k/uL PT (10.0-12.5) sec INR (<1.2) APTT (22.0-30.0) sec Sodium (137-145) mmol/L Potassium (3.5-5.1) mmol/L Chloride (98-107) mmol/L Carbon Dioxide (22-30) mmol/L Anion Gap mmol/L BUN (7-17) mg/dL Creatinine (0.52-1.04) mg/dL Est GFR (CKD-EPI)AfAm (>60 ml/min/1.73 sqM) Est GFR (CKD-EPI)NonAf (>60 ml/min/1.73 sqM) Glucose (74-99) mg/dL POC Glucose (mg/dL) 115 H (70-110) mg/dL POC Glu Garbage Stoker ID Claribel Callahan Calcium (8.4-10.2) mg/dL Total Bilirubin (0.2-1.3) mg/dL AST (14-36) U/L ALT (4-34) U/L Alkaline Phosphatase (38-126) U/L Troponin I 0.023 (0.000-0.034) ng/mL Total Protein (6.3-8.2) g/dL Albumin (3.5-5.0) g/dL Urine Color Colorless Urine Appearance Clear (Clear) Urine pH 7.0 (5.0-8.0) Ur Specific [place] 1.010 (1.001-1.035) Urine Protein Negative (Negative) Urine Glucose (UA) Negative (Negative) Urine Ketones Negative (Negative) Urine Blood Negative (Negative) Urine Nitrite Negative (Negative) Urine Bilirubin Negative (Negative) Urine Urobilinogen <2.0 (<2.0) mg/dL Ur Leukocyte Esterase Negative (Negative) Disposition Clinical Impression: Acute encephalopathy, Tremors of nervous system Disposition: HOME SELF-CARE Condition: Stable Instructions (If sedation given, give patient instructions): Tremors (ED) Additional Instructions: Please follow-up with your primary care doctor within 2-4 days. Return to the emergency room should you have any new or worsening symptoms Is patient prescribed a controlled substance at d/c from ED?: No Referrals: Mark Blas MD [Primary Care Provider] - 1-2 days Time of Disposition: 14:32
[2022-12-23 15:23] VITALS: BP 163/97; PULSE 69; RESP 16; TEMP 98.2
== END 2022-12-23 15:06 | disposition home or self-care (01) ==
LOC: EC 10:35
DX: G93.49 Other encephalopathy (principal); G25.0 Essential tremor; R00.1 Bradycardia, unspecified; I25.10 Atherosclerotic heart disease of native coronary artery without angina pectoris; I11.0 Hypertensive heart disease with heart failure; I50.9 Heart failure, unspecified; K21.9 Gastro-esophageal reflux disease without esophagitis; E78.5 Hyperlipidemia, unspecified; F03.90 Unspecified dementia, unspecified severity, without behavioral disturbance, psychotic disturbance, mood disturbance, and anxiety; Z95.2 Presence of prosthetic heart valve; Z79.899 Other long term (current) drug therapy
CPT/HCPCS: 36415; 70450; 71046; 80053; 81003; 84484; 85025; 85610; 85730; 93005; 99285